=== PATIENT | male | born 1935 | race Caucasian/White ===

== ENCOUNTER 2018-09-27 09:39 | Inpatient (IN) | END 2018-09-30 17:11 | disposition home health service (06) | DRG 683 ==

== ENCOUNTER 2019-03-31 07:38 | Inpatient (IN) | payer MEDICARE, OTHER ==
[~2019-03-31] VITALS: Ht 172.7 cm; Wt 84.0 kg
[~2019-03-31 07:38] MED LIST: ATOR40TA21; BRIM10DR10 BOTH EYES; DORZ10DR5 BOTH EYES; GLIP5TAB3; KETO5DRO79 LEFT EYE; LOSA50TA2; METF-849; OMEG-135
[2019-03-31] MEDS ORDERED: LIDOCAINE 2%/EPI MPF (SDV) 20 ML VIAL INJ STA (07:41)
[2019-03-31] MEDS ORDERED: morphine 4 MG/ML VIAL IV STA (07:41)
[2019-03-31] MEDS ORDERED: ONDANSETRON 4 MG INJ IV STA (07:41)
[2019-03-31] MEDS ORDERED: DIPHTH/TET/ACEL PERTUSS (ADULT) 0.5 ML VIAL IM* ONE (08:00)
[2019-03-31] MEDS ORDERED: HYDROmorphONE 2 MG/ML SYG IV STA (09:15)
[2019-03-31] MEDS ORDERED: ONDANSETRON 4 MG INJ IV PRN ×2 (10:30→12:00)
[2019-03-31] MEDS ORDERED: ACETAMINOPHEN 325 MG TAB PO PRN ×2 (10:30→12:00)
[2019-03-31] MEDS ORDERED: ATOR40TA68 PO (10:37)
[2019-03-31] MEDS ORDERED: ATEN100T PO (11:00)
[2019-03-31] MEDS ORDERED: ICOS1CAP PO (11:01)
[2019-03-31] MEDS ORDERED: LOSA100T15 PO (11:01)
[2019-03-31] MEDS ORDERED: BRIM10DR10 BOTH EYES (11:02)
[2019-03-31] MEDS ORDERED: METF100010 PO (11:02)
[2019-03-31] MEDS ORDERED: EXEN2AUT SQ (11:03)
--- NOTE | 2019-03-31 11:15 | ERD ---
ER Documentation Chief Complaint Chief Complaint lac post head and R. ankle pain x 30 minutes post slip/fall HPI Patient is a 83-year-old male with diabetes and anemia who presents with a mechanical trip and fall. Please note that a [employer] registered nurse bone marrow transplant was used for the history and physical exam. The patient has a lack to the posterior scalp. He has right-sided leg pain and says "I think my leg is broken". This happened just prior to arrival. He has had no treatment as of yet. Upon review of old medical records this is the patient's eighth visit to the ER since 2007. His primary doctor is Dr. Alvarado. ROS All systems reviewed and are negative except as per history of present illness. Medications Home Meds Reported Medications Exenatide Microspheres (Bydureon Bcise) 2 Mg/0.85 Ml Auto.injct, 2 MG SQ Q7D 03/31/19 Brimonidine Tartrate* (Brimonidine Tartrate*) 0.15%-10ML Drop Opht, 1 DROP BOTH EYES BID, #1 EA 03/31/19 Metformin Hcl* (Metformin Hcl*) 1,000 Mg Tablet, 1000 MG PO WITH BREAKFAST DINNE, #60 TAB 03/31/19 Losartan Potassium* (Losartan Potassium*) 100 Mg Tablet, 100 MG PO DAILY, TAB 03/31/19 Icosapent Ethyl (VASCEPA) 1 Gm Capsule, 1 GM PO BID, CAP 03/31/19 Atenolol* (Atenolol*) 100 Mg Tablet, 100 MG PO DAILY, #30 TAB 03/31/19 Atorvastatin* (Atorvastatin*) 40 Mg Tablet, 40 MG PO QHS, #30 TAB 03/31/19 Discontinued Reported Medications Ketorolac Tromethamine Oph (Ketorolac Tromethamine Oph) 0.4%-5 Ml Opht Drops, 1 DROP LEFT EYE BID, EA 09/30/18 Brimonidine Tartrate* (Brimonidine Tartrate*) 0.15%-10ML Drop Opht, 1 DROP BOTH EYES BID, #1 EA 09/30/18 Dorzolamide Hcl* (Dorzolamide Hcl*) 10 Ml Drops, 1 DROP BOTH EYES BID, #1 EA 09/30/18 Fish Oil* (Fish Oil*) 1,000 Mg Cap 03/19/11 Losartan Potassium* (Cozaar*) 50 Mg Tablet 03/19/11 Glipizide* (Glucotrol*) 5 Mg Tablet 03/19/11 Metformin* (Glucophage*) 500 Mg Tab 03/19/11 Atorvastatin (Lipitor) 40 Mg Tablet 03/19/11 Allergies Allergies: Coded Allergies: No Known Allergy (Verified , 03/31/19) PMhx/Soc History of Surgery: No (LT knee joint 5 years ago; retina LT eye 2 years ago) Anesthesia Reaction: No Hx Neurological Disorder: No Hx Respiratory Disorders: No Hx Cardiac Disorders: Yes (HTN) Hx Psychiatric Problems: No Hx Miscellaneous Medical Probl: Yes (HTN , DM , CAD, CKD , MINERAL BONE D ISORDER , ) Hx Alcohol Use: No Hx Substance Use: No Hx Tobacco Use: No Smoking Status: Never smoker FmHx Family History: No diabetes Physical Exam Vitals Vital Signs Date Temp Pulse Resp B/P (MAP) Pulse Ox O2 O2 Flow FiO2 Time Delivery Rate 03/31/19 98.3 90 18 141/87 97 Nasal 2.0 10:18 (105) Cannula 03/31/19 Nasal 2 08:19 Cannula 03/31/19 98.0 82 18 163/95 97 07:46 (117) Physical Exam Const: Moderate distress Head: Lacerations to the posterior scalp approximately 3 cm each Eyes: Normal Conjunctiva ENT: Normal External Ears, Nose and Mouth. Neck: Full range of motion. No meningismus. Resp: Clear to auscultation bilaterally Cardio: Regular rate and rhythm, no murmurs Abd: Soft, non tender, non distended. Normal bowel sounds Skin: To 3 cm lacerations to the posterior scalp Back: No midline or flank tenderness Ext: Swelling and pain to the distal tibia and fibula deformity of the right lower extremity Neur: Awake and alert Psych: Normal Mood and Affect Result Diagram: 03/31/19 0803/31/19 08 Results 24 hrs Laboratory Tests Test 03/31/19 08:05 White Blood Count 5.9 10^3/ul Red Blood Count 3.98 10^6/ul Hemoglobin 11.9 g/dl Hematocrit 37.5 % Mean Corpuscular Volume 94.2 fl Mean Corpuscular Hemoglobin 29.9 pg Mean Corpuscular Hemoglobin Concent 31.7 g/dl Red Cell Distribution Width 12.5 % Platelet Count 205 10^3/UL Mean Platelet Volume 10.1 fl Immature Granulocytes % 0.500 % Neutrophils % 62.3 % Lymphocytes % 20.4 % Monocytes % 11.6 % Eosinophils % 4.4 % Basophils % 0.8 % Nucleated Red Blood Cells % 0.0 /100WBC Immature Granulocytes # 0.030 10^3/ul Neutrophils # 3.7 10^3/ul Lymphocytes # 1.2 10^3/ul Monocytes # 0.7 10^3/ul Eosinophils # 0.3 10^3/ul Basophils # 0.1 10^3/ul Nucleated Red Blood Cells # 0.0 10^3/ul Prothrombin Time 13.1 Sec Prothrombin Time Ratio 1.0 INR International Normalized Ratio 0.98 Activated Partial Thromboplast Time 28.1 Sec Sodium Level 143 mmol/L Potassium Level 4.9 mmol/L Chloride Level 106 mmol/L Carbon Dioxide Level 26 mmol/L Anion Gap 11 Blood Urea Nitrogen 21 mg/dl Creatinine 1.75 mg/dl Est Glomerular Filtrat Rate mL/min mL/min Glucose Level 154 mg/dl Calcium Level 9.2 mg/dl Troponin I < 0.012 ng/ml Current Medications Medications Dose Sig/Clifton Start Time Status Last (Trade) Ordered Route PRN Stop Time Admin Dose Reason Admin Morphine 4 mg ONCE STAT 03/31/19 DC 03/31/19 Sulfate IV 07:41 08:02 (morphine) 03/31/19 07:43 Ondansetron 4 mg ONCE STAT 03/31/19 DC 03/31/19 HCl (Zofran IV 07:41 08:02 Inj) 03/31/19 07:43 Diphtheria/ 0.5 ml ONCE ONCE 03/31/19 DC 03/31/19 Tetanus/Acell IM* 08:00 08:27 Pertussis 03/31/19 08:01 (Adacel) Lidocaine/ 20 ml ONCE STAT 03/31/19 DC 03/31/19 Epinephrine INJ 07:41 08:25 (Xylocaine 03/31/19 07:43 2%/ Epi Mpf(Sdv)) 1 mg ONCE STAT 03/31/19 DC 03/31/19 Hydromorphone IV 09:15 09:19 HCl 03/31/19 09:16 (Dilaudid) Ondansetron 4 mg BRIDGE ORDER 03/31/19 HCl (Zofran PRN IV 10:30 Inj) NAUSEA/VOMITI 04/01/19 10:29 NG 650 mg ER BRIDGE 03/31/19 Acetaminophen PRN PO 10:30 (Tylenol .MILD PAIN 04/01/19 10:29 Tab) 1-3 OR TEMP Procedures/MDM CT head shows no skull fracture or bleed per radiology. CT cervical spine shows no fracture per radiology. Tibia and fibula x-ray shows comminuted fracture of both bones per radiology. Chest x-ray negative per radiology. EKG read by me: Rate/Rhythm: Regular rate and rhythm at a normal rate Intervals: Normal Impression: No evidence of ischemia or arrhythmia Laceration Repair x2 by me: Anesthesia: 1% lidocaine [with] epinephrine locally Location: Posterior scalp Tendon/Joint/Nerves: No injury Foreign body: None detected after copious irrigation and exploration Technique: Ryan Complexity: No subcutaneous sutures/mucosal repair/edge excision Post Closure Length: 3 cm and 3 cm Patient's bleeding was easily controlled in the department and there is no indication of anemia. No evidence of compartment syndrome, neurologic injury, vascular injury, open joint, tendon laceration, or foreign body. Splint Note Type: Posterior leg Location: Right lower extremity Indication: Tibia and fibula fractures Splint Assessment: Neurovascularly intact post splint placement with good fit. Patient is an 83-year-old male who presents with a trip and fall. He has a scalp laceration which was closed with francisco. He has a tibia and fibula comminuted closed fracture of the right lower extremity. This was splinted. I spoke with Dr. Redding from orthopedic surgery who will see the patient for consultation and fixation. He will be admitted to the care of Dr. Joshua from the panel team to a medical surgical bed. Departure Diagnosis: Primary Impression: Fibula fracture Encounter type: initial encounter Fibula location: distal Fracture type: closed Fracture morphology: other fracture Laterality: right Qualified Codes: S82.831A - Other fracture of upper and lower end of right fibula, initial encounter for closed fracture Additional Impressions: Laceration Tibia fracture Encounter type: initial encounter Tibia location: distal Fracture type: closed Fracture morphology: other fracture Laterality: right Qualified Codes: S82.391A - Other fracture of lower end of right tibia, initial encounter for closed fracture Fall Encounter type: initial encounter Qualified Codes: W19.XXXA - Unspecified fall, initial encounter Condition: KAILEE Suárez MD Mar 31, 2019 11:15
[2019-03-31] MEDS: INSULIN ASPART [NOVOLOG] 3 ML PEN SC SCH ×3 (12:00→22:42)
[2019-03-31] MEDS ORDERED: NACL 0.9% 3 ML SYG IV SCH (12:00)
--- NOTE | 2019-03-31 12:29 | HP ---
Date/Time of Note Date/Time of Note DATE: 03/31/19 TIME: 12:29 Assessment/Plan VTE Prophylaxis SCD applied (from Nsg): Yes Pharmacological prophylaxis: NA/contraindicated Pharm contraindication: bleeding Lines/Catheters IV Catheter Type (from Nrsg): Saline Lock Assessment/Plan Hospital Course SUBJECTIVE: Lying in bed, no acute distress. OBJECTIVE: Vital signs-see below PHYSICAL EXAM: Constitutional: Adequately built,not in acute distress. HEENT:Scalp laceration-stapled. Eyes: Extraocular muscles intact. Anicteric sclerae. Pupils equal bilaterally, reactive to light. NECK: Supple without lymph node. CHEST: Clear and good breath sounds equally. No wheezing. No rhonchi. HEART: S1, S2. Regular rate and rhythm. ABDOMEN: Soft/non tender with no rebound tenderness. Bowel sounds were present. EXTREMITIES: RLE bandaged. No cyanosis, clubbing or edema. NEUROLOGIC: Alert and oriented x3. No focal deficit. No sensory deficit. PSYCHOSOCIAL: No signs of depression. INTEGUMENTARY: No open wounds. ASSESSMENT AND PLAN:83 yo M w/hearing loss,s/p cochlear implant, htn,cad,dm2 here s/p fall found to have scalp lacerations and Right tibial/fibular fracture... Right tibia/fibula fracture -Orthopedic on board and plan for surgical intervention tomorrow -Hold off to chemical anticoagulation secondary to scalp bleeding requiring staple -SCDs, pain control, nonweightbearing RLE -We will obtain a preoperative cardiac risk stratification. Acute kidney injury versus CKD -Acute kidney injury likely secondary to hemodynamics -We will give IV fluids. Hold losartan -Repeat renal function in a.m. Posterior scalp laceration -Status post washout/closure. Intact francisco. No further oozing noted. DM2 -Basal/Bolus insulin HTN -Resume home medications -Hold losartan secondary to acute kidney injury Coronary artery disease -Hold antiplatelet in anticipation for surgery. cont. beta-blockers and statin Dyslipidemia -Resume statin Anemia, likely chronic -H&H stable DVT prophylaxis: SCDs for now. Hold off to chemical anticoagulation secondary to scalp bleeding. Postoperative anticoagulation per surgery In anticipation for orthopedic surgery, will go ahead and obtain 2D echocardiogram and rule out ACS with serial troponin. Patient will have a formal cardiology evaluation for cardiac risk stratification. Once cardiac clearance is obtained, patient may proceed with surgical intervention. Rest of the management depend on clinical course Approximately 60 m spent on this history and physical. Patient was seen in collaboration with Dr. Joshua Result Diagram: 03/31/19 0805 03/31/19 0805 Results 24hrs Laboratory Tests Test 03/31/19 08:05 White Blood Count 5.9 Red Blood Count 3.98 L Hemoglobin 11.9 L Hematocrit 37.5 L Mean Corpuscular Volume 94.2 Mean Corpuscular Hemoglobin 29.9 Mean Corpuscular Hemoglobin Concent 31.7 L Red Cell Distribution Width 12.5 Platelet Count 205 Mean Platelet Volume 10.1 Immature Granulocytes % 0.500 H Neutrophils % 62.3 Lymphocytes % 20.4 Monocytes % 11.6 H Eosinophils % 4.4 Basophils % 0.8 Nucleated Red Blood Cells % 0.0 Immature Granulocytes # 0.030 Neutrophils # 3.7 Lymphocytes # 1.2 Monocytes # 0.7 Eosinophils # 0.3 Basophils # 0.1 Nucleated Red Blood Cells # 0.0 Prothrombin Time 13.1 Prothrombin Time Ratio 1.0 INR International Normalized Ratio 0.98 Activated Partial Thromboplast Time 28.1 Sodium Level 143 Potassium Level 4.9 Chloride Level 106 Carbon Dioxide Level 26 Anion Gap 11 Blood Urea Nitrogen 21 H Creatinine 1.75 H Est Glomerular Filtrat Rate mL/min Glucose Level 154 Calcium Level 9.2 Troponin I < 0.012 HPI/ROS Admit Date/Time Admit Date/Time Hx of Present Illness This is a 83-year-old male with a history of hypertension, hearing impairment, status post left cochlear implant, coronary artery disease, diabetes, gait imbalance/dizziness who also uses a walker at home, brought into the emergency room with scalp bleed, right lower extremity pain after fall. Patient was noted with a scalp laceration and right tibia/fibular fracture. At my encounter with the patient, he denied any chest pain, palpitation, shortness of breath, nausea, vomiting, abdominal pain, loss of consciousness, dizziness, headache, diarrhea, fever, chills, numbness, tingling or other constitutional symptoms. Labs showed hemoglobin 11.9, hematocrit 37.5, BUN [address] brain negative for acute bleed or infarct. Right ankle x-ray showed Comminuted angulated and displaced fracture of the distal tibial diaphysis and distal fibular shaft. Orthopedic consultation was called from the emergency room with plan for surgical intervention tomorrow. Patient's vital s igns able except for blood pressure 163/95. Scalp laceration was closed with francisco in the emergency room and a splint was applied to right lower extremity fracture. ROS A 12 point review of system was assessed and is negative other than what is mentioned in the HPI PMH/Family/Social Past Medical History See HPI Medications Current Medications Ondansetron HCl (Zofran Inj) 4 mg BRIDGE ORDER PRN IV NAUSEA/VOMITING; Start 03/31/19 at 10:30; Stop 04/01/19 at 10:29 Acetaminophen (Tylenol Tab) 650 mg ER BRIDGE PRN PO .MILD PAIN 1-3 OR TEMP; Start 03/31/19 at 10:30; Stop 04/01/19 at 10:29 IV Flush (NS 3 ml) 3 ml PER PROTOCOL IV ; Start 03/31/19 at 12:00 Ondansetron HCl (Zofran Inj) 4 mg Q6H PRN IV NAUSEA/VOMITING; Start 03/31/19 at 12:00 Acetaminophen (Tylenol Tab) 650 mg Q6H PRN PO .PAIN 1-3 OR TEMP; Start 03/31/19 at 12:00 Morphine Sulfate (morphine) 2 mg Q4H PRN IV .SEVERE PAIN 7-10; Start 03/31/19 at 12:00 Famotidine (Pepcid) 20 mg HS PO ; Start 03/31/19 at 21:00 Diagnostic Test (Pha) (Accu-Chek) 1 ea 02 XX ; Start 04/01/19 at 02:00 Insulin Glargine (Lantus) 12 units DAILY@2000 SC ; Start 03/31/19 at 20:00 Insulin Aspart (Novolog Insulin Pen) NOVOLOG *MILD* ALGORITHM WITH MEALS B EDTIME SC ; Start 03/31/19 at 12:00 Sodium Chloride 1,000 ml @ 80 mls/hr [id number] IV ; Start 03/31/19 at 12:00 Miscellaneous Information 1 ea NOTE XX ; Start 03/31/19 at 12:30 Glucose (Glutose) 15 gm Q15M PRN PO DECREASED GLUCOSE; Start 03/31/19 at 12:30 Glucose (Glutose) 22.5 gm Q15M PRN PO DECREASED GLUCOSE; Start 03/31/19 at 12:30 Dextrose (D50w Syringe) 25 ml Q15M PRN IV DECREASED GLUCOSE; Start 03/31/19 at 12:30 Dextrose (D50w Syringe) 50 ml Q15M PRN IV DECREASED GLUCOSE; Start 03/31/19 at 12:30 Glucagon (Glucagen) 1 mg Q15M PRN IM DECREASED GLUCOSE; Start 03/31/19 at 12:30 Glucose (Glutose) 15 gm Q15M PRN BUCCAL DECREASED GLUCOSE; Start 03/31/19 at 12:30 Coded Allergies: No Known Allergy (Verified , 03/31/19) Past Surgical History See HPI Social History Denied history of alcohol, smoking or illicit drug use Smoking Status: Never smoker Exam/Review of Systems Vital Signs Vitals Vital Signs Date Temp Pulse Resp B/P (MAP) Pulse Ox O2 O2 Flow FiO2 Time Delivery Rate 03/31/19 98.3 90 18 141/87 97 Nasal 2.0 10:18 (105) Cannula RUTH ANN HILARIO NP Mar 31, 2019 12:29
[2019-03-31] MEDS ORDERED: GLUCOSE GEL 15 GRAM TUBE BUCCAL PRN (12:30)
[2019-03-31] MEDS ORDERED: DEXTROSE 50% 50 ML SYRINGE IV PRN ×2 (12:30)
[2019-03-31] MEDS ORDERED: GLUCAGON 1 MG INJ IM PRN (12:30)
[2019-03-31] MEDS ORDERED: GLUCOSE GEL 15 GRAM TUBE PO PRN ×2 (12:30)
--- NOTE | 2019-03-31 13:13 | CONS ---
Assessment/Plan Assessment/Plan Hospital Course (Demo Recall) Pre-operative evaluation: The patient is to undergo intermediate risk surgery. He does not have any active decompensated cardiac conditions by history or exam. Echo shows normal EF and no severe valvular dysfunction. He is not very active at baseline but with daily activities he has no symptoms (except for dizziness/gait imbalance). 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 so Im sure bradyarrhythmias have been ruled out by now s/p cochlear implant CAD: unknown details DM HTN -ok to proceed with surgery as planned -restart home BP meds Consultation Date/Type/Reason Admit Date/Time Date of Consultation: Mar 31, 2019 Type of Consult Cardiology Reason for Consultation Pre-op evaluation Requesting Provider: RUTH ANN HILARIO NP Date/Time of Note DATE: 03/31/19 TIME: 13:11 Hx of Present Illness 83 yo M with a reported h/o CAD, HTN, hearing impairment/imbalance s/p left cochlear implant, who presented s/p fall and was found to have a scalp laceration and right tibia/fibular fracture with plans for surgical repair. He is Farsi speaking and a video monitor was initially used but due to hearing impairment and the lack of physical availability of the systems manager, he preferred to speak in Romanian with me instead. He notes that he has chronic imbalance/vertigo and has to use a walker. He recently had a cochlear implant and was to have a head CT to check on it in a few days but instead presented today post fall. He was using his walker when he felt very dizzy and lost his balance, causing the fall. No syncope. He walks with the walker in general and denies chest pain or SOB. No orthopnea, PND, edema. 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 Only complaint at this time is right leg pain. per HPI Past Medical History per HPI Home Meds Reported Medications Exenatide Microspheres (Bydureon Bcise) 2 Mg/0.85 Ml Auto.injct, 2 MG SQ Q7D 03/31/19 Brimonidine Tartrate* (Brimonidine Tartrate*) 0.15%-10ML Drop Opht, 1 DROP BOTH EYES BID, #1 EA 03/31/19 Metformin Hcl* (Metformin Hcl*) 1,000 Mg Tablet, 1000 MG PO WITH BREAKFAST DINNE, #60 TAB 03/31/19 Losartan Potassium* (Losartan Potassium*) 100 Mg Tablet, 100 MG PO DAILY, TAB 03/31/19 Icosapent Ethyl (VASCEPA) 1 Gm Capsule, 1 GM PO BID, CAP 03/31/19 Atenolol* (Atenolol*) 100 Mg Tablet, 100 MG PO DAILY, #30 TAB 03/31/19 Atorvastatin* (Atorvastatin*) 40 Mg Tablet, 40 MG PO QHS, #30 TAB 03/31/19 Discontinued Reported Medications Ketorolac Tromethamine Oph (Ketorolac Tromethamine Oph) 0.4%-5 Ml Opht Drops, 1 DROP LEFT EYE BID, EA 09/30/18 Brimonidine Tartrate* (Brimonidine Tartrate*) 0.15%-10ML Drop Opht, 1 DROP BOTH EYES BID, #1 EA 09/30/18 Dorzolamide Hcl* (Dorzolamide Hcl*) 10 Ml Drops, 1 DROP BOTH EYES BID, #1 EA 09/30/18 Fish Oil* (Fish Oil*) 1,000 Mg Cap 03/19/11 Losartan Potassium* (Cozaar*) 50 Mg Tablet 03/19/11 Glipizide* (Glucotrol*) 5 Mg Tablet 03/19/11 Metformin* (Glucophage*) 500 Mg Tab 03/19/11 Atorvastatin (Lipitor) 40 Mg Tablet 03/19/11 Medications Current Medications Ondansetron HCl (Zofran Inj) 4 mg BRIDGE ORDER PRN IV NAUSEA/VOMITING; Start 03/31/19 at 10:30; Stop 04/01/19 at 10:29 Acetaminophen (Tylenol Tab) 650 mg ER BRIDGE PRN PO .MILD PAIN 1-3 OR TEMP; Start 03/31/19 at 10:30; Stop 04/01/19 at 10:29 IV Flush (NS 3 ml) 3 ml PER PROTOCOL IV ; Start 03/31/19 at 12:00 Ondansetron HCl (Zofran Inj) 4 mg Q6H PRN IV NAUSEA/VOMITING; Start 03/31/19 at 12:00 Acetaminophen (Tylenol Tab) 650 mg Q6H PRN PO .PAIN 1-3 OR TEMP; Start 03/31/19 at 12:00 Morphine Sulfate (morphine) 2 mg Q4H PRN IV .SEVERE PAIN 7-10; Start 03/31/19 at 12:00 Famotidine (Pepcid) 20 mg HS PO ; Start 03/31/19 at 21:00 Diagnostic Test (Pha) (Accu-Chek) 1 ea 02 XX ; Start 04/01/19 at 02:00 Insulin Glargine (Lantus) 12 units DAILY@2000 SC ; Start 03/31/19 at 20:00 Insulin Aspart (Novolog Insulin Pen) NOVOLOG *MILD* ALGORITHM WITH MEALS BEDTIME SC ; Start 03/31/19 at 12:00 Sodium Chloride 1,000 ml @ 80 mls/hr [id number] IV ; Start 03/31/19 at 12:00 Miscellaneous Information 1 ea NOTE XX ; Start 03/31/19 at 12:30 Glucose (Glutose) 15 gm Q15M PRN PO DECREASED GLUCOSE; Start 03/31/19 at 12:30 Glucose (Glutose) 22.5 gm Q15M PRN PO DECREASED GLUCOSE; Start 03/31/19 at 12:30 Dextrose (D50w Syringe) 25 ml Q15M PRN IV DECREASED GLUCOSE; Start 03/31/19 at 12:30 Dextrose (D50w Syringe) 50 ml Q15M PRN IV DECREASED GLUCOSE; Start 03/31/19 at 12:30 Glucagon (Glucagen) 1 mg Q15M PRN IM DECREASED GLUCOSE; Start 03/31/19 at 12:30 Glucose (Glutose) 15 gm Q15M PRN BUCCAL DECREASED GLUCOSE; Start 03/31/19 at 12:30 Allergies: Coded Allergies: No Known Allergy (Verified , 03/31/19) Social History Smoking Status: Never smoker Exam/Review of Systems Vital Signs Vitals Vital Signs Date Temp Pulse Resp B/P (MAP) Pulse Ox O2 O2 Flow FiO2 Time Delivery Rate 03/31/19 98.3 90 18 141/87 97 Nasal 2.0 10:18 (105) Cannula Exam Constitutional: alert, oriented Psych: no complaints, nl mood/affect Head: normocephalic; No atraumatic (laceratiopn of scalp) Neck: supple; No jvd Respiratory: clear to auscultation; No crackles/rales Cardiovascular: regular rate and rhythm, systolic murmur (2/6 SUKHDEV); No edema Gastrointestinal: soft, non-tender; No distended Musculoskeletal: No nl extremities to inspection (right leg wrapped) Neurological: nl mental status, nl speech Additional Comments EKG: sinus with 1st degree AVB, no ST changes Labs Result Diagram: 03/31/19 0805 03/31/19 0805 Results 24hrs Laboratory Tests Test 03/31/19 08:05 White Blood Count 5.9 Red Blood Count 3.98 L Hemoglobin 11.9 L Hematocrit 37.5 L Mean Corpuscular Volume 94.2 Mean Corpuscular Hemoglobin 29.9 Mean Corpuscular Hemoglobin Concent 31.7 L Red Cell Distribution Width 12.5 Platelet Count 205 Mean Platelet Volume 10.1 Immature Granulocytes % 0.500 H Neutrophils % 62.3 Lymphocytes % 20.4 Monocytes % 11.6 H Eosinophils % 4.4 Basophils % 0.8 Nucleated Red Blood Cells % 0.0 Immature Granulocytes # 0.030 Neutrophils # 3.7 Lymphocytes # 1.2 Monocytes # 0.7 Eosinophils # 0.3 Basophils # 0.1 Nucleated Red Blood Cells # 0.0 Prothrombin Time 13.1 Prothrombin Time Ratio 1.0 INR International Normalized Ratio 0.98 Activated Partial Thromboplast Time 28.1 Sodium Level 143 Potassium Level 4.9 Chloride Level 106 Carbon Dioxide Level 26 Anion Gap 11 Blood Urea Nitrogen 21 H Creatinine 1.75 H Est Glomerular Filtrat Rate mL/min Glucose Level 154 Calcium Level 9.2 Troponin I < 0.012 Medications Medications Current Medications Ondansetron HCl (Zofran Inj) 4 mg BRIDGE ORDER PRN IV NAUSEA/VOMITING; Start 03/31/19 at 10:30; Stop 04/01/19 at 10:29 Acetaminophen (Tylenol Tab) 650 mg ER BRIDGE PRN PO .MILD PAIN 1-3 OR TEMP; Start 03/31/19 at 10:30; Stop 04/01/19 at 10:29 IV Flush (NS 3 ml) 3 ml PER PROTOCOL IV ; Start 03/31/19 at 12:00 Ondansetron HCl (Zofran Inj) 4 mg Q6H PRN IV NAUSEA/VOMITING; Start 03/31/19 at 12:00 Acetaminophen (Tylenol Tab) 650 mg Q6H PRN PO .PAIN 1-3 OR TEMP; Start 03/31/19 at 12:00 Morphine Sulfate (morphine) 2 mg Q4H PRN IV .SEVERE PAIN 7-10; Start 03/31/19 at 12:00 Famotidine (Pepcid) 20 mg HS PO ; Start 03/31/19 at 21:00 Diagnostic Test (Pha) (Accu-Chek) 1 ea 02 XX ; Start 04/01/19 at 02:00 Insulin Glargine (Lantus) 12 units DAILY@2000 SC ; Start 03/31/19 at 20:00 Insulin Aspart (Novolog Insulin Pen) NOVOLOG *MILD* ALGORITHM WITH MEALS BEDTIME SC ; Start 03/31/19 at 12:00 Sodium Chloride 1,000 ml @ 80 mls/hr [id number] IV ; Start 03/31/19 at 12:00 Miscellaneous Information 1 ea NOTE XX ; Start 03/31/19 at 12:30 Glucose (Glutose) 15 gm Q15M PRN PO DECREASED GLUCOSE; Start 03/31/19 at 12:30 Glucose (Glutose) 22.5 gm Q15M PRN PO DECREASED GLUCOSE; Start 03/31/19 at 12:30 Dextrose (D50w Syringe) 25 ml Q15M PRN IV DECREASED GLUCOSE; Start 03/31/19 at 12:30 Dextrose (D50w Syringe) 50 ml Q15M PRN IV DECREASED GLUCOSE; Start 03/31/19 at 12:30 Glucagon (Glucagen) 1 mg Q15M PRN IM DECREASED GLUCOSE; Start 03/31/19 at 12:30 Glucose (Glutose) 15 gm Q15M PRN BUCCAL DECREASED GLUCOSE; Start 03/31/19 at 12:30 SYED MENEZES Mar 31, 2019 13:13
--- NOTE | 2019-03-31 13:22 | RADRPT ---
Echocardiogram Report Patient Name: MATIAS OVIEDOatient ID: [id number] : 1935 (83y 8m)Study Date: 03/31/2019 12:03:29 PM Gender: MAccession #: [id number] Tech: Sj Putnam [facility] Location: -5 Ref.Physician: RUTH ANN HILARIO Height(Cm): BSA: Weight(Kg): Quality: Technically Difficult StudyOrder Physician: RUTH ANN HILARIO Account #: Procedures: Echocardiographic Report: Transthoracic echocardiogram with complete 2D, M-Mode, and doppler examination. Indications: Pre-op. Measurements: 2D/M Mode Doppler Measurement Value Normal Range Measurement Value Normal Range LVIDd 2D 3.4 [ 4.2 - 5.8 ] cm AV Peak Erick 1.4 [ 100.0 - 170.0 ] cm/sec LVIDs 2D 2.4 [ 2.5 - 4.0 ] cm AV Peak PG 8.0 [ 2.0 - 9.0 ] mmHg LVPWd 2D 0.9 [ 0.6 - 1.0 ] cm LVOT Peak Erick 1.5 [ 70.0 - 110.0 ] cm/sec IVSd 2D 1.6 [ 0.6 - 1.0 ] cm LVOT Peak PG 9.0 [ 2.0 - 6.0 ] mmHg AoR Diam 2D 2.5 [ 2.6 - 3.4 ] cm MV E Peak Erick 1.4 [ 60.0 - 130.0 ] cm/sec EDV 2D 47.4 [ 62.0 - 150.0 ] ml MV A Peak Erick 0.5 [ 100.0 - 120.0 ] cm/sec ESV 2D 20.4 [ 21.0 - 61.0 ] ml MV E/A 2.9 [ 0.8 - 1.5 ] ratio EF 2D 57.0 [ 52.0 - 72.0 ] percent MV Decel Time 141 [ 104 - 258 ] msec LA Dimen 2D 2.9 [ 3.0 - 4.0 ] cm Lat E` Erick 0.1 [ 10.0 - 15.0 ] cm/sec Lateral E/E` 10.3 [ 1.0 - 2.0 ] ratio Med E` Erick 0.1 cm/sec MV E/A 2.9 [ 0.8 - 1.5 ] ratio TR Peak Erick 2.1 [ 100.0 - 280.0 ] cm/sec TR Peak PG 17.0 mmHg RVSP 20.0 [ 10.0 - 36.0 ] mmHg RA Pressure 3.0 mmHg Findings: Left Ventricle: Normal left ventricular systolic function. Normal left ventricular cavity size. Moderate hypertrophy of the basal septum. No obstruction with and without valsalva. Ejection fraction is visually estimated at 65 %. Tissue Doppler/Mitral Doppler indices are within normal limits. Right Ventricle: Normal right ventricular size. Normal right ventricular systolic function. Left Atrium: There is moderate enlargement of left atrium. Right Atrium: The right atrium is normal in size. Mitral Valve: Mild mitral annular calcification. Trace mitral regurgitation. Aortic Valve: Aortic sclerosis without significant stenosis. Mild aortic valve regurgitation. Tricuspid Valve: Normal appearance of the tricuspid valve. The estimated Peak RVSP is 20 mmHg. There is trace tricuspid regurgitation. Pericardium: Normal pericardium with no significant pericardial effusion. Aorta: Normal aortic root. IVC: Normal size and normal respiratory collapse consistent with normal right atrial pressure. Conclusions: Normal left ventricular systolic function. Normal left ventricular cavity size. Moderate hypertrophy of the basal septum. No obstruction with and without valsalva. Ejection fraction is visually estimated at 65 %. Tissue Doppler/Mitral Doppler indices are within normal limits. Aortic sclerosis without significant stenosis. Mild aortic valve regurgitation. The estimated Peak RVSP is 20 mmHg. Normal size and normal respiratory collapse consistent with normal right atrial pressure. Electronically Signed By: Bolivar Case 2019-03-31 13:20:55 PDT
[2019-03-31] MEDS ORDERED: hydrALAzine 20 MG INJ IV PRN (15:00)
[2019-03-31] MEDS: SOD CHLORIDE 0.9% 1,000 ML IV SCH ×2 (15:05→16:11)
[2019-03-31] MEDS: morphine 2 MG INJ IV PRN ×2 (15:06→18:35)
[2019-03-31 15:48] VITALS: BP 145/82; RESP 14
[2019-03-31 16:02] VITALS: Ht 172.7 cm; Wt 84.0 kg
--- NOTE | 2019-03-31 16:42 | CONS ---
Assessment/Plan Assessment/Plan Hospital Course (Demo Recall) 83-year-old male with acute right distal third closed tibia and fibula shaft fracture. At this time I am recommending surgical fixation for the patient. I did discuss nonoperative treatment with the patient however I felt that it would be quite difficult to maintain reduction in the cast and here to have a lot more difficulty mobilizing. I recommended intramedullary nail of the right tibia. I reviewed the benefits and risks with the patient. The risks include but not limited to medical complications, anesthetic complications, cardiopulmonary complications, bleeding, infection, malunion, nonunion, hardware failure, neurovascular injury, need for further surgery. He understood these benefits and risks and wished to proceed with surgery. The patient is currently being seen by medicine cardiology who is currently working on optimizing the patient for surgery. Fortunately there is no operating time until tomorrow evening. Plan: Medical optimization Intramedullary nail right tibia with possible open reduction internal fixation of right fibula fracture 04/01/2019 Pain control Strict elevation and icing Nonweightbearing right lower extremity N.p.o. at midnight SCDs on left lower extremity for DVT prophylaxis. Consultation Date/Type/Reason Admit Date/Time Date of Consultation: Mar 31, 2019 Reason for Consultation right distal 1/3 tibia and fibula fracture Date/Time of Note DATE: 03/31/19 TIME: 16:40 Hx of Present Illness 83-year-old male presented to the emergency department after ground-level fall after losing his balance. He was found to have a closed distal third right tibia and fibula fracture. Orthopedics was consulted. 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 He has been using a walker since that cochlear implant for his disequilibrium. He had no previous known injury to the right lower leg. Denies any numbness and tingling. Complains of pain only on his right lower leg. He did have a scalp laceration which was treated by the emergency department. Head CT was negative for any intracranial injury or skull fracture. Patient denies fever, chills, shortness of breath, chest pain, nausea/vomiting, constipation, diarrhea, numbness, and tingling. Past Medical History DM2 HTN Coronary artery disease Dyslipidemia Anemia, likely chronic Home Meds Reported Medications Exenatide Microspheres (Bydureon Bcise) 2 Mg/0.85 Ml Auto.injct, 2 MG SQ Q7D 03/31/19 Brimonidine Tartrate* (Brimonidine Tartrate*) 0.15%-10ML Drop Opht, 1 DROP BOTH EYES BID, #1 EA 03/31/19 Metformin Hcl* (Metformin Hcl*) 1,000 Mg Tablet, 1000 MG PO WITH BREAKFAST DINNE, #60 TAB 03/31/19 Losartan Potassium* (Losartan Potassium*) 100 Mg Tablet, 100 MG PO DAILY, TAB 03/31/19 Icosapent Ethyl (VASCEPA) 1 Gm Capsule, 1 GM PO BID, CAP 03/31/19 Atenolol* (Atenolol*) 100 Mg Tablet, 100 MG PO DAILY, #30 TAB 03/31/19 Atorvastatin* (Atorvastatin*) 40 Mg Tablet, 40 MG PO QHS, #30 TAB 03/31/19 Discontinued Reported Medications Ketorolac Tromethamine Oph (Ketorolac Tromethamine Oph) 0.4%-5 Ml Opht Drops, 1 DROP LEFT EYE BID, EA 09/30/18 Brimonidine Tartrate* (Brimonidine Tartrate*) 0.15%-10ML Drop Opht, 1 DROP BOTH EYES BID, #1 EA 09/30/18 Dorzolamide Hcl* (Dorzolamide Hcl*) 10 Ml Drops, 1 DROP BOTH EYES BID, #1 EA 09/30/18 Fish Oil* (Fish Oil*) 1,000 Mg Cap 03/19/11 Losartan Potassium* (Cozaar*) 50 Mg Tablet 03/19/11 Glipizide* (Glucotrol*) 5 Mg Tablet 03/19/11 Metformin* (Glucophage*) 500 Mg Tab 03/19/11 Atorvastatin (Lipitor) 40 Mg Tablet 03/19/11 Medications Current Medications IV Flush (NS 3 ml) 3 ml PER PROTOCOL IV ; Start 03/31/19 at 12:00 Ondansetron HCl (Zofran Inj) 4 mg Q6H PRN IV NAUSEA/VOMITING; Start 03/31/19 at 12:00 Acetaminophen (Tylenol Tab) 650 mg Q6H PRN PO .PAIN 1-3 OR TEMP; Start 03/31/19 at 12:00 Morphine Sulfate (morphine) 2 mg Q4H PRN IV .SEVERE PAIN 7-10 Last administered on 03/31/19at 15:06; Admin Dose 2 MG; Start 03/31/19 at 12:00 Famotidine (Pepcid) 20 mg HS PO ; Start 03/31/19 at 21:00 Diagnostic Test (Pha) (Accu-Chek) 1 ea 02 XX ; Start 04/01/19 at 02:00 Insulin Glargine (Lantus) 12 units DAILY@2000 SC ; Start 03/31/19 at 20:00 Insulin Aspart (Novolog Insulin Pen) NOVOLOG *MILD* ALGORITHM WITH MEALS BEDTIME SC ; Start 03/31/19 at 12:00 Sodium Chloride 1,000 ml @ 80 mls/hr [id number] IV Last administered on 03/31/19at 16:11; Admin Dose 80 MLS/HR; Start 03/31/19 at 12:00 Miscellaneous Information 1 ea NOTE XX ; Start 03/31/19 at 12:30 Glucose (Glutose) 15 gm Q15M PRN PO DECREASED GLUCOSE; Start 03/31/19 at 12:30 Glucose (Glutose) 22.5 gm Q15M PRN PO DECREASED GLUCOSE; Start 03/31/19 at 12:30 Dextrose (D50w Syringe) 25 ml Q15M PRN IV DECREASED GLUCOSE; Start 03/31/19 at 12:30 Dextrose (D50w Syringe) 50 ml Q15M PRN IV DECREASED GLUCOSE; Start 03/31/19 at 12:30 Glucagon (Glucagen) 1 mg Q15M PRN IM DECREASED GLUCOSE; Start 03/31/19 at 12:30 Glucose (Glutose) 15 gm Q15M PRN BUCCAL DECREASED GLUCOSE; Start 03/31/19 at 12:30 Atenolol (Tenormin) 100 mg DAILY PO ; Start 03/31/19 at 15:00 Atorvastatin Calcium (Lipitor) 40 mg QHS PO ; Start 03/31/19 at 21:00 Brimonidine Tartrate (Alphagan P 0.15%) 1 drop BID BOTH EYES ; Start 03/31/19 at 21:00 Hydralazine HCl (Apresoline) 10 mg Q6H PRN IV sbp>160; Start 03/31/19 at 15:00 Allergies: Coded Allergies: No Known Allergy (Verified , 03/31/19) Past Surgical History Past Surgical Hx: noncontributory Family History Significant Family History: no pertinent family hx Social History Alcohol Use: rarely Smoking Status: Never smoker Drug Use: none Exam/Review of Systems Exam Vitals Vital Signs Date Temp Pulse Resp B/P (MAP) Pulse Ox O2 O2 Flow FiO2 Time Delivery Rate 03/31/19 98.7 14 145/82 98 Room Air 15:48 (103) 03/31/19 102 2.0 14:48 Exam General: Awake, alert, in no acute distress, pleasant and cooperative Heart: regular rhythm Lungs: breathing comfortably, no tachypnea or dyspnea MUSCULOSKELETAL: Right lower extremity: There is gross deformity of the distal tibia. The skin is intact. There is ecchymosis over the anterior distal tibia. There is tenderness palpation over the distal tibia and fibula. Sensation intact to light touch in a sural, saphenous, deep peroneal, superficial peroneal, medial and lateral plantar nerve distribution. Motor is intact, patient able to dorsiflex and plantarflex ankle and extend and flex great toe. Dorsalis Pedis pulse +2, Brisk capillary refill. Compartments are soft. Calves non-tender to palpation bilaterally. Results Result Diagram: 03/31/19 0803/31/19 08 Results 24hrs Laboratory Tests Test 03/31/19 08:05 03/31/19 12:43 03/31/19 16:17 White Blood Count 5.9 Red Blood Count 3.98 L Hemoglobin 11.9 L Hematocrit 37.5 L Mean Corpuscular Volume 94.2 Mean Corpuscular Hemoglobin 29.9 Mean Corpuscular Hemoglobin Concent 31.7 L Red Cell Distribution Width 12.5 Platelet Count 205 Mean Platelet Volume 10.1 Immature Granulocytes % 0.500 H Neutrophils % 62.3 Lymphocytes % 20.4 Monocytes % 11.6 H Eosinophils % 4.4 Basophils % 0.8 Nucleated Red Blood Cells % 0.0 Immature Granulocytes # 0.030 Neutrophils # 3.7 Lymphocytes # 1.2 Monocytes # 0.7 Eosinophils # 0.3 Basophils # 0.1 Nucleated Red Blood Cells # 0.0 Prothrombin Time 13.1 Prothrombin Time Ratio 1.0 INR International Normalized Ratio 0.98 Activated Partial Thromboplast Time 28.1 Sodium Level 143 Potassium Level 4.9 Chloride Level 106 Carbon Dioxide Level 26 Anion Gap 11 Blood Urea Nitrogen 21 H Creatinine 1.75 H Est Glomerular Filtrat Rate mL/min Glucose Level 154 Calcium Level 9.2 Troponin I < 0.012 < 0.012 Creatine Kinase 187 Creatine Kinase Index 0.9 Creatinine Kinase MB (Mass) 1.71 Bedside Glucose 103 Imaging Imaging 2 views of the right tib-fib, 3 views of the right ankle, 2 views of the right knee were personally reviewed. Demonstrate a distal one third oblique tibia fracture. There is a comminuted distal third fibula shaft fracture. The ankle joint is reduced. The syndesmosis is not not disrupted. Medications Medication Current Medications IV Flush (NS 3 ml) 3 ml PER PROTOCOL IV ; Start 03/31/19 at 12:00 Ondansetron HCl (Zofran Inj) 4 mg Q6H PRN IV NAUSEA/VOMITING; Start 03/31/19 at 12:00 Acetaminophen (Tylenol Tab) 650 mg Q6H PRN PO .PAIN 1-3 OR TEMP; Start 03/31/19 at 12:00 Morphine Sulfate (morphine) 2 mg Q4H PRN IV .SEVERE PAIN 7-10 Last administered on 03/31/19at 15:06; Admin Dose 2 MG; Start 03/31/19 at 12:00 Famotidine (Pepcid) 20 mg HS PO ; Start 03/31/19 at 21:00 Diagnostic Test (Pha) (Accu-Chek) 1 ea 02 XX ; Start 04/01/19 at 02:00 Insulin Glargine (Lantus) 12 units DAILY@2000 SC ; Start 03/31/19 at 20:00 Insulin Aspart (Novolog Insulin Pen) NOVOLOG *MILD* ALGORITHM WITH MEALS BEDTIME SC ; Start 03/31/19 at 12:00 Sodium Chloride 1,000 ml @ 80 mls/hr [id number] IV Last administered on 03/31/19at 16:11; Admin Dose 80 MLS/HR; Start 03/31/19 at 12:00 Miscellaneous Information 1 ea NOTE XX ; Start 03/31/19 at 12:30 Glucose (Glutose) 15 gm Q15M PRN PO DECREASED GLUCOSE; Start 03/31/19 at 12:30 Glucose (Glutose) 22.5 gm Q15M PRN PO DECREASED GLUCOSE; Start 03/31/19 at 12:30 Dextrose (D50w Syringe) 25 ml Q15M PRN IV DECREASED GLUCOSE; Start 6/26/19 at 12:30 Dextrose (D50w Syringe) 50 ml Q15M PRN IV DECREASED GLUCOSE; Start 03/31/19 at 12:30 Glucagon (Glucagen) 1 mg Q15M PRN IM DECREASED GLUCOSE; Start 03/31/19 at 12:30 Glucose (Glutose) 15 gm Q15M PRN BUCCAL DECREASED GLUCOSE; Start 03/31/19 at 12:30 Atenolol (Tenormin) 100 mg DAILY PO ; Start 03/31/19 at 15:00 Atorvastatin Calcium (Lipitor) 40 mg QHS PO ; Start 03/31/19 at 21:00 Brimonidine Tartrate (Alphagan P 0.15%) 1 drop BID BOTH EYES ; Start 03/31/19 at 21:00 Hydralazine HCl (Apresoline) 10 mg Q6H PRN IV sbp>160; Start 03/31/19 at 15:00 JANIE KENNEDY MD Mar 31, 2019 16:42
[2019-03-31 17:25] VITALS: BP 111/72; PULSE 110
[2019-03-31] MEDS: ATENOLOL 100 MG TAB PO SCH (17:28)
[2019-03-31 19:15] VITALS: BP 134/74; PULSE 108; RESP 16
[2019-03-31] MEDS: FAMOTIDINE 20 MG TAB PO SCH (21:43)
[2019-03-31] MEDS: ATORVASTATIN 40 MG TAB PO SCH (21:44)
[2019-03-31] MEDS: BRIMONIDINE 0.15% 5 ML OPH BOTH EYES SCH (21:46)
[2019-03-31] MEDS: INSULIN GLARGINE [LANTus] (100 UNITS/ML) SYG SC SCH (22:41)
[2019-04-01] VITALS (31 sets, daily range): BP systolic 111–152; BP diastolic 61–85; PULSE 69–112; RESP 12–28
[2019-04-01] MEDS: ACCU-CHEK XX SCH (02:00)
[2019-04-01] MEDS: SOD CHLORIDE 0.9% 1,000 ML IV SCH ×2 (02:46→15:02)
[2019-04-01] MEDS: INSULIN ASPART [NOVOLOG] 3 ML PEN SC SCH ×4 (07:50→21:00)
[2019-04-01] MEDS: BRIMONIDINE 0.15% 5 ML OPH BOTH EYES SCH ×2 (08:39→21:00)
[2019-04-01] MEDS: morphine 2 MG INJ IV PRN (08:44)
[2019-04-01] MEDS: ATENOLOL 100 MG TAB PO SCH (09:00)
--- NOTE | 2019-04-01 10:56 | CONS ---
Consult Date/Type/Reason Admit Date/Time Mar 31, 2019 at 10:05 Initial Consult Date 03/31/19 Type of Consultation: cv Requesting Provider: RUTH ANN HILARIO NP Date/Time of Note DATE: 04/01/19 TIME: 10:51 Subjective Cardiology follow-up progress note Subjective: Case discussed Patient with no chest pain or pressure. He still complains of foot pain. Awaiting surgery Patient reports to me that he has had a recent stress test done at office about 2 months ago. Per patient report the stress test was normal. Objective: General: no acute distress HEENT: NC/AT. pupils are equal. round. NECK: NO JVD. no stridor. CV: RRR. systolic murmur; no gallop or rubs. PULM: no wheezing or rhonchi. GI: SOFT, NT, ND, no rebound or guarding Extremity: trace LE edema. Right leg is in a boot neuro: awake and alert, OX3. Psych: calm and pleasant rectal: deferred Objective Vitals Vital Signs Date Temp Pulse Resp B/P (MAP) Pulse Ox O2 O2 Flow FiO2 Time Delivery Rate 04/01/19 98.4 70 18 115/64 92 Room Air 07:17 (81) 03/31/19 2.0 14:48 Intake and Output 03/31/19 03/31/19 04/01/19 1515:00 23:00 07:00 IntakeIntake Total 600 ml 1000 ml OutputOutput Total 900 ml 300 ml BalanceBalance -300 ml 700 ml Results/Medications Result Diagram: 04/01/19 0454 04/01/19 0454 Results 24 hrs Laboratory Tests Test 03/31/19 12:43 03/31/19 16:17 03/31/19 18:16 03/31/19 22:39 Creatine Kinase 187 244 H Creatine Kinase 0.9 0.9 Index Creatinine Kinase MB 1.71 2.09 (Mass) Troponin I < 0.012 < 0.012 Bedside Glucose 103 186 Test 03/31/19 23:55 04/01/19 02:40 04/01/19 04:54 04/01/19 08:38 Creatine Kinase 221 H Creatine Kinase 0.7 Index Creatinine Kinase MB 1.62 (Mass) Troponin I 0.013 Bedside Glucose 155 120 White Blood Count 7.6 # Red Blood Count 3.44 L Hemoglobin 10.3 L Hematocrit 31.9 L Mean Corpuscular 92.7 Volume Mean Corpuscular 29.9 Hemoglobin Mean Corpuscular 32.3 Hemoglobin Concent Red Cell 12.8 Distribution Width Platelet Count 173 Mean Platelet Volume 10.2 Immature 0.300 Granulocytes % Neutrophils % 62.5 Lymphocytes % 16.6 Monocytes % 18.5 H Eosinophils % 1.6 Basophils % 0.5 Nucleated Red Blood 0.0 Cells % Immature 0.020 Granulocytes # Neutrophils # 4.7 Lymphocytes # 1.3 Monocytes # 1.4 H Eosinophils # 0.1 Basophils # 0.0 Nucleated Red Blood 0.0 Cells # Sodium Level 142 Potassium Level 5.0 Chloride Level 106 Carbon Dioxide Level 27 Anion Gap 9 Blood Urea Nitrogen 23 H Creatinine 1.74 H Est Glomerular Filtrat Rate mL/min Glucose Level 143 Hemoglobin A1c 5.8 Calcium Level 8.6 Magnesium Level 1.8 Total Bilirubin 0.6 Direct Bilirubin 0.00 Indirect Bilirubin 0.6 Aspartate Amino 22 Transf (AST/SGOT) Alanine 29 Aminotransferase (AL T/SGPT) Alkaline Phosphatase 75 Total Protein 5.9 L Albumin 3.4 Globulin 2.50 Albumin/Globulin 1.36 Ratio Triglycerides Level 101 Cholesterol Level 103 LDL Cholesterol, 58 Calculated HDL Cholesterol 25 L Cholesterol/HDL 4.1 Ratio Home Meds Reported Medications Exenatide Microspheres (Bydureon Bcise) 2 Mg/0.85 Ml Auto.injct, 2 MG SQ Q7D 03/31/19 Brimonidine Tartrate* (Brimonidine Tartrate*) 0.15%-10ML Drop Opht, 1 DROP BOTH EYES BID, #1 EA 03/31/19 Metformin Hcl* (Metformin Hcl*) 1,000 Mg Tablet, 1000 MG PO WITH BREAKFAST DINNE, #60 TAB 03/31/19 Losartan Potassium* (Losartan Potassium*) 100 Mg Tablet, 100 MG PO DAILY, TAB 03/31/19 Icosapent Ethyl (VASCEPA) 1 Gm Capsule, 1 GM PO BID, CAP 03/31/19 Atenolol* (Atenolol*) 100 Mg Tablet, 100 MG PO DAILY, #30 TAB 03/31/19 Atorvastatin* (Atorvastatin*) 40 Mg Tablet, 40 MG PO QHS, #30 TAB 03/31/19 Discontinued Reported Medications Ketorolac Tromethamine Oph (Ketorolac Tromethamine Oph) 0.4%-5 Ml Opht Drops, 1 DROP LEFT EYE BID, EA 09/30/18 Brimonidine Tartrate* (Brimonidine Tartrate*) 0.15%-10ML Drop Opht, 1 DROP BOTH EYES BID, #1 EA 09/30/18 Dorzolamide Hcl* (Dorzolamide Hcl*) 10 Ml Drops, 1 DROP BOTH EYES BID, #1 EA 09/30/18 Fish Oil* (Fish Oil*) 1,000 Mg Cap 03/19/11 Losartan Potassium* (Cozaar*) 50 Mg Tablet 03/19/11 Glipizide* (Glucotrol*) 5 Mg Tablet 03/19/11 Metformin* (Glucophage*) 500 Mg Tab 03/19/11 Atorvastatin (Lipitor) 40 Mg Tablet 03/19/11 Medications Current Medications IV Flush (NS 3 ml) 3 ml PER PROTOCOL IV ; Start 03/31/19 at 12:00 Ondansetron HCl (Zofran Inj) 4 mg Q6H PRN IV NAUSEA/VOMITING; Start 03/31/19 at 12:00 Acetaminophen (Tylenol Tab) 650 mg Q6H PRN PO .PAIN 1-3 OR TEMP; Start 03/31/19 at 12:00 Morphine Sulfate (morphine) 2 mg Q4H PRN IV .SEVERE PAIN 7-10 Last administered on 04/01/19at 08:44; Admin Dose 2 MG; Start 03/31/19 at 12:00 Famotidine (Pepcid) 20 mg HS PO Last administered on 03/31/19at 21:43; Admin Dose 20 MG; Start 03/31/19 at 21:00 Diagnostic Test (Pha) (Accu-Chek) 1 ea 02 XX ; Start 04/01/19 at 02:00 Insulin Glargine (Lantus) 12 units DAILY@2000 SC Last administered on 03/31/19at 22:41; Admin Dose 12 UNITS; Start 03/31/19 at 20:00 Insulin Aspart (Novolog Insulin Pen) NOVOLOG *MILD* ALGORITHM WITH MEALS BEDTIME SC Last administered on 03/31/19at 22:42; Admin Dose 1 UNIT; Start 03/31/19 at 12:00 Sodium Chloride 1,000 ml @ 80 mls/hr [id number] IV Last administered on 04/01/19at 02:46; Admin Dose 80 MLS/HR; Start 03/31/19 at 12:00 Miscellaneous Information 1 ea NOTE XX ; Start 03/31/19 at 12:30 Glucose (Glutose) 15 gm Q15M PRN PO DECREASED GLUCOSE; Start 03/31/19 at 12:30 Glucose (Glutose) 22.5 gm Q15M PRN PO DECREASED GLUCOSE; Start 03/31/19 at 12:30 Dextrose (D50w Syringe) 25 ml Q15M PRN IV DECREASED GLUCOSE; Start 03/31/19 at 12:30 Dextrose (D50w Syringe) 50 ml Q15M PRN IV DECREASED GLUCOSE; Start 03/31/19 at 12:30 Glucagon (Glucagen) 1 mg Q15M PRN IM DECREASED GLUCOSE; Start 03/31/19 at 12:30 Glucose (Glutose) 15 gm Q15M PRN BUCCAL DECREASED GLUCOSE; Start 03/31/19 at 12:30 Atenolol (Tenormin) 100 mg DAILY PO Last administered on 03/31/19at 17:28; Admin Dose 100 MG; Start 03/31/19 at 15:00 Atorvastatin Calcium (Lipitor) 40 mg QHS PO Last administered on 03/31/19at 21:44; Admin Dose 40 MG; Start 03/31/19 at 21:00 Brimonidine Tartrate (Alphagan P 0.15%) 1 drop BID BOTH EYES Last administered on 04/01/19at 08:39; Admin Dose 1 DROP; Start 03/31/19 at 21:00 Hydralazine HCl (Apresoline) 10 mg Q6H PRN IV sbp>160; Start 03/31/19 at 15:00 Assessment/Plan Hospital Course (Demo Recall) Cardiovascular preop evaluation Coronary artery disease with history of PCI Renal insufficiency Hypertension: Under good control Anemia Diabetes Recommendations: I will resume patient home statins Diabetic management as per internal medicine Continue with the beta-lourdes We will asked Dr. Briggs to evaluate the patient from renal standpoint. He has seen the patient previously Patient reports having a full cardiac work-up including a stress test on as an outpatient in the past 2 to 3 months Thank you for his referral. We will continue to follow along with you GRAY BARLOW MD [facility] GRAY BARLOW MD Apr 01, 2019 10:55
--- NOTE | 2019-04-01 12:31 | PN ---
Date/Time of Note Date/Time of Note DATE: 04/01/19 TIME: 12:27 Assessment/Plan VTE Prophylaxis Risk score (from Ns)>0 risk: 13 SCD applied (from Ns): Yes Pharmacological prophylaxis: NA/contraindicated Pharm contraindication: bleeding Lines/Catheters IV Catheter Type (from [facility]): Peripheral IV Assessment/Plan Hospital Course SUBJECTIVE: Lying in bed, no acute distress. OBJECTIVE: Vital signs-see below PHYSICAL EXAM: Constitutional: Adequately built,not in acute distress. HEENT:Scalp laceration-stapled. Eyes: Extraocular muscles intact. Anicteric sclerae. Pupils equal bilaterally, reactive to light. NECK: Supple without lymph node. CHEST: Clear and good breath sounds equally. No wheezing. No rhonchi. HEART: S1, S2. Regular rate and rhythm. ABDOMEN: Soft/non tender with no rebound tenderness. Bowel sounds were present. EXTREMITIES: RLE bandaged. No cyanosis, clubbing or edema. NEUROLOGIC: Alert and oriented x3. No focal deficit. No sensory deficit. PSYCHOSOCIAL: No signs of depression. INTEGUMENTARY: No open wounds. ASSESSMENT AND PLAN:83 yo M w/hearing loss,s/p cochlear implant, htn,cad,dm2,ckd here s/p fall found to have scalp lacerations and Right tibial/fibular fracture... Right tibia/fibula fracture -For ORIF today -dvt ppx (per ortho),pain control Acute kidney on CKD -appreciates renal involvement -cont.gentle hydration -renal us Posterior scalp laceration -Status post washout/closure. -francisco intact/c/d/i DM2 -stable -Basal/Bolus insulin HTN -cont.home meds except ARB Coronary artery disease -Hold antiplatelet in anticipation for surgery. cont. beta-blockers and statin Dyslipidemia -on statin Anemia, likely chronic -H&H stable DVT prophylaxis: SCDs (chemical atc per ortho choice). Given patient's medical condition, patient is at a low to intermediate risk for any untoward medical events for surgery. However, benefit likely outweigh risks and recommended to have surgical intervention. Patient was seen in collaboration with Dr. Joshua Result Diagram: 04/01/19 0454 04/01/19 0454 Results 24hrs Laboratory Tests Test 03/31/19 12:43 03/31/19 16:17 6/26/19 18:16 03/31/19 22:39 Creatine Kinase 187 244 H Creatine Kinase 0.9 0.9 Index Creatinine Kinase MB 1.71 2.09 (Mass) Troponin I < 0.012 < 0.012 Bedside Glucose 103 186 Test 03/31/19 23:55 04/01/19 02:40 04/01/19 04:54 04/01/19 08:38 Creatine Kinase 221 H Creatine Kinase 0.7 Index Creatinine Kinase MB 1.62 (Mass) Troponin I 0.013 Bedside Glucose 155 120 White Blood Count 7.6 # Red Blood Count 3.44 L Hemoglobin 10.3 L Hematocrit 31.9 L Mean Corpuscular 92.7 Volume Mean Corpuscular 29.9 Hemoglobin Mean Corpuscular 32.3 Hemoglobin Concent Red Cell 12.8 Distribution Width Platelet Count 173 Mean Platelet Volume 10.2 Immature 0.300 Granulocytes % Neutrophils % 62.5 Lymphocytes % 16.6 Monocytes % 18.5 H Eosinophils % 1.6 Basophils % 0.5 Nucleated Red Blood 0.0 Cells % Immature 0.020 Granulocytes # Neutrophils # 4.7 Lymphocytes # 1.3 Monocytes # 1.4 H Eosinophils # 0.1 Basophils # 0.0 Nucleated Red Blood 0.0 Cells # Sodium Level 142 Potassium Level 5.0 Chloride Level 106 Carbon Dioxide Level 27 Anion Gap 9 Blood Urea Nitrogen 23 H Creatinine 1.74 H Est Glomerular Filtrat Rate mL/min Glucose Level 143 Hemoglobin A1c 5.8 Calcium Level 8.6 Magnesium Level 1.8 Total Bilirubin 0.6 Direct Bilirubin 0.00 Indirect Bilirubin 0.6 Aspartate Amino 22 Transf (AST/SGOT) Alanine 29 Aminotransferase (AL T/SGPT) Alkaline Phosphatase 75 Total Protein 5.9 L Albumin 3.4 Globulin 2.50 Albumin/Globulin 1.36 Ratio Triglycerides Level 101 Cholesterol Level 103 LDL Cholesterol, 58 Calculated HDL Cholesterol 25 L Cholesterol/HDL 4.1 Ratio Exam/Review of Systems Exam Vitals Vital Signs Date Temp Pulse Resp B/P (MAP) Pulse Ox O2 O2 Flow FiO2 Time Delivery Rate 04/01/19 98.4 70 18 115/64 92 Room Air 07:17 (81) 03/31/19 2.0 14:48 Intake and Output 03/31/19 03/31/19 04/01/19 1515:00 23:00 07:00 IntakeIntake Total 600 ml 1000 ml OutputOutput Total 900 ml 300 ml BalanceBalance -300 ml 700 ml Results Results 24hrs Laboratory Tests Test 03/31/19 12:43 03/31/19 16:17 03/31/19 18:16 03/31/19 22:39 Creatine Kinase 187 244 H Creatine Kinase 0.9 0.9 Index Creatinine Kinase MB 1.71 2.09 (Mass) Troponin I < 0.012 < 0.012 Bedside Glucose 103 186 Test 03/31/19 23:55 04/01/19 02:40 04/01/19 04:54 04/01/19 08:38 Creatine Kinase 221 H Creatine Kinase 0.7 Index Creatinine Kinase MB 1.62 (Mass) Troponin I 0.013 Bedside Glucose 155 120 White Blood Count 7.6 # Red Blood Count 3.44 L Hemoglobin 10.3 L Hematocrit 31.9 L Mean Corpuscular 92.7 Volume Mean Corpuscular 29.9 Hemoglobin Mean Corpuscular 32.3 Hemoglobin Concent Red Cell 12.8 Distribution Width Platelet Count 173 Mean Platelet Volume 10.2 Immature 0.300 Granulocytes % Neutrophils % 62.5 Lymphocytes % 16.6 Monocytes % 18.5 H Eosinophils % 1.6 Basophils % 0.5 Nucleated Red Blood 0.0 Cells % Immature 0.020 Granulocytes # Neutrophils # 4.7 Lymphocytes # 1.3 Monocytes # 1.4 H Eosinophils # 0.1 Basophils # 0.0 Nucleated Red Blood 0.0 Cells # Sodium Level 142 Potassium Level 5.0 Chloride Level 106 Carbon Dioxide Level 27 Anion Gap 9 Blood Urea Nitrogen 23 H Creatinine 1.74 H Est Glomerular Filtrat Rate mL/min Glucose Level 143 Hemoglobin A1c 5.8 Calcium Level 8.6 Magnesium Level 1.8 Total Bilirubin 0.6 Direct Bilirubin 0.00 Indirect Bilirubin 0.6 Aspartate Amino 22 Transf (AST/SGOT) Alanine 29 Aminotransferase (AL T/SGPT) Alkaline Phosphatase 75 Total Protein 5.9 L Albumin 3.4 Globulin 2.50 Albumin/Globulin 1.36 Ratio Triglycerides Level 101 Cholesterol Level 103 LDL Cholesterol, 58 Calculated HDL Cholesterol 25 L Cholesterol/HDL 4.1 Ratio Medications Medication Current Medications IV Flush (NS 3 ml) 3 ml PER PROTOCOL IV ; Start 03/31/19 at 12:00 Ondansetron HCl (Zofran Inj) 4 mg Q6H PRN IV NAUSEA/VOMITING; Start 03/31/19 at 12:00 Acetaminophen (Tylenol Tab) 650 mg Q6H PRN PO .PAIN 1-3 OR TEMP; Start 03/31/19 at 12:00 Morphine Sulfate (morphine) 2 mg Q4H PRN IV .SEVERE PAIN 7-10 Last administered on 04/01/19at 08:44; Admin Dose 2 MG; Start 03/31/19 at 12:00 Famotidine (Pepcid) 20 mg HS PO Last administered on 03/31/19at 21:43; Admin Dose 20 MG; Start 03/31/19 at 21:00 Diagnostic Test (Pha) (Accu-Chek) 1 ea 02 XX ; Start 04/01/19 at 02:00 Insulin Glargine (Lantus) 12 units DAILY@2000 SC Last administered on 03/31/19at 22:41; Admin Dose 12 UNITS; Start 03/31/19 at 20:00 Insulin Aspart (Novolog Insulin Pen) NOVOLOG *MILD* ALGORITHM WITH MEALS BEDTIME SC Last administered on 03/31/19at 22:42; Admin Dose 1 UNIT; Start 03/31/19 at 12:00 Sodium Chloride 1,000 ml @ 80 mls/hr [id number] IV Last administered on 04/01/19at 02:46; Admin Dose 80 MLS/HR; Start 03/31/19 at 12:00 Miscellaneous Information 1 ea NOTE XX ; Start 03/31/19 at 12:30 Glucose (Glutose) 15 gm Q15M PRN PO DECREASED GLUCOSE; Start 03/31/19 at 12:30 Glucose (Glutose) 22.5 gm Q15M PRN PO DECREASED GLUCOSE; Start 03/31/19 at 12:30 Dextrose (D50w Syringe) 25 ml Q15M PRN IV DECREASED GLUCOSE; Start 03/31/19 at 12:30 Dextrose (D50w Syringe) 50 ml Q15M PRN IV DECREASED GLUCOSE; Start 03/31/19 at 12:30 Glucagon (Glucagen) 1 mg Q15M PRN IM DECREASED GLUCOSE; Start 03/31/19 at 12:30 Glucose (Glutose) 15 gm Q15M PRN BUCCAL DECREASED GLUCOSE; Start 03/31/19 at 12:30 Atenolol (Tenormin) 100 mg DAILY PO Last administered on 03/31/19at 17:28; Admin Dose 100 MG; Start 03/31/19 at 15:00 Atorvastatin Calcium (Lipitor) 40 mg QHS PO Last administered on 03/31/19at 21:44; Admin Dose 40 MG; Start 03/31/19 at 21:00 Brimonidine Tartrate (Alphagan P 0.15%) 1 drop BID BOTH EYES Last administered on 04/01/19at 08:39; Admin Dose 1 DROP; Start 03/31/19 at 21:00 Hydralazine HCl (Apresoline) 10 mg Q6H PRN IV sbp>160; Start 03/31/19 at 15:00 RUTH ANN HILARIO V. CLINICAL RESEARCH ANALYST Apr 01, 2019 12:31
[2019-04-01] MEDS ORDERED: morphine 2 MG INJ IV PRN (14:30)
--- NOTE | 2019-04-01 15:42 | PREAC ---
Date/Time of Note Date/Time of Note DATE: 04/01/19 TIME: 15:40 Anesthesia Eval and Record Evaluation Time Pre-Procedure Interview DATE: 04/01/19 TIME: 15:40 Age 83 Sex male NPO: 8 hrs Preoperative diagnosis Rt femur fracture Planned procedure Rt IM Nailing Past Medical History Past Medical History: Includes Cardio: HTN, Dyslipidemia Endo: Diabetes Pulm: COPD Surgery & Anesthesia Issues No known issue Meds Anticoagulation: No Beta Markus within 24 hr: Yes Reported Medications Exenatide Microspheres (Bydureon Bcise) 2 Mg/0.85 Ml Auto.injct, 2 MG SQ Q7D 03/31/19 Brimonidine Tartrate* (Brimonidine Tartrate*) 0.15%-10ML Drop Opht, 1 DROP BOTH EYES BID, #1 EA 03/31/19 Metformin Hcl* (Metformin Hcl*) 1,000 Mg Tablet, 1000 MG PO WITH BREAKFAST DINNE, #60 TAB 03/31/19 Losartan Potassium* (Losartan Potassium*) 100 Mg Tablet, 100 MG PO DAILY, TAB 03/31/19 Icosapent Ethyl (VASCEPA) 1 Gm Capsule, 1 GM PO BID, CAP 03/31/19 Atenolol* (Atenolol*) 100 Mg Tablet, 100 MG PO DAILY, #30 TAB 03/31/19 Atorvastatin* (Atorvastatin*) 40 Mg Tablet, 40 MG PO QHS, #30 TAB 03/31/19 Discontinued Reported Medications Ketorolac Tromethamine Oph (Ketorolac Tromethamine Oph) 0.4%-5 Ml Opht Drops, 1 DROP LEFT EYE BID, EA 09/30/18 Brimonidine Tartrate* (Brimonidine Tartrate*) 0.15%-10ML Drop Opht, 1 DROP BOTH EYES BID, #1 EA 09/30/18 Dorzolamide Hcl* (Dorzolamide Hcl*) 10 Ml Drops, 1 DROP BOTH EYES BID, #1 EA 09/30/18 Fish Oil* (Fish Oil*) 1,000 Mg Cap 03/19/11 Losartan Potassium* (Cozaar*) 50 Mg Tablet 03/19/11 Glipizide* (Glucotrol*) 5 Mg Tablet 03/19/11 Metformin* (Glucophage*) 500 Mg Tab 03/19/11 Atorvastatin (Lipitor) 40 Mg Tablet 03/19/11 Current Medications IV Flush (NS 3 ml) 3 ml PER PROTOCOL IV ; Start 03/31/19 at 12:00 Ondansetron HCl (Zofran Inj) 4 mg Q6H PRN IV NAUSEA/VOMITING; Start 03/31/19 at 12:00 Acetaminophen (Tylenol Tab) 650 mg Q6H PRN PO .PAIN 1-3 OR TEMP; Start 03/31/19 at 12:00 Famotidine (Pepcid) 20 mg HS PO Last administered on 03/31/19at 21:43; Admin Dose 20 MG; Start 03/31/19 at 21:00 Diagnostic Test (Pha) (Accu-Chek) 1 ea 02 XX ; Start 04/01/19 at 02:00 Insulin Glargine (Lantus) 12 units DAILY@2000 SC Last administered on 03/31/19at 22:41; Admin Dose 12 UNITS; Start 03/31/19 at 20:00 Insulin Aspart (Novolog Insulin Pen) NOVOLOG *MILD* ALGORITHM WITH MEALS BED TIME SC Last administered on 03/31/19at 22:42; Admin Dose 1 UNIT; Start 03/31/19 at 12:00 Sodium Chloride 1,000 ml @ 80 mls/hr [id number] IV Last administered on 04/01/19at 15:02; Admin Dose 80 MLS/HR; Start 03/31/19 at 12:00 Miscellaneous Information 1 ea NOTE XX ; Start 03/31/19 at 12:30 Glucose (Glutose) 15 gm Q15M PRN PO DECREASED GLUCOSE; Start 03/31/19 at 12:30 Glucose (Glutose) 22.5 gm Q15M PRN PO DECREASED GLUCOSE; Start 03/31/19 at 12:30 Dextrose (D50w Syringe) 25 ml Q15M PRN IV DECREASED GLUCOSE; Start 03/31/19 at 12:30 Dextrose (D50w Syringe) 50 ml Q15M PRN IV DECREASED GLUCOSE; Start 03/31/19 at 12:30 Glucagon (Glucagen) 1 mg Q15M PRN IM DECREASED GLUCOSE; Start 03/31/19 at 12:30 Glucose (Glutose) 15 gm Q15M PRN BUCCAL DECREASED GLUCOSE; Start 03/31/19 at 12:30 Atenolol (Tenormin) 100 mg DAILY PO Last administered on 03/31/19at 17:28; Admin Dose 100 MG; Start 03/31/19 at 15:00 Atorvastatin Calcium (Lipitor) 40 mg QHS PO Last administered on 03/31/19at 21:44; Admin Dose 40 MG; Start 03/31/19 at 21:00 Brimonidine Tartrate (Alphagan P 0.15%) 1 drop BID BOTH EYES Last administered on 04/01/19at 08:39; Admin Dose 1 DROP; Start 03/31/19 at 21:00 Hydralazine HCl (Apresoline) 10 mg Q6H PRN IV sbp>160; Start 03/31/19 at 15:00 Morphine Sulfate (morphine) 2 mg Q3H PRN IV .SEVERE PAIN 7-10; Start 04/01/19 at 14:30 Meds reviewed: Yes Allergies Coded Allergies: No Known Allergy (Verified , 03/31/19) Allergies Reviewed: Yes Labs/Studies Labs Reviewed: Reviewed by anesthesiologist Result Diagram: 04/01/19 0454 04/01/19 0454 Laboratory Tests 04/01/19 04:54 test: N/A Studies: ECG Pre-procedure Exam Last vitals Vital Signs Date Temp Pulse Resp B/P (MAP) Pulse Ox O2 O2 Flow FiO2 Time Delivery Rate 04/01/19 98.2 88 18 124/70 94 Room Air 14:14 (88) 03/31/19 2.0 14:48 Airway: Adequate mouth opening, Adequate thyromental dist Mallampati: Mallampati II Teeth: Normal Lung: Normal Heart: Normal ASA Physical Status ASA physical status: 4 Emergency: None Planned Anesthetic General/MAC: ETT Planned Pain Management Sub-arachniod narcotics, Parenteral pain med Pre-operative Attestations Prior to commencing anesthesia and surgery, the patient was re-evaluated, there was verification of: *The patient's identity *The results of appropriate recent lab work and preoperative vital signs *The above evaluation not changing prior to induction *Anesthetic plan, risk benefits, alternative and complications discussed with patient/family; questions answered; patient/family understands, accepts and wishes to proceed. JENIFER HANSON MD Apr 01, 2019 15:42
--- NOTE | 2019-04-01 15:54 | HPN ---
Date/Time of Note Date/Time of Note DATE: 04/01/19 TIME: 15:54 Interval H&P Admission Note Pt. seen H&P reviewed: No system changes Patient denies fever, chills, shortness of breath, chest pain, nausea/vomiting, constipation, diarrhea, numbness, and tingling. MUSCULOSKELETAL: Right extremity Skin intact. Moderate swelling. Sensation intact to light touch in a sural, saphenous, deep peroneal, superficial peroneal, medial and lateral plantar nerve distribution. Motor is intact, patient able to dorsiflex and plantarflex ankle and extend and flex great toe. Dorsalis Pedis pulse +2, Brisk capillary refill. Compartments are soft. Calves non-tender to palpation bilaterally. JANIE KENNEDY MD Apr 01, 2019 15:54
[2019-04-01] MEDS ORDERED: MIDAZOLAM 1 MG/ML 2 ML INJ ONE (16:01)
[2019-04-01] MEDS ORDERED: FENTAnyl 50 MCG/ML VIAL ONE (16:01)
[2019-04-01] MEDS ORDERED: morphine SULFATE/PF (10 MG/10 ML) INJ ONE (16:01)
[2019-04-01] MEDS ORDERED: PHENYLephrine 10 MG INJ ONE (16:12)
[2019-04-01] MEDS ORDERED: POLYMYXIN/BACITRACIN 1L IRRIG ONE (17:05)
--- NOTE | 2019-04-01 17:23 | CONS ---
DATE OF ADMISSION: 03/31/2019 DATE OF CONSULTATION: TYPE OF CONSULTATION: Nephrology. REASON FOR CONSULTATION: Chronic kidney disease. PHYSICIAN REQUESTING CONSULT: Dr. Sherman. HISTORY OF PRESENT ILLNESS: This is an 83-year-old male with a past medical history of chronic kidne y disease with previous baseline creatinine 1.3 to 1.5 mg/dL, history of diabetes, history of hyperte nsion, history of coronary artery disease who presents to [facility] after a mechan ical fall. The patient fell down and had pain in his right ankle. As a result, he came to the emerg ency room. Upon arrival, the patient had imaging studies including CT scan which showed no acute fin dings. CT scan of cervical spine also showed no fracture. The patient had x-rays of his leg that sh owed a comminuted fracture of both bones of the tibia and fibula. The patient was admitted to [facility] and was evaluated by cardiology and orthopedic surgeon is pending possible surgical correction. In terms of patient's renal history, the patient has underlying CKD with baseline creatinine between 1.3 and 1.5 mg/dL. On admission, the patient's creatinine 1.7 mg/dL. The patient denies any hemopty sis, hematemesis, or hematochezia. PAST MEDICAL HISTORY: As stated above, history of chronic kidney disease stage III, history of diabe fatimah, history of hypertension, history of cochlear implant. FAMILY HISTORY: No family history of kidney disease. SOCIAL HISTORY: Does not drink, smoke, or do drugs. MEDICATIONS: The patient's medications have been reviewed. PAST SURGICAL HISTORY: Has been reviewed with history of retinal surgery, history of left knee joint surgery. REVIEW OF SYSTEMS: A 14-point review of systems conducted. Pertinent positives stated in HPI, other rivera, negative. PHYSICAL EXAMINATION: VITAL SIGNS: Blood pressure is 124/70, respirations 18, pulse 88, temperature 98.2. HEENT: Head is normocephalic. NECK: Supple. HEART: Regular rate. LUNGS: Show diminished breath sounds at the base. ABDOMEN: Soft, nontender to palpation without rebound or guarding. EXTREMITIES: The patient has no clubbing, cyanosis, or edema in right leg. Left leg has noted soft cast. NEUROLOGIC: No focal deficits. LABORATORY DATA: Has been reviewed. IMAGING STUDIES: Have been reviewed. ASSESSMENT AND PLAN: This is an 83-year-old male who presents with: 1. Nonoliguric acute kidney injury on top of chronic kidney disease stage III with a previous baseli ne creatinine around 1.3 to 1.5 mg/dL. Etiology of acute kidney injury is likely secondary to hemody namics. Possible progression of chronic kidney disease. Plan at this point is to do a full evaluati on. We will check UA with microanalysis, check urine electrolytes. Previous renal ultrasound was ob tained in September of 2018 that showed evidence consistent with chronic kidney disease. Would otherw ise continue current treatment plan, supportive care, renally dose all meds. 2. Anemia. Monitor hemoglobin and hematocrit levels. 3. Mineral bone disorder, monitor calcium and phosphorus levels. We will place the patient on phosp hate binders as necessary. 4. Right tibial fibula fracture. The patient is pending open reduction internal fixation. Continue to monitor. Follow up with Ortho. 5. Posterior scalp laceration. The patient is status post washout and closure. Continue to monitor . 6. Diabetes. Continue current insulin regimen. 7. Hypertension. Continue current blood pressure regimen. Holding ARB at this time. 8. Coronary artery disease. Continue medical management. Follow up with Cardiology. Thank you, Dr. Sherman, for this interesting consult. It will be a pleasure to follow patient with yo u throughout the hospital course. Dictated By: KARINA WOLFF DO NR/NTS Conf#: [id number] DID#: [id number] CC: CINDY TAYLOR MD; GRAY SHERMAN MD;*[facility]*
[2019-04-01] MEDS ORDERED: ONDANSETRON 4 MG INJ ONE (19:49)
[2019-04-01] MEDS ORDERED: LIDOCAINE 2% (SDV) 5 ML INJ ONE (19:49)
[2019-04-01] MEDS ORDERED: ROCURONIUM 50 MG INJ ONE (19:49)
[2019-04-01] MEDS ORDERED: ETOMIDATE 20 MG INJ ONE (19:49)
[2019-04-01] MEDS ORDERED: CEFAZOLIN 1 GM INJ ONE (19:49)
--- NOTE | 2019-04-01 20:36 | PAC ---
Date/Time of Note Date/Time of Note DATE: 04/01/19 TIME: 20:36 Post-Anesthesia Notes Post-Anesthesia Note Last documented vital signs Vital Signs Date Temp Pulse Resp B/P (MAP) Pulse Ox O2 O2 Flow FiO2 Time Delivery Rate 04/01/19 98.2 88 18 124/70 94 Room Air 14:14 (88) 03/31/19 2.0 14:48 Activity: WNL Respiratory function: WNL Cardiovascular function: WNL Mental status: Baseline Pain reasonably controlled: Yes Hydration appropriate: Yes Nausea/Vomiting absent: Yes Comments , P:67, Spo2:99%, T:97,9 JENIFER HANSON MD Apr 01, 2019 20:36
[2019-04-01] MEDS ORDERED: LACTATED RINGER'S 1,000 ML IV SCH (20:38)
[2019-04-01] MEDS ORDERED: oxyCODONE 15 MG TAB PO PRN (21:00)
[2019-04-01] MEDS ORDERED: MEPERIDINE 25 MG INJ IV PRN (21:00)
[2019-04-01] MEDS ORDERED: BETHANECHOL 25 MG TAB PO PRN (21:00)
[2019-04-01] MEDS ORDERED: DOCUSATE SODIUM 100 MG CAP PO ONE (21:00)
[2019-04-01] MEDS ORDERED: ALBUTEROL 0.083% (NEB) 2.5 MG/3 ML AMP HHN PRN (21:00)
[2019-04-01] MEDS ORDERED: SENNA/DOCUSATE NA (8.6MG/50MG) TAB PO PRN (21:00)
[2019-04-01] MEDS ORDERED: MAGNESIUM HYDROXIDE 30ML CUP PO PRN (21:00)
[2019-04-01] MEDS ORDERED: HYDROmorphONE 1 MG/5 ML IV SYRINGE IV PRN ×2 (21:00)
[2019-04-01] MEDS ORDERED: DIPHENHYDRAMINE 50 MG INJ IV PRN ×2 (21:00)
[2019-04-01] MEDS ORDERED: ALBUMIN HUMAN 5% 250 ML IV PRN (21:00)
[2019-04-01] MEDS ORDERED: NACL 0.9% 3 ML SYG IV SCH (21:00)
[2019-04-01] MEDS ORDERED: FENTAnyl 50 MCG/ML VIAL IV PRN (21:00)
[2019-04-01] MEDS ORDERED: ONDANSETRON 4 MG INJ IV PRN (21:00)
[2019-04-01] MEDS ORDERED: NA PHOSPHATE/BIPHOS 133 ML ENEMA PR PRN (21:00)
[2019-04-01] MEDS ORDERED: EPHEDrine 25 MG/5 ML SYG IV PRN (21:00)
[2019-04-01] MEDS ORDERED: METOCLOPRAMIDE 10 MG INJ IV PRN (21:00)
[2019-04-01] MEDS ORDERED: BISACODYL 10 MG SUPP PR PRN (21:00)
--- NOTE | 2019-04-01 22:11 | OPR ---
Date/Time of Note Date/Time of Note DATE: 04/01/19 TIME: 21:58 Operative Report Procedure Date: Apr 01, 2019 Preoperative Diagnosis Right distal tibia fracture and fibula fracture Postoperative Diagnosis Right distal tibia fracture and fibula fracture Operation/Procedure Performed Intramedullary nail right distal tibia fracture Surgeon see signature line Block Feeder None Anesthesia Type: general, spinal Estimated Blood Loss: 150 - 200 ml's Transfusion none Specimen none Grafts/Implants Aurora T2 tibial nail 360 x 9.0 mm 2 proximal and 2 distal interlocking screws Complications none Pt Condition Post Procedure: stable Disposition: PACU Procedure Description Indications and consent: This 83-year-old male who fell and sustained a closed right distal third tibia and fibular fracture. He was neurovascular intact on presentation. He presented emergency department. At that time who was examined and placed in the splint. Orthopedics was consulted. Recommended the patient intramedullary fixation. Reviewed the benefits and risks with the patient. Risks include but not limited to completion anesthesia, cardiopulmonary complications, malunion, nonunion, hardware failure, neurovascular injury, need for further surgery, irritation from hardware, infection, and bleeding. He understood these benefits and risks and wished to proceed with surgery. Procedure detail: The patient was brought to the operating room. His transfer the hospital bed to the operating table in supine position. This time is given general anesthetic as well as spinal for pain control. All bony problems well- padded. At this time the right lower extremity splint was removed and it was prepped and draped in normal sterile fashion. A timeout was performed confirming patient's name, medical record number, diagnosis, procedure performed, and laterality procedure. 2 g of Ancef was dosed. This time lower C-arm was used to localize the extent of the fracture. This was marked with a marking pen along the tibia. At this time the knee was flexed and placed over a radiolucent triangle. A 6 cm incision was made just medial to the patella tendon starting at the distal pole of the patella down to the tibial tubercle. Subcutaneous tissue was dissected with Bovie. The joint was encountered. The guidepin was placed in the appropriate starting point on the medial aspect of the lateral tibial spine and at the articular bone junction on the lateral. This is confirmed on fluoroscopy. At this time the pin was driven down at the appropriate angle and depth. This is followed by soft tissue guide and opening reamer. At this time the ball-tipped guidewire with a band was placed down the canal. We will confirmed on both AP and lateral that was inside the canal. The guide wire was placed just proximal to the fracture site. At this time the fracture was reduced on both AP and lateral. It was reduced near anatomically. A ball-tipped guidewire was then guided down to be in the central portion of the plafond. Once this is done the guide wire was measured at about 370. Therefore 360 mm nail was chosen. Began to carefully ream starting with a 9.0 mm reamer. Sequentially reamed to 10.5 mm at this time significant chatter was encountered. Therefore a 9.0 x 360 mm tibial nail was chosen. This was placed over the guidewire and impacted down just proximal to the fracture site. Again the fracture was held in reduction of both AP and lateral planes. The tibial nail was then further introduced using a mallet. Although the fracture remained reduced during reaming. The nail did displaced the fracture as it distracted the fracture site. The reduction was partially regained. It was in slight recurvatum and slight valgus but was within appropriate degrees. The use of blocking screws was not pursued as there is very little room in the tibial canal as the nail filled the canal completely. At this time the distal interlocking screws were placed under perfect circles. 2 distal interlocking screws were placed medial to lateral. This is followed by 2 proximal locking screws one placed lateral medial and one placed in the oblique static hole going from medial to lateral. Of note the bone was extremely soft in the proximal tibia. This time final fluoroscopy was used to evaluate the fracture reduction. The tibia was out to length. The rotation was correct. However there was slight valgus alignment and recurvatum. This was felt to be acceptable as it would not affect the patient's ultimate outcome after the fracture healed. The wounds were closely irrigated. The arthrotomy was closed with interrupted [id number] 0 Vicryl. Subcutaneous tissues were closed with 2-0 Vicryl simple interrupted sutures. Skin was closed with francisco. Wounds were covered with Mepilex dressing. Patient was placed in a short leg sugar tong splint. All counts were correct x2. Disposition: Patient was awoken from anesthesia and transferred to PACU in stable condition. Is neurovascular intact. He will be partial weightbearing on the right lower extremity. He will be on DVT prophylaxis will be SCDs while admitted to the hospital in addition to Lovenox 40 mg daily for 6 weeks. He will be taken out of the splint soon as a fracture boot arrives. He will have antibiotics 24 hours after surgery. JANIE KENNEDY MD Apr 01, 2019 22:11
[2019-04-01] MEDS: CEFAZOLIN 2 GM/50 ML (PMX) 50 ML IVPB SCH (22:44)
[2019-04-01] MEDS: ACETAMINOPHEN 500 MG TAB PO SCH (22:54)
[2019-04-01] MEDS: GABAPENTIN 300 MG CAP PO SCH (22:55)
[2019-04-01] MEDS: FAMOTIDINE 20 MG TAB PO SCH (22:55)
[2019-04-01] MEDS: ATORVASTATIN 40 MG TAB PO SCH (22:55)
[2019-04-01] MEDS: INSULIN GLARGINE [LANTus] (100 UNITS/ML) SYG SC SCH (22:57)
[2019-04-02] MEDS ORDERED: oxyCODONE 15 MG TAB PO PRN
[2019-04-02] MEDS ORDERED: NALOXONE (0.4 MG/ML) INJ IV PRN
[2019-04-02] MEDS ORDERED: HYDROmorphONE 1 MG/ML SYG IV PRN
[2019-04-02] MEDS ORDERED: oxyCODONE 5 MG TAB PO PRN
[2019-04-02] MEDS: oxyCODONE 5 MG TAB PO PRN ×3 (00:10→17:18)
[2019-04-02 00:20] VITALS: BP 115/62; PULSE 112; RESP 18
[2019-04-02 01:20] VITALS: BP 118/69; PULSE 115; RESP 18
[2019-04-02] MEDS: ACCU-CHEK XX SCH (02:00)
[2019-04-02] MEDS: ACETAMINOPHEN 500 MG TAB PO SCH ×3 (06:27→21:35)
[2019-04-02] MEDS: CEFAZOLIN 2 GM/50 ML (PMX) 50 ML IVPB SCH ×2 (06:28→14:25)
[2019-04-02] MEDS: INSULIN ASPART [NOVOLOG] 3 ML PEN SC SCH ×4 (07:50→21:00)
[2019-04-02 08:26] VITALS: BP 120/62; PULSE 105; RESP 18
[2019-04-02] MEDS: DOCUSATE SODIUM 100 MG CAP PO SCH ×2 (08:28→21:36)
[2019-04-02] MEDS: ATENOLOL 100 MG TAB PO SCH (08:28)
[2019-04-02] MEDS: BRIMONIDINE 0.15% 5 ML OPH BOTH EYES SCH ×2 (08:28→21:36)
[2019-04-02] MEDS: ENOXAPARIN 40 MG/0.4 ML SYG SC SCH (08:29)
--- NOTE | 2019-04-02 09:03 | PN ---
DATE: 04/02/2019 SUBJECTIVE: The patient is stable. The patient had surgery yesterday, tolerated well. OBJECTIVE: VITAL SIGNS: Blood pressure is 120/62, respirations 18, pulse 105, temperature 98.2. HEENT: Head is normocephalic. NECK: Supple. HEART: Regular rate. LUNGS: Show diminished breath sounds at the base. ABDOMEN: Soft, nontender to palpation without rebound or guarding. EXTREMITIES: Negative for clubbing, cyanosis, no edema. DERMATOLOGIC: No rashes. MUSCULOSKELETAL: No joint effusion. NEUROLOGIC: No change in exam. MEDICATIONS: Reviewed. LABORATORY DATA: Reviewed. IMAGING STUDIES: Reviewed. ASSESSMENT AND PLAN: 1. Nonoliguric acute kidney injury on top of chronic kidney disease stage III with previous baseline creatinine of 1.3 to 1.5 mg/dL. Etiology of acute kidney injury is secondary to hemodynamics. Noa l function has overall been stable. Continue current treatment plans, supportive care, renally dose all medications. Monitor closely on IV fluids. 2. Anemia. Monitor hemoglobin and hematocrit levels. 3. Mineral bone disorder. Monitor calcium and phosphorus levels. 4. Right tib-fib fracture, status post open reduction internal fixation. Continue to monitor. Foll ow up with orthopedist. Continue pain control and physical therapy. 5. Posterior scalp laceration. Continue to monitor. 6. Diabetes. Continue current insulin regimen. 7. Hypertension. Continue current blood pressure regimen. 8. Coronary artery disease. Continue medical management. Follow up with Cardiology. Dictated By: KARINA WOLFF DO NR/NTS Conf#: [id number] DID#: [id number] CC: CINDY TAYLOR MD; SYED MENEZES MD;*EndCC*
--- NOTE | 2019-04-02 09:27 | PN ---
Date/Time of Note Date/Time of Note DATE: 04/02/19 TIME: 09:20 Assessment/Plan VTE Prophylaxis Risk score (from Nsg)>0 risk: 11 SCD applied (from Nsg): Yes Pharmacological prophylaxis: LMWH Lines/Catheters IV Catheter Type (from Nrsg): Saline Lock Urinary Cath still in place: Yes Reason Cath still needed: other (indicate) Assessment/Plan Hospital Course SUBJECTIVE: POD#1.Having drainage OBJECTIVE: Vital signs-see below PHYSICAL EXAM: Constitutional: Adequately built,not in acute distress. HEENT:Scalp laceration-stapled. Eyes: Extraocular muscles intact. Anicteric sclerae. Pupils equal bilaterally, reactive to light. NECK: Supple without lymph node. CHEST: Clear and good breath sounds equally. No wheezing. No rhonchi. HEART: S1, S2. Regular rate and rhythm. ABDOMEN: Soft/non tender with no rebound tenderness. Bowel sounds were present. EXTREMITIES: RLE bandaged.Drainage circled. No cyanosis, clubbing or edema. NEUROLOGIC: Alert and oriented x3. No focal deficit. No sensory deficit. PSYCHOSOCIAL: No signs of depression. INTEGUMENTARY: No open wounds. ASSESSMENT AND PLAN:83 yo M w/hearing loss,s/p cochlear implant, htn,cad,dm2,ckd here s/p fall found to have scalp lacerations and Right tibial/fibular fracture... Right tibia/fibula fracture -For ORIF today -dvt ppx (per ortho),pain control -site w/oozing blood w/ drainage circled Acute on chronic Anemia -likely post op blood loss/surgical site bleeding -no blood tx needed at present -consider holding prophylactic atc until bleeding stops-per ortho discretion. ANDREAS on CKD stage III Renal fxn Ronn stable -mgmt per nephro -cont.gentle hydration Posterior scalp laceration -Status post washout/closure. -francisco intact/c/d/i DM2 -stable -Basal/Bolus insulin HTN -cont.home meds except ARB Coronary artery disease -Resume asa once cleared from ortho (oozing noted at surgical site). -cont. beta-blockers and statin Dyslipidemia -on statin DVT prophylaxis: Lovenox per ortho Dispo:f/u ortho recs.PT tx Patient was seen in collaboration with Dr. Joshua Result Diagram: 04/02/195 04/02/19 0435 Results 24hrs Laboratory Tests Test 04/01/19 12:41 04/01/19 14:00 04/01/19 22:49 04/02/19 04:35 Bedside Glucose 99 105 Urine Color YELLOW Urine Clarity CLEAR Urine pH 5.0 Urine Specific 1.014 Schaller Urine Ketones NEGATIVE Urine Nitrite NEGATIVE Urine Bilirubin NEGATIVE Urine Urobilinogen NEGATIVE Urine Leukocyte NEGATIVE Esterase Urine Hemoglobin NEGATIVE Urine Random 89.18 Creatinine Urine Random Sodium 142 H Urine Glucose NEGATIVE Urine Total Protein 11.0 White Blood Count 8.9 Red Blood Count 3.13 L Hemoglobin 9.4 L Hematocrit 28.8 L Mean Corpuscular 92.0 Volume Mean Corpuscular 30.0 Hemoglobin Mean Corpuscular 32.6 Hemoglobin Concent Red Cell 12.9 Distribution Width Platelet Count 163 Mean Platelet Volume 10.7 H Immature 0.500 H Granulocytes % Neutrophils % 75.0 Lymphocytes % 8.2 L Monocytes % 15.5 H Eosinophils % 0.5 Basophils % 0.3 Nucleated Red Blood 0.0 Cells % Immature 0.040 H Granulocytes # Neutrophils # 6.7 Lymphocytes # 0.7 L Monocytes # 1.4 H Eosinophils # 0.0 Basophils # 0.0 Nucleated Red Blood 0.0 Cells # Sodium Level 140 Potassium Level 4.7 Chloride Level 107 Carbon Dioxide Level 24 Anion Gap 9 Blood Urea Nitrogen 21 H Creatinine 1.73 H Est Glomerular Filtrat Rate mL/min Glucose Level 118 Calcium Level 8.0 L Phosphorus Level 3.4 Magnesium Level 1.7 Test 04/02/19 08:15 Bedside Glucose 132 Exam/Review of Systems Exam Vitals Vital Signs Date Temp Pulse Resp B/P (MAP) Pulse Ox O2 O2 Flow FiO2 Time Delivery Rate 04/02/19 98.2 105 18 120/62 94 Room Air 08:26 (81) 04/01/19 8.0 22:13 Intake and Output 04/01/19 04/01/19 04/02/19 1515:00 23:00 07:00 IntakeIntake Total 1300 ml 260 ml OutputOutput Total 900 ml 400 ml BalanceBalance -900 ml 900 ml 260 ml Results Results 24hrs Laboratory Tests Test 04/01/19 12:41 04/01/19 14:00 04/01/19 22:49 04/02/19 04:35 Bedside Glucose 99 105 Urine Color YELLOW Urine Clarity CLEAR Urine pH 5.0 Urine Specific 1.014 Schaller Urine Ketones NEGATIVE Urine Nitrite NEGATIVE Urine Bilirubin NEGATIVE Urine Urobilinogen NEGATIVE Urine Leukocyte NEGATIVE Esterase Urine Hemoglobin NEGATIVE Urine Random 89.18 Creatinine Urine Random Sodium 142 H Urine Glucose NEGATIVE Urine Total Protein 11.0 White Blood Count 8.9 Red Blood Count 3.13 L Hemoglobin 9.4 L Hematocrit 28.8 L Mean Corpuscular 92.0 Volume Mean Corpuscular 30.0 Hemoglobin Mean Corpuscular 32.6 Hemoglobin Concent Red Cell 12.9 Distribution Width Platelet Count 163 Mean Platelet Volume 10.7 H Immature 0.500 H Granulocytes % Neutrophils % 75.0 Lymphocytes % 8.2 L Monocytes % 15.5 H Eosinophils % 0.5 Basophils % 0.3 Nucleated Red Blood 0.0 Cells % Immature 0.040 H Granulocytes # Neutrophils # 6.7 Lymphocytes # 0.7 L Monocytes # 1.4 H Eosinophils # 0.0 Basophils # 0.0 Nucleated Red Blood 0.0 Cells # Sodium Level 140 Potassium Level 4.7 Chloride Level 107 Carbon Dioxide Level 24 Anion Gap 9 Blood Urea Nitrogen 21 H Creatinine 1.73 H Est Glomerular Filtrat Rate mL/min Glucose Level 118 Calcium Level 8.0 L Phosphorus Level 3.4 Magnesium Level 1.7 Test 04/02/19 08:15 Bedside Glucose 132 Medications Medication Current Medications IV Flush (NS 3 ml) 3 ml PER PROTOCOL IV ; Start 03/31/19 at 12:00 Ondansetron HCl (Zofran Inj) 4 mg Q6H PRN IV NAUSEA/VOMITING; Start 03/31/19 at 12:00 Acetaminophen (Tylenol Tab) 650 mg Q6H PRN PO .PAIN 1-3 OR TEMP; Start 03/31/19 at 12:00 Famotidine (Pepcid) 20 mg HS PO Last administered on 04/01/19at 22:55; Admin Dose 20 MG; Start 03/31/19 at 21:00 Diagnostic Test (Pha) (Accu-Chek) 1 ea 02 XX ; Start 04/01/19 at 02:00 Insulin Glargine (Lantus) 12 units DAILY@2000 SC Last administered on 04/01/19at 22:57; Admin Dose 12 UNITS; Start 03/31/19 at 20:00 Insulin Aspart (Novolog Insulin Pen) NOVOLOG *MILD* ALGORITHM WITH MEALS BEDTIME SC Last administered on 03/31/19at 22:42; Admin Dose 1 UNIT; Start 03/31/19 at 12:00 Sodium Chloride 1,000 ml @ 80 mls/hr [id number] IV Last administered on 04/01/19at 15:02; Admin Dose 80 MLS/HR; Start 03/31/19 at 12:00 Miscellaneous Information 1 ea NOTE XX ; Start 03/31/19 at 12:30 Glucose (Glutose) 15 gm Q15M PRN PO DECREASED GLUCOSE; Start 03/31/19 at 12:30 Glucose (Glutose) 22.5 gm Q15M PRN PO DECREASED GLUCOSE; Start 03/31/19 at 12:30 Dextrose (D50w Syringe) 25 ml Q15M PRN IV DECREASED GLUCOSE; Start 03/31/19 at 12:30 Dextrose (D50w Syringe) 50 ml Q15M PRN IV DECREASED GLUCOSE; Start 03/31/19 at 12:30 Glucagon (Glucagen) 1 mg Q15M PRN IM DECREASED GLUCOSE; Start 03/31/19 at 12:30 Glucose (Glutose) 15 gm Q15M PRN BUCCAL DECREASED GLUCOSE; Start 03/31/19 at 12:30 Atenolol (Tenormin) 100 mg DAILY PO Last administered on 04/02/19at 08:28; Admin Dose 100 MG; Start 03/31/19 at 15:00 Atorvastatin Calcium (Lipitor) 40 mg QHS PO Last administered on 04/01/19at 22:55; Admin Dose 40 MG; Start 03/31/19 at 21:00 Brimonidine Tartrate (Alphagan P 0.15%) 1 drop BID BOTH EYES Last administered on 04/02/19at 08:28; Admin Dose 1 DROP; Start 03/31/19 at 21:00 Hydralazine HCl (Apresoline) 10 mg Q6H PRN IV sbp>160; Start 03/31/19 at 15:00 Lactated Ringer's 1,000 ml @ 80 mls/hr [id number] IV Last administered on 04/01/19at 22:40; Admin Dose 80 MLS/HR; Start 04/01/19 at 20:38 IV Flush (NS 3 ml) 3 ml PER PROTOCOL IV ; Start 04/01/19 at 21:00 Oxycodone HCl (Roxicodone) 10 mg Q4H PRN PO MORDERATE PAIN 4-6 Last administered on 04/02/19at 06:13; Admin Dose 10 MG; Start 04/02/19 at 00:00 Oxycodone HCl (Roxicodone) 5 mg Q4H PRN PO MILD PAIN 1-3; Start 04/02/19 at 00: 00 Hydromorphone HCl (Dilaudid) 1 mg Q3H PRN IV .BREAKTHROUGH PAIN; Start 04/02/19 at 00:00 Acetaminophen (Tylenol Tab) 1,000 mg Q8 PO Last administered on 04/02/19at 06:27; Admin Dose 1,000 MG; Start 04/01/19 at 22:00 Ondansetron HCl (Zofran Inj) 4 mg Q4H PRN IV NAUSEA/VOMITING; Start 04/02/19 at 21:00 Cefazolin Sodium/ Dextrose 50 ml @ 100 mls/hr Q8H IVPB Last administered on 04/02/19at 06:28; Admin Dose 100 MLS/HR; Start 04/01/19 at 22:00; Stop 04/02/19 at 14:29 Gabapentin (Neurontin) 300 mg QHS PO Last administered on 04/01/19at 22:55; Admin Dose 300 MG; Start 04/01/19 at 21:00 Pantoprazole (Protonix Tab) 40 mg DAILY@06 PO ; Start 04/03/19 at 06:00 Docusate Sodium (Colace) 200 mg BID PO Last administered on 04/02/19at 08:28; Admin Dose 200 MG; Start 04/02/19 at 09:00; Stop 04/05/19 at 08:59 Simethicone (Mylicon) 80 mg TID PRN PO .GAS; Start 04/01/19 at 21:00 Senna/Docusate Sodium (Senokot-S) 2 tab BID PRN PO .CONSTIPATION; Start 04/01/19 at 21:00 Magnesium Hydroxide (Milk Of Mag) 30 ml HS PRN PO .CONSTIPATION; Start 04/01/19 at 21:00 Bisacodyl (Dulcolax Supp) 10 mg DAILY PRN [place] .CONSTIPATION; Start 04/01/19 at 21:00 Sodium Biphosphate/ Sodium Phosphate (Fleet Enema) 133 ml DAILY PRN [place] .CONSTIPATION; Start 04/01/19 at 21:00 Diphenhydramine HCl (Benadryl) 25 mg Q4H PRN IV .ITCHING; Start 04/01/19 at 21:00 Naloxone HCl (Narcan) 0.2 mg Q2M PRN IV .RESP RATE; Start 04/02/19 at 00:00 Bethanechol Chloride (Urecholine) 25 mg URINARY CATH D/C PRN PO UNABLE TO VOID; Start 04/01/19 at 21:00 Enoxaparin Sodium (Lovenox) 40 mg DAILY SC Last administered on 04/02/19at 08:29; Admin Dose 40 MG; Start 04/02/19 at 09:00 Oxycodone HCl (Roxicodone) 15 mg Q4H PRN PO SEVERE PAIN 7-10; Start 04/02/19 at 00:00 RUTH ANN HILARIO NP Apr 02, 2019 09:27
--- NOTE | 2019-04-02 09:47 | CONS ---
Consult Date/Type/Reason Admit Date/Time Mar 31, 2019 at 10:05 Initial Consult Date 03/31/19 Type of Consultation: cv Requesting Provider: RUTH ANN HILARIO NP Date/Time of Note DATE: 04/02/19 TIME: 09:46 Subjective Cardiology follow-up progress note Subjective: Case discussed Patient with no chest pain or pressure. s/p R leg surgery 04/01. With no cardiac or anesthesia complication. Patient leg pain is better now Objective: General: no acute distress HEENT: NC/AT. pupils are equal. round. NECK: NO JVD. no stridor. CV: RRR. systolic murmur; no gallop or rubs. PULM: no wheezing or rhonchi. GI: SOFT, NT, ND, no rebound or guarding Extremity: trace LE edema. Right leg is in a boot. Status post surgery neuro: awake and alert, OX3. Psych: calm and pleasant rectal: deferred Objective Vitals Vital Signs Date Temp Pulse Resp B/P (MAP) Pulse Ox O2 O2 Flow FiO2 Time Delivery Rate 04/02/19 98.2 105 18 120/62 94 Room Air 08:26 (81) 04/01/19 8.0 22:13 Intake and Output 04/01/19 04/01/19 04/02/19 1515:00 23:00 07:00 IntakeIntake Total 1300 ml 260 ml OutputOutput Total 900 ml 400 ml BalanceBalance -900 ml 900 ml 260 ml Results/Medications Result Diagram: 04/02/19 0435 04/02/19 0435 Results 24 hrs Laboratory Tests Test 04/01/19 12:41 04/01/19 14:00 04/01/19 22:49 04/02/19 04:33 Bedside Glucose 99 105 Urine Color YELLOW Urine Clarity CLEAR Urine pH 5.0 Urine Specific 1.014 Velma Urine Ketones NEGATIVE Urine Nitrite NEGATIVE Urine Bilirubin NEGATIVE Urine Urobilinogen NEGATIVE Urine Leukocyte NEGATIVE Esterase Urine Hemoglobin NEGATIVE Urine Random 89.18 Creatinine Urine Random Sodium 142 H Urine Glucose NEGATIVE Urine Total Protein 11.0 Iron Level < 10 L Total Iron Binding Pending Capacity Percent Iron Pending Saturation Test 04/02/19 04:35 04/02/19 06:00 04/02/19 08:15 White Blood Count 8.9 Red Blood Count 3.13 L Hemoglobin 9.4 L Hematocrit 28.8 L Mean Corpuscular 92.0 Volume Mean Corpuscular 30.0 Hemoglobin Mean Corpuscular 32.6 Hemoglobin Concent Red Cell 12.9 Distribution Width Platelet Count 163 Mean Platelet Volume 10.7 H Immature 0.500 H Granulocytes % Neutrophils % 75.0 Lymphocytes % 8.2 L Monocytes % 15.5 H Eosinophils % 0.5 Basophils % 0.3 Nucleated Red Blood 0.0 Cells % Immature 0.040 H Granulocytes # Neutrophils # 6.7 Lymphocytes # 0.7 L Monocytes # 1.4 H Eosinophils # 0.0 Basophils # 0.0 Nucleated Red Blood 0.0 Cells # Sodium Level 140 Potassium Level 4.7 Chloride Level 107 Carbon Dioxide Level 24 Anion Gap 9 Blood Urea Nitrogen 21 H Creatinine 1.73 H Est Glomerular Filtrat Rate mL/min Glucose Level 118 Calcium Level 8.0 L Phosphorus Level 3.4 Magnesium Level 1.7 Urine Color YELLOW Urine Clarity CLEAR Urine pH 5.0 Urine Specific 1.018 Velma Urine Ketones NEGATIVE Urine Nitrite NEGATIVE Urine Bilirubin NEGATIVE Urine Urobilinogen NEGATIVE Urine Leukocyte NEGATIVE Esterase Urine Microscopic 5 RBC Urine Microscopic 3 WBC Urine Hemoglobin 1+ H Urine Glucose NEGATIVE Urine Total Protein NEGATIVE Bedside Glucose 132 Home Meds Reported Medications Exenatide Microspheres (Bydureon Bcise) 2 Mg/0.85 Ml Auto.injct, 2 MG SQ Q7D 03/31/19 Brimonidine Tartrate* (Brimonidine Tartrate*) 0.15%-10ML Drop Opht, 1 DROP BOTH EYES BID, #1 EA 03/31/19 Metformin Hcl* (Metformin Hcl*) 1,000 Mg Tablet, 1000 MG PO WITH BREAKFAST DINNE, #60 TAB 03/31/19 Losartan Potassium* (Losartan Potassium*) 100 Mg Tablet, 100 MG PO DAILY, TAB 03/31/19 Icosapent Ethyl (VASCEPA) 1 Gm Capsule, 1 GM PO BID, CAP 03/31/19 Atenolol* (Atenolol*) 100 Mg Tablet, 100 MG PO DAILY, #30 TAB 03/31/19 Atorvastatin* (Atorvastatin*) 40 Mg Tablet, 40 MG PO QHS, #30 TAB 03/31/19 Discontinued Reported Medications Ketorolac Tromethamine Oph (Ketorolac Tromethamine Oph) 0.4%-5 Ml Opht Drops, 1 DROP LEFT EYE BID, EA 09/30/18 Brimonidine Tartrate* (Brimonidine Tartrate*) 0.15%-10ML Drop Opht, 1 DROP BOTH EYES BID, #1 EA 09/30/18 Dorzolamide Hcl* (Dorzolamide Hcl*) 10 Ml Drops, 1 DROP BOTH EYES BID, #1 EA 09/30/18 Fish Oil* (Fish Oil*) 1,000 Mg Cap 03/19/11 Losartan Potassium* (Cozaar*) 50 Mg Tablet 03/19/11 Glipizide* (Glucotrol*) 5 Mg Tablet 03/19/11 Metformin* (Glucophage*) 500 Mg Tab 03/19/11 Atorvastatin (Lipitor) 40 Mg Tablet 03/19/11 Medications Current Medications IV Flush (NS 3 ml) 3 ml PER PROTOCOL IV ; Start 03/31/19 at 12:00 Ondansetron HCl (Zofran Inj) 4 mg Q6H PRN IV NAUSEA/VOMITING; Start 03/31/19 at 12:00 Acetaminophen (Tylenol Tab) 650 mg Q6H PRN PO .PAIN 1-3 OR TEMP; Start 03/31/19 at 12:00 Famotidine (Pepcid) 20 mg HS PO Last administered on 04/01/19at 22:55; Admin Dose 20 MG; Start 03/31/19 at 21:00 Diagnostic Test (Pha) (Accu-Chek) 1 ea 02 XX ; Start 04/01/19 at 02:00 Insulin Glargine (Lantus) 12 units DAILY@2000 SC Last administered on 04/01/19at 22:57; Admin Dose 12 UNITS; Start 03/31/19 at 20:00 Insulin Aspart (Novolog Insulin Pen) NOVOLOG *MILD* ALGORITHM WITH MEALS BEDTIME SC Last administered on 03/31/19at 22:42; Admin Dose 1 UNIT; Start 03/31/19 at 12:00 Sodium Chloride 1,000 ml @ 80 mls/hr [id number] IV Last administered on 04/01/19at 15:02; Admin Dose 80 MLS/HR; Start 03/31/19 at 12:00 Miscellaneous Information 1 ea NOTE XX ; Start 03/31/19 at 12:30 Glucose (Glutose) 15 gm Q15M PRN PO DECREASED GLUCOSE; Start 03/31/19 at 12:30 Glucose (Glutose) 22.5 gm Q15M PRN PO DECREASED GLUCOSE; Start 03/31/19 at 12:30 Dextrose (D50w Syringe) 25 ml Q15M PRN IV DECREASED GLUCOSE; Start 03/31/19 at 12:30 Dextrose (D50w Syringe) 50 ml Q15M PRN IV DECREASED GLUCOSE; Start 03/31/19 at 12:30 Glucagon (Glucagen) 1 mg Q15M PRN IM DECREASED GLUCOSE; Start 03/31/19 at 12:30 Glucose (Glutose) 15 gm Q15M PRN BUCCAL DECREASED GLUCOSE; Start 03/31/19 at 12:30 Atenolol (Tenormin) 100 mg DAILY PO Last administered on 04/02/19at 08:28; Admin Dose 100 MG; Start 03/31/19 at 15:00 Atorvastatin Calcium (Lipitor) 40 mg QHS PO Last administered on 04/01/19at 22:55; Admin Dose 40 MG; Start 03/31/19 at 21:00 Brimonidine Tartrate (Alphagan P 0.15%) 1 drop BID BOTH EYES Last administered on 04/02/19at 08:28; Admin Dose 1 DROP; Start 03/31/19 at 21:00 Hydralazine HCl (Apresoline) 10 mg Q6H PRN IV sbp>160; Start 03/31/19 at 15:00 IV Flush (NS 3 ml) 3 ml PER PROTOCOL IV ; Start 04/01/19 at 21:00 Oxycodone HCl (Roxicodone) 10 mg Q4H PRN PO MORDERATE PAIN 4-6 Last administered on 04/02/19at 06:13; Admin Dose 10 MG; Start 04/02/19 at 00:00 Oxycodone HCl (Roxicodone) 5 mg Q4H PRN PO MILD PAIN 1-3; Start 04/02/19 at 00:00 Hydromorphone HCl (Dilaudid) 1 mg Q3H PRN IV .BREAKTHROUGH PAIN; Start 04/02/19 at 00:00 Acetaminophen (Tylenol Tab) 1,000 mg Q8 PO Last administered on 04/02/19at 06:27; Admin Dose 1,000 MG; Start 04/01/19 at 22:00 Ondansetron HCl (Zofran Inj) 4 mg Q4H PRN IV NAUSEA/VOMITING; Start 04/02/19 at 21:00 Cefazolin Sodium/ Dextrose 50 ml @ 100 mls/hr Q8H IVPB Last administered on at 06:28; Admin Dose 100 MLS/HR; Start 04/01/19 at 22:00; Stop 04/02/19 at 14:29 Gabapentin (Neurontin) 300 mg QHS PO Last administered on 04/01/19at 22:55; Admin Dose 300 MG; Start 04/01/19 at 21:00 Pantoprazole (Protonix Tab) 40 mg DAILY@06 PO ; Start 04/03/19 at 06:00 Docusate Sodium (Colace) 200 mg BID PO Last administered on 04/02/19at 08:28; Admin Dose 200 MG; Start 04/02/19 at 09:00; Stop 04/05/19 at 08:59 Simethicone (Mylicon) 80 mg TID PRN PO .GAS; Start 04/01/19 at 21:00 Senna/Docusate Sodium (Senokot-S) 2 tab BID PRN PO .CONSTIPATION; Start 04/01/19 at 21:00 Magnesium Hydroxide (Milk Of Mag) 30 ml HS PRN PO .CONSTIPATION; Start 04/01/19 at 21:00 Bisacodyl (Dulcolax Supp) 10 mg DAILY PRN [place] .CONSTIPATION; Start 04/01/19 at 21:00 Sodium Biphosphate/ Sodium Phosphate (Fleet Enema) 133 ml DAILY PRN ID .CONSTIPATION; Start 04/01/19 at 21:00 Diphenhydramine HCl (Benadryl) 25 mg Q4H PRN IV .ITCHING; Start 04/01/19 at 21:00 Naloxone HCl (Narcan) 0.2 mg Q2M PRN IV .RESP RATE; Start 04/02/19 at 00:00 Bethanechol Chloride (Urecholine) 25 mg URINARY CATH D/C PRN PO UNABLE TO VOID; Start 04/01/19 at 21:00 Enoxaparin Sodium (Lovenox) 40 mg DAILY SC Last administered on 04/02/19at 08:29; Admin Dose 40 MG; Start 04/02/19 at 09:00 Oxycodone HCl (Roxicodone) 15 mg Q4H PRN PO SEVERE PAIN 7-10; Start 04/02/19 at 00:00 Assessment/Plan Hospital Course (Demo Recall) Cardiovascular preop evaluation Coronary artery disease with history of PCI Renal insufficiency Hypertension: Under good control Anemia Diabetes Right leg fracture post surgery now Recommendations: I will resume patient home statins Diabetic management as per internal medicine Continue with the beta-lourdes Resume aspirin once okay with Ortho Thank you for his referral. We will continue to follow along with you GRAY BARLOW MD [facility] GRAY BARLOW MD Apr 02, 2019 09:47
[2019-04-02 14:20] VITALS: BP 124/64; PULSE 100; RESP 18
--- NOTE | 2019-04-02 17:30 | PN ---
Date/Time of Note Date/Time of Note DATE: 04/02/19 TIME: 17:24 Assessment/Plan Lines/Catheters IV Catheter Type (from Nrsg): Saline Lock Hasnen in Place (from Nrsg): Yes Assessment/Plan Chief Complaint/Hosp Course POD#1 s/p IMN right tibia fracture -Strict elevation and icing -Change dressing over knee postop day 2 -Post op H&H stable -PT/OT -Joints pain control protocol -DVT prophylaxis: SCD's, Lovenox 40 mg daily x6 weeks -Weight bearing status: Touchdown weight-bear -Hansen DC'd -Discharge planning consult Planned Discharge Date: 2-3 days Discharge to SNF Subjective 24 Hr Interval Summary Patient doing well No acute events overnight Pain is well controlled Exam/Review of Systems Vital Signs Vitals Vital Signs Date Temp Pulse Resp B/P (MAP) Pulse Ox O2 O2 Flow FiO2 Time Delivery Rate 04/02/19 98.0 100 18 124/64 92 Room Air 14:20 (84) 04/01/19 8.0 22:13 Intake and Output 04/01/19 04/01/19 04/02/19 1515:00 23:00 07:00 IntakeIntake Total 1300 ml 260 ml OutputOutput Total 900 ml 400 ml BalanceBalance -900 ml 900 ml 260 ml Exam Free Text/Dictation Right third lower extremity: Dressing: There is drainage under the dressing however the dressing remains dry and intact, no erythema Splint is clean dry and intact Sensation intact to light touch in a sural, saphenous, deep peroneal, superficial peroneal, medial and lateral plantar nerve distribution. Motor is intact, patient able to dorsiflex and plantarflex ankle and extend and flex great toe. Dorsalis Pedis pulse +2, Brisk capillary refill. Compartments are soft. Calves non-tender to palpation bilaterally. Results Result Diagram: 04/02/19 0435 04/02/19 0435 JANIE KENNEDY MD Apr 02, 2019 17:30
[2019-04-02 19:15] VITALS: BP 103/59; PULSE 97; RESP 20
[2019-04-02] MEDS ORDERED: ONDANSETRON 4 MG INJ IV PRN (21:00)
[2019-04-02] MEDS: ATORVASTATIN 40 MG TAB PO SCH (21:35)
[2019-04-02] MEDS: FAMOTIDINE 20 MG TAB PO SCH (21:36)
[2019-04-02] MEDS: GABAPENTIN 300 MG CAP PO SCH (21:36)
[2019-04-02] MEDS: INSULIN GLARGINE [LANTus] (100 UNITS/ML) SYG SC SCH (21:43)
[2019-04-03 01:05] VITALS: BP 104/56; PULSE 90; RESP 18
[2019-04-03] MEDS: ACCU-CHEK XX SCH (02:00)
[2019-04-03] MEDS: PANTOPRAZOLE (EC) 40 MG TAB PO SCH (06:37)
[2019-04-03] MEDS: ACETAMINOPHEN 500 MG TAB PO SCH ×3 (06:37→22:13)
[2019-04-03 07:27] VITALS: BP 118/64; PULSE 97; RESP 19
[2019-04-03] MEDS: INSULIN ASPART [NOVOLOG] 3 ML PEN SC SCH ×4 (07:50→21:00)
--- NOTE | 2019-04-03 08:50 | PN ---
DATE: 04/03/2019 SUBJECTIVE: The patient is stable, no events overnight. OBJECTIVE: VITAL SIGNS: Blood pressure is 118/64, pulse 97, respirations 19, temperature 98.2. HEENT: Head is normocephalic. NECK: Supple. HEART: Regular rate. LUNGS: Show diminished breath sounds at the base. ABDOMEN: Soft, nontender to palpation. No rebound or guarding. EXTREMITIES: Negative for clubbing, cyanosis, no edema in the patient's left leg. Right foot is in dressing, clean, dry, and intact. DERMATOLOGIC: No rashes. MUSCULOSKELETAL: No joint effusion. NEUROLOGIC: No change in exam. MEDICATIONS: Reviewed. LABORATORY DATA: Reviewed. IMAGING STUDIES: Reviewed. ASSESSMENT AND PLAN: 1. Nonoliguric acute kidney injury on top of chronic kidney disease stage III with previous baseline creatinine of 1.3 to 1.5 mg/dL. Etiology of acute kidney injury is secondary to hemodynamics. Felix l function is fluctuating. We will continue to monitor at this time. Continue supportive care, felix lly dose all medications. 2. Anemia. Monitor hemoglobin and hematocrit levels. 3. Mineral bone disorder, monitor calcium and phosphorus levels. 4. Right tib-fib fracture status post open reduction internal fixation. Continue to monitor. Follo w up with orthopedist. 5. Posterior scalp laceration. Continue to monitor. 6. Diabetes. Continue current insulin regimen. 7. Hypertension. Continue current blood pressure regimen. 8. Coronary artery disease. Continue medical management. Follow up with Cardiology. Dictated By: KARINA WOLFF DO NR/NTS Conf#: [id number] DID#: [id number] CC: CINDY TAYLOR MD; SYED MENEZES MD;*EndCC*
[2019-04-03] MEDS: ATENOLOL 100 MG TAB PO SCH (09:00)
--- NOTE | 2019-04-03 09:39 | PN ---
Date/Time of Note Date/Time of Note DATE: 04/03/19 TIME: 09:34 Assessment/Plan VTE Prophylaxis Risk score (from Nsg)>0 risk: 13 SCD applied (from Nsg): Yes Pharmacological prophylaxis: LMWH Lines/Catheters IV Catheter Type (from Nrsg): Saline Lock Urinary Cath still in place: Yes Reason Cath still needed: other (indicate) Assessment/Plan Hospital Course SUBJECTIVE: POD#2. no further oozing from ss. OBJECTIVE: Vital signs-see below PHYSICAL EXAM: Constitutional: Adequately built,not in acute distress. HEENT:Scalp laceration-stapled. Eyes: Extraocular muscles intact. Anicteric sclerae. Pupils equal bilaterally, reactive to light. NECK: Supple without lymph node. CHEST: Clear and good breath sounds equally. No wheezing. No rhonchi. HEART: S1, S2. Regular rate and rhythm. ABDOMEN: Soft/non tender with no rebound tenderness. Bowel sounds were present. EXTREMITIES: RLE bandaged.Drainage circled. No cyanosis, clubbing or edema. NEUROLOGIC: Alert and oriented x3. No focal deficit. No sensory deficit. PSYCHOSOCIAL: No signs of depression. INTEGUMENTARY: No open wounds. ASSESSMENT AND PLAN:83 yo M w/hearing loss,s/p cochlear implant, htn,cad,dm2,ckd here s/p fall found to have scalp lacerations and Right tibial/fibular fracture... Right tibia/fibula fracture -s/p ORIF -dvt ppx,pain control//rehab(note weight bearing status per ortho) Acute on chronic Anemia -likely post op blood loss/surgical site bleeding -stable hh -no blood tx needed at present ANDREAS on CKD stage III -mgmt per nephro -cont.gentle hydration -cont.holding ARB Posterior scalp laceration -Status post washout/closure. -francisco intact/c/d/i DM2 -stable -Basal/Bolus insulin HTN -stable -cont.home meds Coronary artery disease -cont.beta-blockers and statin -Resume aspirin once okay with Ortho Dyslipidemia -on statin DVT prophylaxis: Lovenox per ortho Dispo: DC planning SNF Vs ARU (2-3 days per ortho) Patient was seen in collaboration with Dr. Joshua Result Diagram: 04/03/19 0438 04/03/19 0438 Results 24hrs Laboratory Tests Test 04/02/19 12:43 04/02/19 17:53 04/02/19 21:38 04/03/19 04:38 Bedside Glucose 146 137 129 White Blood Count 5.7 # Red Blood Count 2.87 L Hemoglobin 8.7 L Hematocrit 26.7 L Mean Corpuscular 93.0 Volume Mean Corpuscular 30.3 Hemoglobin Mean Corpuscular 32.6 Hemoglobin Concent Red Cell 12.8 Distribution Width Platelet Count 148 Mean Platelet Volume 10.4 Immature 0.300 Granulocytes % Neutrophils % 68.6 Lymphocytes % 11.1 L Monocytes % 17.1 H Eosinophils % 2.4 Basophils % 0.5 Nucleated Red Blood 0.0 Cells % Immature 0.020 Granulocytes # Neutrophils # 3.9 Lymphocytes # 0.6 L Monocytes # 1.0 H Eosinophils # 0.1 Basophils # 0.0 Nucleated Red Blood 0.0 Cells # Sodium Level 137 Potassium Level 4.6 Chloride Level 104 Carbon Dioxide Level 26 Anion Gap 7 Blood Urea Nitrogen 24 H Creatinine 1.87 H Est Glomerular Filtrat Rate mL/min Glucose Level 111 Calcium Level 7.9 L Test 04/03/19 08:47 Bedside Glucose 109 Exam/Review of Systems Exam Vitals Vital Signs Date Temp Pulse Resp B/P (MAP) Pulse Ox O2 O2 Flow FiO2 Time Delivery Rate 04/03/19 98.2 97 19 118/64 94 07:27 (82) 04/02/19 Room Air 14:20 04/01/19 8.0 22:13 Intake and Output 04/02/19 04/02/19 04/03/19 1515:00 23:00 07:00 IntakeIntake Total 490 ml 120 ml OutputOutput Total 550 ml 400 ml BalanceBalance 490 ml -430 ml -400 ml Results Results 24hrs Laboratory Tests Test 04/02/19 12:43 04/02/19 17:53 04/02/19 21:38 04/03/19 04:38 Bedside Glucose 146 137 129 White Blood Count 5.7 # Red Blood Count 2.87 L Hemoglobin 8.7 L Hematocrit 26.7 L Mean Corpuscular 93.0 Volume Mean Corpuscular 30.3 Hemoglobin Mean Corpuscular 32.6 Hemoglobin Concent Red Cell 12.8 Distribution Width Platelet Count 148 Mean Platelet Volume 10.4 Immature 0.300 Granulocytes % Neutrophils % 68.6 Lymphocytes % 11.1 L Monocytes % 17.1 H Eosinophils % 2.4 Basophils % 0.5 Nucleated Red Blood 0.0 Cells % Immature 0.020 Granulocytes # Neutrophils # 3.9 Lymphocytes # 0.6 L Monocytes # 1.0 H Eosinophils # 0.1 Basophils # 0.0 Nucleated Red Blood 0.0 Cells # Sodium Level 137 Potassium Level 4.6 Chloride Level 104 Carbon Dioxide Level 26 Anion Gap 7 Blood Urea Nitrogen 24 H Creatinine 1.87 H Est Glomerular Filtrat Rate mL/min Glucose Level 111 Calcium Level 7.9 L Test 04/03/19 08:47 Bedside Glucose 109 Medications Medication Current Medications IV Flush (NS 3 ml) 3 ml PER PROTOCOL IV ; Start 03/31/19 at 12:00 Ondansetron HCl (Zofran Inj) 4 mg Q6H PRN IV NAUSEA/VOMITING; Start 03/31/19 at 12:00 Acetaminophen (Tylenol Tab) 650 mg Q6H PRN PO .PAIN 1-3 OR TEMP; Start 03/31/19 at 12:00 Famotidine (Pepcid) 20 mg HS PO Last administered on 04/02/19at 21:36; Admin Dose 20 MG; Start 03/31/19 at 21:00 Diagnostic Test (Pha) (Accu-Chek) 1 ea 02 XX ; Start 04/01/19 at 02:00 Insulin Glargine (Lantus) 12 units DAILY@2000 SC Last administered on 04/02/19at 21:43; Admin Dose 12 UNITS; Start 03/31/19 at 20:00 Insulin Aspart (Novolog Insulin Pen) NOVOLOG *MILD* ALGORITHM WITH MEALS BEDTIME SC Last administered on 04/02/19at 12:47; Admin Dose 1 UNIT; Start 03/31/19 at 12:00 Miscellaneous Information 1 ea NOTE XX ; Start 03/31/19 at 12:30 Glucose (Glutose) 15 gm Q15M PRN PO DECREASED GLUCOSE; Start 03/31/19 at 12:30 Glucose (Glutose) 22.5 gm Q15M PRN PO DECREASED GLUCOSE; Start 03/31/19 at 12:30 Dextrose (D50w Syringe) 25 ml Q15M PRN IV DECREASED GLUCOSE; Start 03/31/19 at 12:30 Dextrose (D50w Syringe) 50 ml Q15M PRN IV DECREASED GLUCOSE; Start 03/31/19 at 12:30 Glucagon (Glucagen) 1 mg Q15M PRN IM DECREASED GLUCOSE; Start 03/31/19 at 12:30 Glucose (Glutose) 15 gm Q15M PRN BUCCAL DECREASED GLUCOSE; Start 03/31/19 at 12:30 Atenolol (Tenormin) 100 mg DAILY PO Last administered on 04/02/19 08:28; Admin Dose 100 MG; Start 03/31/19 at 15:00 Atorvastatin Calcium (Lipitor) 40 mg QHS PO Last administered on 04/02/19 21:35; Admin Dose 40 MG; Start 03/31/19 at 21:00 Brimonidine Tartrate (Alphagan P 0.15%) 1 drop BID BOTH EYES Last administered on 04/02/19 21:36; Admin Dose 1 DROP; Start 03/31/19 at 21:00 Hydralazine HCl (Apresoline) 10 mg Q6H PRN IV sbp>160; Start 03/31/19 at 15:00 IV Flush (NS 3 ml) 3 ml PER PROTOCOL IV ; Start 04/01/19 at 21:00 Oxycodone HCl (Roxicodone) 10 mg Q4H PRN PO MORDERATE PAIN 4-6 Last administered on 04/02/19 17:18; Admin Dose 10 MG; Start 04/02/19 at 00:00 Oxycodone HCl (Roxicodone) 5 mg Q4H PRN PO MILD PAIN 1-3; Start 04/02/19 at 00:00 Hydromorphone HCl (Dilaudid) 1 mg Q3H PRN IV .BREAKTHROUGH PAIN; Start 04/02/19 at 00:00 Acetaminophen (Tylenol Tab) 1,000 mg Q8 PO Last administered on 04/03/19 06:37; Admin Dose 1,000 MG; Start 04/01/19 at 22:00 Ondansetron HCl (Zofran Inj) 4 mg Q4H PRN IV NAUSEA/VOMITING; Start 04/02/19 at 21:00 Gabapentin (Neurontin) 300 mg QHS PO Last administered on 04/02/19 21:36; Admin Dose 300 MG; Start 04/01/19 at 21:00 Pantoprazole (Protonix Tab) 40 mg DAILY@06 PO Last administered on 04/03/19 06:37; Admin Dose 40 MG; Start 04/03/19 at 06:00 Docusate Sodium (Colace) 200 mg BID PO Last administered on 04/02/19at 21:36; Admin Dose 200 MG; Start 04/02/19 at 09:00; Stop 04/05/19 at 08:59 Simethicone (Mylicon) 80 mg TID PRN PO .GAS; Start 04/01/19 at 21:00 Senna/Docusate Sodium (Senokot-S) 2 tab BID PRN PO .CONSTIPATION; Start 04/01/19 at 21:00 Magnesium Hydroxide (Milk Of Mag) 30 ml HS PRN PO .CONSTIPATION; Start 04/01/19 at 21:00 Bisacodyl (Dulcolax Supp) 10 mg DAILY PRN [place] .CONSTIPATION; Start 04/01/19 at 21:00 Sodium Biphosphate/ Sodium Phosphate (Fleet Enema) 133 ml DAILY PRN [place] .CONSTIPATION; Start 04/01/19 at 21:00 Diphenhydramine HCl (Benadryl) 25 mg Q4H PRN IV .ITCHING; Start 04/01/19 at 21:00 Naloxone HCl (Narcan) 0.2 mg Q2M PRN IV .RESP RATE; Start 04/02/19 at 00:00 Bethanechol Chloride (Urecholine) 25 mg URINARY CATH D/C PRN PO UNABLE TO VOID; Start 04/01/19 at 21:00 Enoxaparin Sodium (Lovenox) 40 mg DAILY SC Last administered on 04/02/19at 08:29; Admin Dose 40 MG; Start 04/02/19 at 09:00 Oxycodone HCl (Roxicodone) 15 mg Q4H PRN PO SEVERE PAIN 7-10; Start 04/02/19 at 00:00 RUTH ANN HILARIO NP Apr 03, 2019 09:38
[2019-04-03] MEDS: DOCUSATE SODIUM 100 MG CAP PO SCH ×2 (09:56→20:25)
[2019-04-03] MEDS: BRIMONIDINE 0.15% 5 ML OPH BOTH EYES SCH ×2 (09:58→20:25)
[2019-04-03] MEDS: ENOXAPARIN 40 MG/0.4 ML SYG SC SCH (10:00)
--- NOTE | 2019-04-03 15:46 | CONS ---
Consult Date/Type/Reason Admit Date/Time Mar 31, 2019 at 10:05 Initial Consult Date 03/31/19 Type of Consultation: cv Requesting Provider: RUTH ANN HILARIO NP Date/Time of Note DATE: 04/03/19 TIME: 15:44 Subjective Cardiology follow-up progress note Subjective: Case discussed and family Patient with no chest pain or pressure. s/p R leg surgery 04/01. With no cardiac or anesthesia complication. Patient leg pain is better now Objective: General: no acute distress HEENT: NC/AT. pupils are equal. round. NECK: NO JVD. no stridor. CV: RRR. systolic murmur; no gallop or rubs. PULM: no wheezing or rhonchi. GI: SOFT, NT, ND, no rebound or guarding Extremity: trace LE edema. Right leg is in a boot. Status post surgery neuro: awake and alert, OX3. Psych: calm and pleasant rectal: deferred echo Normal left ventricular systolic function. Normal left ventricular cavity size. Moderate hypertrophy of the basal septum. No obstruction with and without valsalva. Ejection fraction is visually estimated at 65 %. Tissue Doppler/Mitral Doppler indices are within normal limits. Aortic sclerosis without significant stenosis. Mild aortic valve regurgitation. The estimated Peak RVSP is 20 mmHg. Normal size and normal respiratory collapse consistent with normal right atrial pressure. Objective Vitals Vital Signs Date Temp Pulse Resp B/P (MAP) Pulse Ox O2 O2 Flow FiO2 Time Delivery Rate 04/03/19 98.2 97 19 118/64 94 07:27 (82) 04/02/19 Room Air 14:20 04/01/19 8.0 22:13 Intake and Output 04/02/19 04/02/19 04/03/19 1515:00 23:00 07:00 IntakeIntake Total 490 ml 120 ml OutputOutput Total 550 ml 400 ml BalanceBalance 490 ml -430 ml -400 ml Results/Medications Result Diagram: 04/03/19 0438 04/03/19 0438 Results 24 hrs Laboratory Tests Test 04/02/19 17:53 04/02/19 21:38 04/03/19 04:38 04/03/19 08:47 Bedside Glucose 137 129 109 White Blood Count 5.7 # Red Blood Count 2.87 L Hemoglobin 8.7 L Hematocrit 26.7 L Mean Corpuscular 93.0 Volume Mean Corpuscular 30.3 Hemoglobin Mean Corpuscular 32.6 Hemoglobin Concent Red Cell 12.8 Distribution Width Platelet Count 148 Mean Platelet Volume 10.4 Immature 0.300 Granulocytes % Neutrophils % 68.6 Lymphocytes % 11.1 L Monocytes % 17.1 H Eosinophils % 2.4 Basophils % 0.5 Nucleated Red Blood 0.0 Cells % Immature 0.020 Granulocytes # Neutrophils # 3.9 Lymphocytes # 0.6 L Monocytes # 1.0 H Eosinophils # 0.1 Basophils # 0.0 Nucleated Red Blood 0.0 Cells # Sodium Level 137 Potassium Level 4.6 Chloride Level 104 Carbon Dioxide Level 26 Anion Gap 7 Blood Urea Nitrogen 24 H Creatinine 1.87 H Est Glomerular Filtrat Rate mL/min Glucose Level 111 Calcium Level 7.9 L Test 04/03/19 12:47 Bedside Glucose 140 Home Meds Reported Medications Exenatide Microspheres (Bydureon Bcise) 2 Mg/0.85 Ml Auto.injct, 2 MG SQ Q7D 03/31/19 Brimonidine Tartrate* (Brimonidine Tartrate*) 0.15%-10ML Drop Opht, 1 DROP BOTH EYES BID, #1 EA 03/31/19 Metformin Hcl* (Metformin Hcl*) 1,000 Mg Tablet, 1000 MG PO WITH BREAKFAST DINNE, #60 TAB 03/31/19 Losartan Potassium* (Losartan Potassium*) 100 Mg Tablet, 100 MG PO DAILY, TAB 03/31/19 Icosapent Ethyl (VASCEPA) 1 Gm Capsule, 1 GM PO BID, CAP 03/31/19 Atenolol* (Atenolol*) 100 Mg Tablet, 100 MG PO DAILY, #30 TAB 03/31/19 Atorvastatin* (Atorvastatin*) 40 Mg Tablet, 40 MG PO QHS, #30 TAB 03/31/19 Discontinued Reported Medications Ketorolac Tromethamine Oph (Ketorolac Tromethamine Oph) 0.4%-5 Ml Opht Drops, 1 DROP LEFT EYE BID, EA 09/30/18 Brimonidine Tartrate* (Brimonidine Tartrate*) 0.15%-10ML Drop Opht, 1 DROP BOTH EYES BID, #1 EA 09/30/18 Dorzolamide Hcl* (Dorzolamide Hcl*) 10 Ml Drops, 1 DROP BOTH EYES BID, #1 EA 09/30/18 Fish Oil* (Fish Oil*) 1,000 Mg Cap 03/19/11 Losartan Potassium* (Cozaar*) 50 Mg Tablet 03/19/11 Glipizide* (Glucotrol*) 5 Mg Tablet 03/19/11 Metformin* (Glucophage*) 500 Mg Tab 03/19/11 Atorvastatin (Lipitor) 40 Mg Tablet 03/19/11 Medications Current Medications IV Flush (NS 3 ml) 3 ml PER PROTOCOL IV ; Start 03/31/19 at 12:00 Ondansetron HCl (Zofran Inj) 4 mg Q6H PRN IV NAUSEA/VOMITING; Start 03/31/19 at 12:00 Acetaminophen (Tylenol Tab) 650 mg Q6H PRN PO .PAIN 1-3 OR TEMP; Start 03/31/19 at 12:00 Famotidine (Pepcid) 20 mg HS PO Last administered on 04/02/19at 21:36; Admin Dose 20 MG; Start 03/31/19 at 21:00 Diagnostic Test (Pha) (Accu-Chek) 1 ea 02 XX ; Start 04/01/19 at 02:00 Insulin Glargine (Lantus) 12 units DAILY@2000 SC Last administered on 04/02/19at 21:43; Admin Dose 12 UNITS; Start 03/31/19 at 20:00 Insulin Aspart (Novolog Insulin Pen) NOVOLOG *MILD* ALGORITHM WITH MEALS BEDTIME SC Last administered on 04/02/19at 12:47; Admin Dose 1 UNIT; Start 03/31/19 at 12:00 Miscellaneous Information 1 ea NOTE XX ; Start 03/31/19 at 12:30 Glucose (Glutose) 15 gm Q15M PRN PO DECREASED GLUCOSE; Start 03/31/19 at 12:30 Glucose (Glutose) 22.5 gm Q15M PRN PO DECREASED GLUCOSE; Start 03/31/19 at 12:30 Dextrose (D50w Syringe) 25 ml Q15M PRN IV DECREASED GLUCOSE; Start 03/31/19 at 12:30 Dextrose (D50w Syringe) 50 ml Q15M PRN IV DECREASED GLUCOSE; Start 03/31/19 at 12:30 Glucagon (Glucagen) 1 mg Q15M PRN IM DECREASED GLUCOSE; Start 03/31/19 at 12:30 Glucose (Glutose) 15 gm Q15M PRN BUCCAL DECREASED GLUCOSE; Start 03/31/19 at 12:30 Atenolol (Tenormin) 100 mg DAILY PO Last administered on 04/02/19 08:28; Admin Dose 100 MG; Start 03/31/19 at 15:00 Atorvastatin Calcium (Lipitor) 40 mg QHS PO Last administered on 04/02/19 21:35; Admin Dose 40 MG; Start 03/31/19 at 21:00 Brimonidine Tartrate (Alphagan P 0.15%) 1 drop BID BOTH EYES Last administered on 04/03/19 09:58; Admin Dose 1 DROP; Start 03/31/19 at 21:00 Hydralazine HCl (Apresoline) 10 mg Q6H PRN IV sbp>160; Start 03/31/19 at 15:00 IV Flush (NS 3 ml) 3 ml PER PROTOCOL IV ; Start 04/01/19 at 21:00 Oxycodone HCl (Roxicodone) 10 mg Q4H PRN PO MORDERATE PAIN 4-6 Last administered on 04/02/19 17:18; Admin Dose 10 MG; Start 04/02/19 at 00:00 Oxycodone HCl (Roxicodone) 5 mg Q4H PRN PO MILD PAIN 1-3; Start 04/02/19 at 00:00 Hydromorphone HCl (Dilaudid) 1 mg Q3H PRN IV .BREAKTHROUGH PAIN; Start 04/02/19 at 00:00 Acetaminophen (Tylenol Tab) 1,000 mg Q8 PO Last administered on 04/03/19at 14:55; Admin Dose 1,000 MG; Start 04/01/19 at 22:00 Ondansetron HCl (Zofran Inj) 4 mg Q4H PRN IV NAUSEA/VOMITING; Start 04/02/19 at 21:00 Gabapentin (Neurontin) 300 mg QHS PO Last administered on 04/02/19 21:36; Admin Dose 300 MG; Start 04/01/19 at 21:00 Pantoprazole (Protonix Tab) 40 mg DAILY@06 PO Last administered on 04/03/19 06:37; Admin Dose 40 MG; Start 04/03/19 at 06:00 Docusate Sodium (Colace) 200 mg BID PO Last administered on 6/29/19at 09:56; Admin Dose 200 MG; Start 04/02/19 at 09:00; Stop 04/05/19 at 08:59 Simethicone (Mylicon) 80 mg TID PRN PO .GAS; Start 04/01/19 at 21:00 Senna/Docusate Sodium (Senokot-S) 2 tab BID PRN PO .CONSTIPATION Last administered on 04/03/19at 11:15; Admin Dose 2 TAB; Start 04/01/19 at 21:00 Magnesium Hydroxide (Milk Of Mag) 30 ml HS PRN PO .CONSTIPATION; Start 04/01/19 at 21:00 Bisacodyl (Dulcolax Supp) 10 mg DAILY PRN [place] .CONSTIPATION; Start 04/01/19 at 21:00 Sodium Biphosphate/ Sodium Phosphate (Fleet Enema) 133 ml DAILY PRN [place] .CONSTIPATION; Start 04/01/19 at 21:00 Diphenhydramine HCl (Benadryl) 25 mg Q4H PRN IV .ITCHING; Start 04/01/19 at 21:00 Naloxone HCl (Narcan) 0.2 mg Q2M PRN IV .RESP RATE; Start 04/02/19 at 00:00 Bethanechol Chloride (Urecholine) 25 mg URINARY CATH D/C PRN PO UNABLE TO VOID; Start 04/01/19 at 21:00 Enoxaparin Sodium (Lovenox) 40 mg DAILY SC Last administered on 04/03/19at 10:00; Admin Dose 40 MG; Start 04/02/19 at 09:00 Oxycodone HCl (Roxicodone) 15 mg Q4H PRN PO SEVERE PAIN 7-10; Start 04/02/19 at 00:00 Assessment/Plan Hospital Course (Demo Recall) Cardiovascular preop evaluation Coronary artery disease with history of PCI Renal insufficiency Hypertension: Under good control Anemia Diabetes Right leg fracture post surgery now Recommendations: I will resume patient home statins Diabetic management as per internal medicine Continue with the beta-lourdes Resume aspirin once okay with Ortho Thank you for his referral. We will continue to follow along with you GRAY BARLOW MD [facility] GRAY BARLOW MD Apr 03, 2019 15:46
[2019-04-03 17:28] VITALS: BP 120/64; PULSE 90; RESP 19
[2019-04-03 20:21] VITALS: BP 100/60; PULSE 102; RESP 17
[2019-04-03] MEDS: FAMOTIDINE 20 MG TAB PO SCH (20:25)
[2019-04-03] MEDS: ATORVASTATIN 40 MG TAB PO SCH (20:25)
[2019-04-03] MEDS: GABAPENTIN 300 MG CAP PO SCH (20:25)
[2019-04-03] MEDS: INSULIN GLARGINE [LANTus] (100 UNITS/ML) SYG SC SCH (20:41)
[2019-04-04 02:00] VITALS: BP 111/60; PULSE 90; RESP 18
[2019-04-04] MEDS: ACCU-CHEK XX SCH (02:00)
[2019-04-04] MEDS: ACETAMINOPHEN 500 MG TAB PO SCH ×2 (06:39→13:34)
[2019-04-04] MEDS: PANTOPRAZOLE (EC) 40 MG TAB PO SCH (06:39)
[2019-04-04 07:16] VITALS: BP 134/75; PULSE 91; RESP 18
[2019-04-04] MEDS: INSULIN ASPART [NOVOLOG] 3 ML PEN SC SCH ×2 (08:58→12:59)
[2019-04-04] MEDS ORDERED: ASPIRIN (EC) 81 MG TAB PO SCH (09:00)
[2019-04-04] MEDS ORDERED: ENOXAPARIN 30 MG/0.3 ML SYG SC SCH (09:00)
[2019-04-04] MEDS: DOCUSATE SODIUM 100 MG CAP PO SCH (09:00)
[2019-04-04] MEDS: ATENOLOL 100 MG TAB PO SCH (09:02)
[2019-04-04] MEDS: BRIMONIDINE 0.15% 5 ML OPH BOTH EYES SCH (09:04)
--- NOTE | 2019-04-04 09:45 | PN ---
Date/Time of Note Date/Time of Note DATE: 04/04/19 TIME: 09:41 Assessment/Plan Lines/Catheters IV Catheter Type (from Nrsg): Saline Lock Hansen in Place (from Nrsg): No Assessment/Plan Chief Complaint/Hosp Course POD#3 s/p IMN right tibia fracture. Patient will need a tall fracture boot. This was ordered. -Strict elevation and icing -Post op H&H stable -PT/OT -Joints pain control protocol -DVT prophylaxis: SCD's, Lovenox 40 mg daily x6 weeks -Weight bearing status: Touchdown weight-bear -Hansen DC'd -Discharge planning consult Planned Discharge Date: 2-3 days Discharge to ARU Subjective 24 Hr Interval Summary Patient doing well No acute events overnight Pain is well controlled Exam/Review of Systems Vital Signs Vitals Vital Signs Date Temp Pulse Resp B/P (MAP) Pulse Ox O2 O2 Flow FiO2 Time Delivery Rate 04/04/19 98.3 91 18 134/75 98 Room Air 07:16 (94) 04/01/19 8.0 22:13 Intake and Output 04/03/19 04/03/19 04/04/19 1515:00 23:00 07:00 IntakeIntake Total 600 ml 440 ml 240 ml OutputOutput Total 475 ml 640 ml 800 ml BalanceBalance 125 ml -200 ml -560 ml Exam Free Text/Dictation Right lower extremity: Dressing: Anterior knee dressing is saturated. There is no active drainage. Incision is intact and clean. Remainder dressings are clean, dry, and intact, no erythema. Splint is clean dry and intact Sensation intact to light touch in a sural, saphenous, deep peroneal, superficial peroneal, medial and lateral plantar nerve distribution. Motor is intact, patient able extend and flex great toe. Dorsalis Pedis pulse +2, Brisk capillary refill. Compartments are soft. Calves non-tender to palpation bilaterally. Results Result Diagram: 04/04/19 0430 04/04/19 043 JANIE KENNEDY MD Apr 04, 2019 09:45
--- NOTE | 2019-04-04 10:34 | PDOCDIS ---
Discharge Instructions CONDITION [id number] Patient Condition: [id number] Stable HOME CARE INSTRUCTIONS: [id number] Your diet recommendation is: [id number] carb controlled/low chol diet ACTIVITY: [id number] Activity Restrictions: [id number] Slowly Increase Activity Rest between Activity Avoid heavy lifting Avoid Heavy Housework [id number] Bathing Restrictions: [id number] Shower FOLLOW UP/APPOINTMENTS Follow-up Plan follow up in 1 week dc to RUTH ANN REYNOSO NP Apr 04, 2019 10:34
--- NOTE | 2019-04-04 10:35 | PN ---
DATE: 04/04/2019 SUBJECTIVE: The patient is stable, no events overnight. OBJECTIVE: VITAL SIGNS: Blood pressure is 134/75, pulse 91, respiration 18, temperature 98.3. HEENT: Head is normocephalic. NECK: Supple. HEART: Regular rate. LUNGS: Show diminished breath sounds at the base. ABDOMEN: Soft, nontender to palpation without rebound or guarding. EXTREMITIES: Negative for clubbing, cyanosis, no edema. DERMATOLOGIC: No rashes. MUSCULOSKELETAL: No joint effusions. NEUROLOGIC: No change in exam. MEDICATIONS: The patient's medications have been reviewed. LABORATORY DATA: Has been reviewed. IMAGING STUDIES: Have been reviewed. ASSESSMENT AND PLAN: 1. Nonoliguric acute kidney injury on top of chronic kidney disease stage III with a previous baseli ne creatinine 1.3 to 1.5 mg/dL. Etiology of ANDREAS is secondary to hemodynamics. Renal function slowly improving. Continue current treatment plans, supportive care, renally dose all medication. 2. Anemia. Monitor hemoglobin and hematocrit levels. 3. Mineral bone disorder. Monitor calcium and phosphorus levels. 4. Right tib-fib fracture status post open reduction internal fixation. Continue physical therapy. Continue pain control. 5. Diabetes. Continue current insulin regimen. 6. Hypertension. Continue current blood pressure regimen. 7. Coronary artery disease. Continue medical management. Follow up with cardiology. Dictated By: KARINA WOLFF DO NR/NTS Conf#: [id number] DID#: [id number] CC: CINDY TAYLOR MD; SYED MENEZES MD;*EndCC*
--- NOTE | 2019-04-04 10:42 | DS ---
Date/Time of Note Date/Time of Note DATE: 04/04/19 TIME: 10:41 Discharge Summary Admission/Discharge Info Admit Date/Time Mar 31, 2019 at 10:05 Discharge Date/Time Discharge Diagnosis Right tibia/fibula fracture. s/p Intramedullary nail right distal tibia fracture on 04/01/2019 Acute on chronic Anemialood tx needed at presen ANDREAS on CKD stage III Posterior scalp laceration DM2 HTN Coronary artery disease Dyslipidemia Patient Condition: Stable Consults Procedures Intramedullary nail right distal tibia fracture on 04/01/2019 Hx of Present Illness This is a 83-year-old male with a history of hypertension, hearing impairment, status post left cochlear implant, coronary artery disease, diabetes, gait imbalance/dizziness who also uses a walker at home, brought into the emergency room with scalp bleed, right lower extremity pain after fall. Patient was noted with a scalp laceration and right tibia/fibular fracture. At my encounter with the patient, he denied any chest pain, palpitation, shortness of breath, nausea, vomiting, abdominal pain, loss of consciousness, dizziness, headache, diarrhea, fever, chills, numbness, tingling or other constitutional symptoms. Labs showed hemoglobin 11.9, hematocrit 37.5, BUN [address] brain negative for acute bleed or infarct. Right ankle x-ray showed Comminuted angulated and displaced fracture of the distal tibial diaphysis and distal fibular shaft. Orthopedic consultation was called from the emergency room with plan for surgical intervention tomorrow. Patient's vital signs able except for blood pressure 163/95. Scalp laceration was closed with francisco in the emergency room and a splint was applied to right lower extremity fracture. Hospital Course :83 yo M w/hearing loss,s/p cochlear implant, htn,cad,dm2,ckd here s/p fall foun d to have scalp lacerations and Right tibial/fibular fracture... Scalp laceration was stapled in the emergency room after washout. Patient underwent Intramedullary nail right distal tibia fracture on 04/01/2019 with . Postoperative course was uneventful. Patient had mild oozing from surgical site which was controlled. Hemoglobin remained stable without need for blood transfusion. He was also noted with acute kidney injury on CKD stage III for which he was being followed by behavioral analyst. Losartan was put on hold. He was given gentle hydration with kidney function stabilized at baseline. Patient was continued on anticoagulation with Lovenox which was recommended for up to 6 weeks per orthopedics. Patient was continued on home medication for underlying comorbidities. He was cleared from orthopedic standpoint to resume back on aspirin for underlying coronary artery disease with PCI. Patient was given insulin for underlying diabetes. He was seen by PT/OT who recommended further rehabilitation at acute rehabilitation unit and patient was accepted on 04/04/2019. Approximately 60 m spent on coordinating the discharge on this patient. Patient was seen in collaboration with [facility] Reported Medications Exenatide Microspheres (Bydureon Bcise) 2 Mg/0.85 Ml Auto.injct, 2 MG SQ Q7D 03/31/19 Brimonidine Tartrate* (Brimonidine Tartrate*) 0.15%-10ML Drop Opht, 1 DROP BOTH EYES BID, #1 EA 03/31/19 Metformin Hcl* (Metformin Hcl*) 1,000 Mg Tablet, 1000 MG PO WITH BREAKFAST DINNE, #60 TAB 03/31/19 Losartan Potassium* (Losartan Potassium*) 100 Mg Tablet, 100 MG PO DAILY, TAB 03/31/19 Icosapent Ethyl (VASCEPA) 1 Gm Capsule, 1 GM PO BID, CAP 03/31/19 Atenolol* (Atenolol*) 100 Mg Tablet, 100 MG PO DAILY, #30 TAB 03/31/19 Atorvastatin* (Atorvastatin*) 40 Mg Tablet, 40 MG PO QHS, #30 TAB 03/31/19 Discontinued Reported Medications Ketorolac Tromethamine Oph (Ketorolac Tromethamine Oph) 0.4%-5 Ml Opht Drops, 1 DROP LEFT EYE BID, EA 09/30/18 Brimonidine Tartrate* (Brimonidine Tartrate*) 0.15%-10ML Drop Opht, 1 DROP BOTH EYES BID, #1 EA 09/30/18 Dorzolamide Hcl* (Dorzolamide Hcl*) 10 Ml Drops, 1 DROP BOTH EYES BID, #1 EA 09/30/18 Fish Oil* (Fish Oil*) 1,000 Mg Cap 03/19/11 Losartan Potassium* (Cozaar*) 50 Mg Tablet 03/19/11 Glipizide* (Glucotrol*) 5 Mg Tablet 03/19/11 Metformin* (Glucophage*) 500 Mg Tab 03/19/11 Atorvastatin (Lipitor) 40 Mg Tablet 03/19/11 Follow-up Plan follow up in 1 week dc to [facility] Primary Care Provider Vinicio Alvarado MD Pending Labs Laboratory Tests Test 04/03/19 12:47 04/03/19 17:57 04/03/19 20:30 04/04/19 02:11 Bedside 140 122 143 113 Glucose mg/dL (70-220) mg/dL (70-220) mg/dL (70-220) mg/dL (70-220) Test 04/04/19 04:30 04/04/19 08:57 White Blood 6.1 Count 10^3/ul (4.8-10 .8) Red Blood 2.82 Count 10^6/ul (4.70-6 .10) Hemoglobin 8.5 g/dl (14.0-18.0 ) Hematocrit 25.9 % (42.0-52.0) Mean 91.8 Corpuscular fl (82.0-101.0) Volume Mean 30.1 Corpuscular pg (29.0-33.0) Hemoglobin Mean 32.8 Corpuscular g/dl (32.0-37.0 Hemoglobin Conc ) ent Red Cell 12.6 Distribution % (11.5-14.5) Width Platelet Count 172 10^3/UL (140-41 5) Mean Platelet 10.4 Volume fl (7.4-10.4) Immature 0.300 Granulocytes % % (0.001-0.429) Neutrophils % 64.1 % (39.0-77.0) Lymphocytes % 15.2 % (15.0-51.0) Monocytes % 16.0 % (0.0-11.0) Eosinophils % 4.1 % (0.0-7.0) Basophils % 0.3 % (0.0-2.0) Nucleated Red 0.0 Blood Cells % /100WBC (0.0-0. 0) Immature 0.020 Granulocytes # 10^3/ul (0.0-0. 031) Neutrophils # 3.9 10^3/ul (1.6-7. 5) Lymphocytes # 0.9 10^3/ul (0.8-2. 9) Monocytes # 1.0 10^3/ul (0.3-0. 9) Eosinophils # 0.3 10^3/ul (0.0-0. 5) Basophils # 0.0 10^3/ul (0.0-0. 1) Nucleated Red 0.0 Blood Cells # 10^3/ul (0.0-0. 0) Sodium Level 138 mmol/L (135-144 ) Potassium 4.1 Level mmol/L (3.5-5.1 ) Chloride Level 106 mmol/L (97-110) Carbon Dioxide 26 Level mmol/L (21-31) Anion Gap 6 (5-13) Blood Urea 23 mg/dl (7-20) Nitrogen Creatinine 1.64 mg/dl (0.61-1.2 4) Est Glomerular mL/min (>60) Filtrat Rate mL/min Glucose Level 93 mg/dl (70-220) Calcium Level 8.0 mg/dl (8.4-10.2 ) Phosphorus 3.2 Level mg/dl (2.5-4.9) Magnesium 2.4 Level mg/dl (1.7-2.5) Bedside 92 Glucose mg/dL (70-220) RUTH ANN HILARIO NP Apr 04, 2019 10:42
--- NOTE | 2019-04-04 12:33 | CONS ---
Consult Date/Type/Reason Admit Date/Time Mar 31, 2019 at 10:05 Initial Consult Date 03/31/19 Type of Consultation: cv Requesting Provider: RUTH ANN HILARIO NP Date/Time of Note DATE: 04/04/19 TIME: 12:33 Subjective Cardiology follow-up progress note Subjective: Case discussed and family Patient with no chest pain or pressure. s/p R leg surgery 04/01. With no cardiac or anesthesia complication. Patient leg pain is better now C/P Sorethroat Objective: General: no acute distress HEENT: NC/AT. pupils are equal. round. NECK: NO JVD. no stridor. CV: RRR. systolic murmur; no gallop or rubs. PULM: no wheezing or rhonchi. GI: SOFT, NT, ND, no rebound or guarding Extremity: trace LE edema. Right leg is in a boot. Status post surgery neuro: awake and alert, OX3. Psych: calm and pleasant rectal: deferred echo Normal left ventricular systolic function. Normal left ventricular cavity size. Moderate hypertrophy of the basal septum. No obstruction with and without valsalva. Ejection fraction is visually estimated at 65 %. Tissue Doppler/Mitral Doppler indices are within normal limits. Aortic sclerosis without significant stenosis. Mild aortic valve regurgitation. The estimated Peak RVSP is 20 mmHg. Normal size and normal respiratory collapse consistent with normal right atrial pressure. Objective Vitals Vital Signs Date Temp Pulse Resp B/P (MAP) Pulse Ox O2 O2 Flow FiO2 Time Delivery Rate 04/04/19 98.3 91 18 134/75 98 Room Air 07:16 (94) 04/01/19 8.0 22:13 Intake and Output 04/03/19 04/03/19 04/04/19 1515:00 23:00 07:00 IntakeIntake Total 600 ml 440 ml 240 ml OutputOutput Total 475 ml 640 ml 800 ml BalanceBalance 125 ml -200 ml -560 ml Results/Medications Result Diagram: 04/04/19 04304/04/19 043 Results 24 hrs Laboratory Tests Test 04/03/19 12:47 04/03/19 17:57 04/03/19 20:30 04/04/19 02:11 Bedside Glucose 140 122 143 113 Test 04/04/19 04:30 04/04/19 08:57 White Blood Count 6.1 Red Blood Count 2.82 L Hemoglobin 8.5 L Hematocrit 25.9 L Mean Corpuscular 91.8 Volume Mean Corpuscular 30.1 Hemoglobin Mean Corpuscular 32.8 Hemoglobin Concent Red Cell 12.6 Distribution Width Platelet Count 172 Mean Platelet Volume 10.4 Immature 0.300 Granulocytes % Neutrophils % 64.1 Lymphocytes % 15.2 Monocytes % 16.0 H Eosinophils % 4.1 Basophils % 0.3 Nucleated Red Blood 0.0 Cells % Immature 0.020 Granulocytes # Neutrophils # 3.9 Lymphocytes # 0.9 Monocytes # 1.0 H Eosinophils # 0.3 Basophils # 0.0 Nucleated Red Blood 0.0 Cells # Sodium Level 138 Potassium Level 4.1 Chloride Level 106 Carbon Dioxide Level 26 Anion Gap 6 Blood Urea Nitrogen 23 H Creatinine 1.64 H Est Glomerular Filtrat Rate mL/min Glucose Level 93 Calcium Level 8.0 L Phosphorus Level 3.2 Magnesium Level 2.4 Bedside Glucose 92 Home Meds Reported Medications Exenatide Microspheres (Bydureon Bcise) 2 Mg/0.85 Ml Auto.injct, 2 MG SQ Q7D 03/31/19 Brimonidine Tartrate* (Brimonidine Tartrate*) 0.15%-10ML Drop Opht, 1 DROP BOTH EYES BID, #1 EA 03/31/19 Metformin Hcl* (Metformin Hcl*) 1,000 Mg Tablet, 1000 MG PO WITH BREAKFAST DINNE, #60 TAB 03/31/19 Losartan Potassium* (Losartan Potassium*) 100 Mg Tablet, 100 MG PO DAILY, TAB 03/31/19 Icosapent Ethyl (VASCEPA) 1 Gm Capsule, 1 GM PO BID, CAP 03/31/19 Atenolol* (Atenolol*) 100 Mg Tablet, 100 MG PO DAILY, #30 TAB 03/31/19 Atorvastatin* (Atorvastatin*) 40 Mg Tablet, 40 MG PO QHS, #30 TAB 03/31/19 Discontinued Reported Medications Ketorolac Tromethamine Oph (Ketorolac Tromethamine Oph) 0.4%-5 Ml Opht Drops, 1 DROP LEFT EYE BID, EA 09/30/18 Brimonidine Tartrate* (Brimonidine Tartrate*) 0.15%-10ML Drop Opht, 1 DROP BOTH EYES BID, #1 EA 09/30/18 Dorzolamide Hcl* (Dorzolamide Hcl*) 10 Ml Drops, 1 DROP BOTH EYES BID, #1 EA 09/30/18 Fish Oil* (Fish Oil*) 1,000 Mg Cap 03/19/11 Losartan Potassium* (Cozaar*) 50 Mg Tablet 03/19/11 Glipizide* (Glucotrol*) 5 Mg Tablet 03/19/11 Metformin* (Glucophage*) 500 Mg Tab 03/19/11 Atorvastatin (Lipitor) 40 Mg Tablet 03/19/11 Medications Current Medications IV Flush (NS 3 ml) 3 ml PER PROTOCOL IV ; Start 03/31/19 at 12:00 Ondansetron HCl (Zofran Inj) 4 mg Q6H PRN IV NAUSEA/VOMITING; Start 03/31/19 at 12:00 Acetaminophen (Tylenol Tab) 650 mg Q6H PRN PO .PAIN 1-3 OR TEMP; Start 03/31/19 at 12:00 Famotidine (Pepcid) 20 mg HS PO Last administered on 04/03/19at 20:25; Admin Dose 20 MG; Start 03/31/19 at 21:00 Diagnostic Test (Pha) (Accu-Chek) 1 ea 02 XX ; Start 04/01/19 at 02:00 Insulin Glargine (Lantus) 12 units DAILY@2000 SC Last administered on 04/03/19at 20:41; Admin Dose 12 UNITS; Start 03/31/19 at 20:00 Insulin Aspart (Novolog Insulin Pen) NOVOLOG *MILD* ALGORITHM WITH MEALS BEDTIME SC Last administered on 04/02/19at 12:47; Admin Dose 1 UNIT; Start 03/31/19 at 12:00 Miscellaneous Information 1 ea NOTE XX ; Start 03/31/19 at 12:30 Glucose (Glutose) 15 gm Q15M PRN PO DECREASED GLUCOSE; Start 03/31/19 at 12:30 Glucose (Glutose) 22.5 gm Q15M PRN PO DECREASED GLUCOSE; Start 03/31/19 at 12:30 Dextrose (D50w Syringe) 25 ml Q15M PRN IV DECREASED GLUCOSE; Start 03/31/19 at 12:30 Dextrose (D50w Syringe) 50 ml Q15M PRN IV DECREASED GLUCOSE; Start 03/31/19 at 12:30 Glucagon (Glucagen) 1 mg Q15M PRN IM DECREASED GLUCOSE; Start 03/31/19 at 12:30 Glucose (Glutose) 15 gm Q15M PRN BUCCAL DECREASED GLUCOSE; Start 03/31/19 at 12:30 Atenolol (Tenormin) 100 mg DAILY PO Last administered on 04/04/19at 09:02; Admin Dose 100 MG; Start 03/31/19 at 15:00 Atorvastatin Calcium (Lipitor) 40 mg QHS PO Last administered on 04/03/19 20:25; Admin Dose 40 MG; Start 03/31/19 at 21:00 Brimonidine Tartrate (Alphagan P 0.15%) 1 drop BID BOTH EYES Last administered on 04/04/19 09:04; Admin Dose 1 DROP; Start 03/31/19 at 21:00 Hydralazine HCl (Apresoline) 10 mg Q6H PRN IV sbp>160; Start 03/31/19 at 15:00 IV Flush (NS 3 ml) 3 ml PER PROTOCOL IV ; Start 04/01/19 at 21:00 Oxycodone HCl (Roxicodone) 10 mg Q4H PRN PO MORDERATE PAIN 4-6 Last administered on 04/02/19at 17:18; Admin Dose 10 MG; Start 04/02/19 at 00:00 Oxycodone HCl (Roxicodone) 5 mg Q4H PRN PO MILD PAIN 1-3; Start 04/02/19 at 00:00 Hydromorphone HCl (Dilaudid) 1 mg Q3H PRN IV .BREAKTHROUGH PAIN; Start 04/02/19 at 00:00 Acetaminophen (Tylenol Tab) 1,000 mg Q8 PO Last administered on 04/04/19at 06:39; Admin Dose 1,000 MG; Start 04/01/19 at 22:00 Ondansetron HCl (Zofran Inj) 4 mg Q4H PRN IV NAUSEA/VOMITING; Start 04/02/19 at 21:00 Gabapentin (Neurontin) 300 mg QHS PO Last administered on 04/03/19 20:25; Admin Dose 300 MG; Start 04/01/19 at 21:00 Pantoprazole (Protonix Tab) 40 mg DAILY@06 PO Last administered on 04/04/19at 06:39; Admin Dose 40 MG; Start 04/03/19 at 06:00 Docusate Sodium (Colace) 200 mg BID PO Last administered on 04/04/19at 09:00; Admin Dose 200 MG; Start 04/02/19 at 09:00; Stop 04/05/19 at 08:59 Simethicone (Mylicon) 80 mg TID PRN PO .GAS; Start 04/01/19 at 21:00 Senna/Docusate Sodium (Senokot-S) 2 tab BID PRN PO .CONSTIPATION Last administered on 04/03/19at 11:15; Admin Dose 2 TAB; Start 04/01/19 at 21:00 Magnesium Hydroxide (Milk Of Mag) 30 ml HS PRN PO .CONSTIPATION Last administered on 04/03/19at 20:25; Admin Dose 30 ML; Start 04/01/19 at 21:00 Bisacodyl (Dulcolax Supp) 10 mg DAILY PRN GA .CONSTIPATION; Start 04/01/19 at 21:00 Sodium Biphosphate/ Sodium Phosphate (Fleet Enema) 133 ml DAILY PRN GA .CONSTIPATION; Start 04/01/19 at 21:00 Diphenhydramine HCl (Benadryl) 25 mg Q4H PRN IV .ITCHING; Start 04/01/19 at 21:00 Naloxone HCl (Narcan) 0.2 mg Q2M PRN IV .RESP RATE; Start 04/02/19 at 00:00 Bethanechol Chloride (Urecholine) 25 mg URINARY CATH D/C PRN PO UNABLE TO VOID; Start 04/01/19 at 21:00 Oxycodone HCl (Roxicodone) 15 mg Q4H PRN PO SEVERE PAIN 7-10; Start 04/02/19 at 00:00 Aspirin (Halfprin) 81 mg DAILY PO Last administered on 04/04/19at 09:00; Admin Dose 81 MG; Start 04/04/19 at 09:00 Enoxaparin Sodium (Lovenox) 30 mg DAILY SC Last administered on 04/04/19at 09:03; Admin Dose 30 MG; Start 04/04/19 at 09:00 Assessment/Plan Hospital Course (Demo Recall) Cardiovascular preop evaluation Coronary artery disease with history of PCI Renal insufficiency Hypertension: Under good control Anemia Diabetes Right leg fracture post surgery now Recommendations: I will resume patient home statins Diabetic management as per internal medicine Continue with the beta-lourdes Resume aspirin Thank you for his referral. We will continue to follow along with you GRAY BARLOW MD [facility] GRAY BARLOW MD Apr 04, 2019 12:33
== END 2019-04-04 13:45 | DRG 493 ==
LOC: E/R 07:38 → MS1 10:05
PROVIDERS: ADMIT Internal Medicine; ATTEND Internal Medicine
PROC: 0HQ0XZZ Repair Scalp Skin, External Approach (ICD-10-PCS; 2019-03-31)
PROC: 0QSG06Z Reposition Right Tibia with Intramedullary Internal Fixation Device, Open Approach (ICD-10-PCS; principal; 2019-04-01 19:00)
DX: S82.391A Other fracture of lower end of right tibia, initial encounter for closed fracture (principal); N17.9 Acute kidney failure, unspecified; J44.9 Chronic obstructive pulmonary disease, unspecified; S82.451A Displaced comminuted fracture of shaft of right fibula, initial encounter for closed fracture; N18.3 Chronic kidney disease, stage 3 (moderate); I25.10 Atherosclerotic heart disease of native coronary artery without angina pectoris; S01.01XA Laceration without foreign body of scalp, initial encounter; E78.5 Hyperlipidemia, unspecified; D64.9 Anemia, unspecified; I12.9 Hypertensive chronic kidney disease with stage 1 through stage 4 chronic kidney disease, or unspecified chronic kidney disease; E11.22 Type 2 diabetes mellitus with diabetic chronic kidney disease; Z79.84 Long term (current) use of oral hypoglycemic drugs; W01.0XXA Fall on same level from slipping, tripping and stumbling without subsequent striking against object, initial encounter
CPT/HCPCS: 36415; 70450; 71045; 72125; 73510; 73562; 73590; 80048; 80053; 80061; 81001; 81003; 82043; 82550; 82553; 82962; 83036; 83540; 83735; 84100; 84155; 84300; 84484; 85025; 85610; 85730; 87086; 90471; 90715; 93005; 93306; 96374; 96375; 97110; 97116; 97163; 97167; 97530; J0690; J1170; J1650; J1815; J2250; J2270; J2274; J2370; J2405; J3010; J7030; J7120

== ENCOUNTER 2019-04-04 13:55 | Inpatient (IN) | payer MEDICARE, OTHER ==
[~2019-04-04] VITALS: Ht 172.7 cm; Wt 84.0 kg
[~2019-04-04 13:55] MED LIST changes: +ATEN100T PO; -ATOR40TA21; +ATOR40TA68 PO; -DORZ10DR5 BOTH EYES; +EXEN2AUT SQ; -GLIP5TAB3; +ICOS1CAP PO; -KETO5DRO79 LEFT EYE; +LOSA100T15 PO; -LOSA50TA2; -METF-849; +METF100010 PO; -OMEG-135
[2019-04-04 14:00] VITALS: BP 109/55; PULSE 88; RESP 18
[2019-04-04] MEDS ORDERED: BISACODYL 10 MG SUPP PR PRN (14:30)
[2019-04-04] MEDS ORDERED: LACTULOSE 30ML CUP PO PRN (14:30)
[2019-04-04] MEDS ORDERED: MAGNESIUM HYDROXIDE 30ML CUP PO PRN ×2 (14:30→15:00)
[2019-04-04] MEDS ORDERED: SENNA/DOCUSATE NA (8.6MG/50MG) TAB PO PRN (14:30)
[2019-04-04] MEDS ORDERED: PENDING SANTYL ORDER FOR WOUND CARE XX PRN (14:30)
[2019-04-04] MEDS ORDERED: ACETAMINOPHEN 325 MG TAB PO PRN (14:30)
[2019-04-04] MEDS ORDERED: oxyCODONE 5 MG TAB PO PRN (15:00)
[2019-04-04] MEDS ORDERED: GLUCOSE GEL 15 GRAM TUBE PO PRN ×2 (15:30)
[2019-04-04] MEDS ORDERED: DEXTROSE 50% 50 ML SYRINGE IV PRN ×2 (15:30)
[2019-04-04] MEDS ORDERED: GLUCOSE GEL 15 GRAM TUBE BUCCAL PRN (15:30)
[2019-04-04] MEDS ORDERED: GLUCAGON 1 MG INJ IM PRN (15:30)
[2019-04-04] MEDS: ACCU-CHEK XX SCH ×2 (17:05→21:01)
[2019-04-04] MEDS: metFORMIN 500 MG TAB PO SCH (17:20)
[2019-04-04] MEDS: INSULIN ASPART [NOVOLOG] 3 ML PEN SC SCH ×2 (17:20→20:42)
[2019-04-04 20:00] VITALS: BP 116/56; PULSE 90; RESP 18
[2019-04-04] MEDS: ATORVASTATIN 40 MG TAB PO SCH (20:38)
[2019-04-04] MEDS: FAMOTIDINE 20 MG TAB PO SCH (20:38)
[2019-04-04] MEDS: GABAPENTIN 300 MG CAP PO SCH (20:38)
[2019-04-04] MEDS: BRIMONIDINE 0.15% 5 ML OPH BOTH EYES SCH (20:41)
[2019-04-04] MEDS: INSULIN GLARGINE [LANTus] (100 UNITS/ML) SYG SC SCH (20:41)
[2019-04-04] MEDS ORDERED: DOCUSATE SODIUM 100 MG CAP PO SCH (21:00)
[2019-04-05 02:00] VITALS: BP 127/67; PULSE 90; RESP 18
[2019-04-05] MEDS: ACCU-CHEK XX SCH ×5 (02:00→20:57)
[2019-04-05] MEDS: oxyCODONE 15 MG TAB PO PRN (02:21)
[2019-04-05 07:30] VITALS: BP 138/70; PULSE 89; RESP 18
[2019-04-05] MEDS: metFORMIN 500 MG TAB PO SCH ×2 (07:35→17:35)
[2019-04-05] MEDS: INSULIN ASPART [NOVOLOG] 3 ML PEN SC SCH ×4 (07:35→20:57)
[2019-04-05] MEDS: BRIMONIDINE 0.15% 5 ML OPH BOTH EYES SCH ×2 (08:26→20:51)
[2019-04-05] MEDS: ASPIRIN (EC) 81 MG TAB PO SCH (08:31)
[2019-04-05] MEDS: ENOXAPARIN 30 MG/0.3 ML SYG SC SCH (08:54)
[2019-04-05] MEDS: ATENOLOL 100 MG TAB PO SCH (08:59)
--- NOTE | 2019-04-05 09:10 | PN ---
DATE: 04/05/2019 SUBJECTIVE: The patient was transferred to acute rehabilitation. No other events noted. No hemopty sis, hematemesis or hematochezia. OBJECTIVE: VITAL SIGNS: Blood pressure 127/67, respirations 18, pulse 90, temperature 97.8. HEENT: Head is normocephalic. NECK: Supple. HEART: Regular rate. LUNGS: Show diminished breath sounds at the base. ABDOMEN: Soft, nontender to palpation without rebound or guarding. EXTREMITIES: Negative for clubbing, cyanosis, no edema. He has dressing is clean, dry, intact. DERMATOLOGIC: No rashes. MUSCULOSKELETAL: No joint effusion. NEUROLOGIC: No change. MEDICATIONS: The patient's medications have been reviewed. LABORATORY DATA: Reviewed. ASSESSMENT AND PLAN: 1. Nonoliguric acute kidney injury on top of chronic kidney disease stage III with previous baseline creatinine of 1.3 to 1.5 mg/dL. Etiology of acute kidney injury is secondary to hemodynamics. Noa l function has been fluctuating. Continue to monitor. 2. Anemia. Monitor hemoglobin and hematocrit levels. 3. Mineral bone disorder, monitor calcium and phosphorus levels. 4. Right tib-fib fracture status post open reduction internal fixation. Continue physical therapy a nd pain control. 5. Diabetes. Continue current insulin regimen. 6. Hypertension. Continue current blood pressure regimen. 7. Coronary artery disease. Continue medical management. Follow up with Cardiology. Dictated By: KARINA WOLFF DO NR/NTS Conf#: [id number] DID#: [id number] CC: KARI ARIZA MD;*EndCC*
--- NOTE | 2019-04-05 09:58 | CONS ---
DATE OF ADMISSION: 04/04/2019 DATE OF CONSULTATION: 04/05/2019 REHABILITATION POST ADMISSION PHYSICIAN EVALUATION REHABILITATION IMPAIRMENT CATEGORY: Right tibial fibula fracture status post intramedullary nailing. ACTIVE COMORBIDITIES: 1. Blunt head trauma with scalp laceration status post fall. 2. Hard of hearing. 3. Acute on chronic kidney disease. 4. Anemia. 5. Coronary artery disease. 6. 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 7. Diabetes mellitus type 2. 8. Hypertension. 9. Hyperlipidemia. 10. Impairments in self-care and mobility. HISTORY OF PRESENT ILLNESS: The patient is a pleasant 83-year-old gentleman who is status post a mec hanical fall with resultant right tibia fibular fracture in addition to blunt head trauma with scalp laceration. The patient underwent intramedullary nailing and has been made partial weightbearing to the right lower extremity. The patient's hospital course has been notable for acute on chronic kidne y disease, anemia, pain, and significant impairments in self-care and mobility as compared to [facility]. The patient has been cleared to transfer to the rehabilitation unit [facility]. FUNCTIONAL HISTORY: Prior to recent events, he was independent in self-care tasks and mobility. Cur rently, he requires moderate assist for self-care and mobility tasks. I have reviewed the preadmission screen and patient's current functional status is consistent with [facility] preadmission screen. FAMILY AND SOCIAL HISTORY: The patient lives at home with family and hopes to return there upon disc harge. PAST MEDICAL HISTORY: 1. Chronic kidney disease. 2. Anemia. 3. Diabetes mellitus type 2. 4. Hypertension. 5. Hyperlipidemia. 6. Left shoulder arthropathy. CURRENT MEDICATIONS: 1. Aspirin 81 mg p.o. daily. 2. Tenormin 100 mg p.o. daily. 3. Atorvastatin 40 mg p.o. at bedtime. 4. Dulcolax suppository p.r.n. 5. Insulin sliding scale. 6. Senokot 2 tabs b.i.d. p.r.n. 7. Lovenox 30 mg subcutaneous daily. 8. Pepcid 20 mg p.o. at bedtime. 9. Neurontin 300 mg p.o. at bedtime. 10. Lantus 12 units subq daily. 11. Oxycodone p.r.n. 12. Mylicon p.r.n. ALLERGIES: THE PATIENT WITH NO KNOWN DRUG ALLERGIES. PHYSICAL EXAMINATION: VITAL SIGNS: He is currently afebrile with stable vital signs. HEENT: Extraocular motions are intact. Oropharynx clear. NECK: Supple. LUNGS: Clear anteriorly. CARDIAC: S1, S2. ABDOMEN: Soft, nontender, positive bowel sounds. NEUROLOGIC: He is awake and alert and oriented x3. He can follow simple 1-step commands. He has de creased hearing. 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 He has good strength in the left lower extremity. He is able to wiggle toes on the right with a splint in place. PLAN: The patient has been admitted for comprehensive interdisciplinary acute rehab and is anticipat ed to tolerate 3 hours of daily therapy in divided doses for at least 5/7 days a week. The treatment plan will include: 1. Physical therapy to focus on bed mobility, transfers, and household ambulation with the goal of h aving the patient reach a standby assist level. 2. Occupational therapy to focus on hygiene, grooming, dressing, bathing, and toileting activities w ith the goal of having the patient reach a standby assist level. 3. Rehabilitation nursing for carryover of therapeutic interventions, the goal of continent of bowel and bladder, and the goal of pain adequately managed on oral medications. REHABILITATION BARRIER: Hard of hearing. INTERVENTION FOR BARRIER: Interdisciplinary approach with focus on communication. ESTIMATED LENGTH OF STAY: 10 to 14 days. DISPOSITION GOAL: Home with family. I acknowledge that I performed a full physical examination on this patient within 24 hours of admissi on to the rehabilitation unit. I believe the patient is a good candidate for comprehensive interdisc iplinary rehab care and is anticipated to make reasonable goals in a reasonable period of time as out lined above. Dictated By: KARI CASTRO/CAROLYN Conf#: [id number] DID#: [id number]
--- NOTE | 2019-04-05 11:41 | HP ---
Date/Time of Note Date/Time of Note DATE: 04/05/19 TIME: 11:37 Assessment/Plan VTE Prophylaxis Risk score (from Ns)>0 risk: 12 [place]CD applied [place] [facility] [place] Yes Pharmacological prophylaxis: LMWH Lines/Catheters Urinary Cath still in place: No Assessment/Plan Hospital Course SUBJECTIVE: Lying in bed comfortably. No acute distress. OBJECTIVE: Vital signs-see below PHYSICAL EXAM: Constitutional: Adequately built,not in acute distress. HEENT:Scalp laceration-stapled. Eyes: Extraocular muscles intact. Anicteric sclerae. Pupils equal bilaterally, reactive to light. NECK: Supple without lymph node. CHEST: Clear and good breath sounds equally. No wheezing. No rhonchi. HEART: S1, S2. Regular rate and rhythm. ABDOMEN: Soft/non tender with no rebound tenderness. Bowel sounds were present. EXTREMITIES: RLE bandaged. No cyanosis, clubbing or edema. NEUROLOGIC: Alert and oriented x3. No focal deficit. No sensory deficit. PSYCHOSOCIAL: No signs of depression. INTEGUMENTARY: No open wounds. ASSESSMENT AND PLAN:83 yo M w/hearing loss,s/p cochlear implant, htn,cad,dm2,ckd here s/p fall found to have scalp lacerations and Right tibial/fibular fracture... Right tibia/fibula fracture -s/p ORIF -dvt ppx,pain control//rehab with specific weightbearing ordered by Chronic Anemia -stable hh -no blood tx needed at present ANDREAS on CKD stage III -Function with not much fluctuation. Nephrology on board. Posterior scalp laceration -Status post washout/closure. -francisco intact/c/d/i DM2 -stable -Basal/Bolus insulin HTN -stable -cont.home meds Coronary artery disease -cont.ASA/beta-blockers/statin Dyslipidemia -on statin DVT prophylaxis: LovenoxX 6 WKS Patient's urine culture is growing GNR. He does not admit to any UTI symptoms. Follow-up final culture. Patient is stable for physical therapy as appropriate in acute rehabilitation unit. Patient was seen in collaboration with Dr. SWENSON Result Diagram: 04/05/19 0614 04/05/19 0614 Results 24hrs Laboratory Tests Test 04/04/19 16:20 04/04/19 17:18 04/04/19 20:37 04/05/19 06:14 Urine Color YELLOW Urine Clarity CLEAR Urine pH 5.0 Urine Specific 1.015 [place] Urine Ketones NEGATIVE Urine Nitrite NEGATIVE Urine Bilirubin NEGATIVE Urine Urobilinogen NEGATIVE Urine Leukocyte NEGATIVE Esterase Urine Hemoglobin NEGATIVE Urine Glucose NEGATIVE Urine Total Protein NEGATIVE Bedside Glucose 111 108 White Blood Count 6.0 Red Blood Count 2.80 L Hemoglobin 8.5 L Hematocrit 26.0 L Mean Corpuscular 92.9 Volume Mean Corpuscular 30.4 Hemoglobin Mean Corpuscular 32.7 Hemoglobin Concent Red Cell Distribution 12.8 Width Platelet Count 180 Mean Platelet Volume 9.8 Immature Granulocytes 0.500 H % Neutrophils % 60.3 Lymphocytes % 19.5 Monocytes % 14.4 H Eosinophils % 5.0 Basophils % 0.3 Nucleated Red Blood 0.0 Cells % Immature Granulocytes 0.030 # Neutrophils # 3.6 Lymphocytes # 1.2 Monocytes # 0.9 Eosinophils # 0.3 Basophils # 0.0 Nucleated Red Blood 0.0 Cells # Sodium Level 141 Potassium Level 4.2 Chloride Level 105 Carbon Dioxide Level 27 Anion Gap 9 Blood Urea Nitrogen 21 H Creatinine 1.67 H Est Glomerular Filtrat Rate mL/min Glucose Level 106 Calcium Level 8.3 L Total Bilirubin 0.7 Direct Bilirubin 0.00 Indirect Bilirubin 0.7 Aspartate Amino 26 Transf (AST/SGOT) Alanine 14 Aminotransferase (ALT /SGPT) Alkaline Phosphatase 81 Total Protein 6.2 Albumin 3.2 L Globulin 3.00 Albumin/Globulin 1.06 Ratio Test 04/05/19 08:18 Bedside Glucose 107 HPI/ROS Admit Date/Time Admit Date/Time Apr 04, 2019 at 13:55 Hx of Present Illness 83 yo M w/hearing loss,s/p cochlear implant, htn,cad,dm2,ckd admitted at [facility] on 03/31/2019 secondary to mechanical fall found to have scalp lacerations and Right tibial/fibular fracture... Scalp laceration was stapled in the emergency room after washout. Patient underwent Intramedullary nail right distal tibia fracture on 04/01/2019 with . Postoperative course was uneventful. Patient had mild oozing from surgical site which was controlled. Hemoglobin remained stable without need for blood transfusion. 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 Losartan was put on hold. He was given gentle hydration with kidney function stabilized at baseline. Patient was continued on anticoagulation with Lovenox which was recommended for up to 6 weeks per orthopedics. Patient was continued on home medication for underlying comorbidities. He was cleared from orthopedic stand point to resume back on aspirin for underlying coronary artery disease with PCI. Patient was given insulin for underlying diabetes. He was seen by PT/OT who recommended further rehabilitation at acute rehabilitation unit and patient was accepted on 04/04/2019. At my encounter with the patient, he is not in any acute distress. Labs and vital signs stable at baseline. ROS 12 point review of system was assessed and is negative other than what is mentioned in the HPI PMH/Family/Social Past Medical History See HPI Medications Current Medications Magnesium Hydroxide (Milk Of Mag) 30 ml HS PRN PO CONSTIPATION; Start 04/04/19 at 14:30 Lactulose (Enulose) 20 gm DAILY PRN PO CONSTIPATION; Start 04/04/19 at 14:30 Bisacodyl (Dulcolax Supp) 10 mg DAILY PRN [place] CONSTIPATION; Start 04/04/19 at 14:30 Acetaminophen (Tylenol Tab) 650 mg Q6H PRN PO PAIN; Start 04/04/19 at 14:30 Miscellaneous Information (Pending [facility]yl Order For Wound Care) This patient palma... PRN PRN XX WOUND CARE; Start 04/04/19 at 14:30 Aspirin (Halfprin) 81 mg DAILY PO Last administered on 04/05/19at 08:31; Admin Dose 81 MG; Start 04/05/19 at 09:00 Atenolol (Tenormin) 100 mg DAILY PO ; Start 04/05/19 at 09:00 Atorvastatin Calcium (Lipitor) 40 mg HS PO Last administered on 04/04/19at 20:38; Admin Dose 40 MG; Start 04/04/19 at 21:00 Brimonidine Tartrate (Alphagan P 0.15%) 1 drop BID BOTH EYES Last administered on 04/05/19at 08:26; Admin Dose 1 DROP; Start 04/04/19 at 21:00 Senna/Docusate Sodium (Senokot-S) 2 tab BID PRN PO CONSTIPATION; Start 04/04/19 at 14:30 Enoxaparin Sodium (Lovenox) 30 mg DAILY SC Last administered on 04/05/19at 08:54; Admin Dose 30 MG; Start 04/05/19 at 09:00 Famotidine (Pepcid) 20 mg HS PO Last administered on 04/04/19at 20:38; Admin Dose 20 MG; Start 04/04/19 at 21:00 Gabapentin (Neurontin) 300 mg HS PO Last administered on 04/04/19at 20:38; Admin Dose 300 MG; Start 04/04/19 at 21:00 Oxycodone HCl (Roxicodone) 10 mg Q4H PRN PO MODERATE PAIN LEVEL 4-6; Start 04/04/19 at 14:30 Insulin Glargine (Lantus) 12 units DAILY@2000 SC Last administered on 04/04/19at 20:41; Admin Dose 12 UNITS; Start 04/04/19 at 20:00 Insulin Aspart (Novolog Insulin Pen) NOVOLOG *MILD* ALGORITHM WITH MEALS BEDTIME SC ; Start 04/04/19 at 17:35 Diagnostic Test (Pha) (Accu-Chek) 1 ea 02 XX ; Start 04/05/19 at 02:00 Magnesium Hydroxide (Milk Of Mag) 30 ml DAILY PRN PO CONSTIPATION; Start 04/04/19 at 15:00 Oxycodone HCl (Roxicodone) 5 mg Q4H PRN PO MODERATE PAIN LEVEL 0-3; Start 04/04/19 at 15:00 Oxycodone HCl (Roxicodone) 15 mg Q6H PRN PO SEVERE PAIN LEVEL 7-10 Last administered on 04/05/19at 02:21; Admin Dose 15 MG; Start 04/04/19 at 15:00 Simethicone (Mylicon) 80 mg TID PRN PO DISTENSION/GAS/BLOATING; Start 04/04/19 at 15:00 Metformin HCl (Glucophage) 1,000 mg BID WITH MEALS PO Last administered on 03/08 at 17:20; Admin Dose 1,000 MG; Start 04/04/19 at 17:35 Diagnostic Test (Pha) (Accu-Chek) 1 ea AC MEALS AND BEDTIME XX Last administered on 04/04/19at 21:01; Admin Dose 1 EA; Start 04/04/19 at 17:05 Miscellaneous Information 1 ea NOTE XX ; Start 04/04/19 at 15:30 Glucose (Glutose) 15 gm Q15M PRN PO DECREASED GLUCOSE; Start 04/04/19 at 15:30 Glucose (Glutose) 22.5 gm Q15M PRN PO DECREASED GLUCOSE; Start 04/04/19 at 15:30 Dextrose (D50w Syringe) 25 ml Q15M PRN IV DECREASED GLUCOSE; Start 04/04/19 at 15:30 Dextrose (D50w Syringe) 50 ml Q15M PRN IV DECREASED GLUCOSE; Start 04/04/19 at 15:30 Glucagon (Glucagen) 1 mg Q15M PRN IM DECREASED GLUCOSE; Start 04/04/19 at 15:30 Glucose (Glutose) 15 gm Q15M PRN BUCCAL DECREASED GLUCOSE; Start 04/04/19 at 15:30 Coded Allergies: No Known Allergy (Verified , 03/31/19) Past Surgical History See HPI Past Surgical Hx: noncontributory Family History Significant Family History: no pertinent family hx Exam/Review of Systems Vital Signs Vitals Vital Signs Date Temp Pulse Resp B/P (MAP) Pulse Ox O2 O2 Flow FiO2 Time Delivery Rate 04/05/19 98.7 89 18 138/70 95 Room Air 07:30 (92) Intake and Output 04/04/19 04/04/19 04/05/19 1515:00 23:00 07:00 IntakeIntake Total 320 ml 100 ml OutputOutput Total 300 ml 1050 ml BalanceBalance 20 ml -950 ml RUTH ANN HILARIO NP Apr 05, 2019 11:41
[2019-04-05 14:00] VITALS: BP 140/70; PULSE 95; RESP 18
[2019-04-05 20:04] VITALS: BP 139/70; PULSE 94; RESP 18
[2019-04-05] MEDS: ATORVASTATIN 40 MG TAB PO SCH (20:51)
[2019-04-05] MEDS: GABAPENTIN 300 MG CAP PO SCH (20:51)
[2019-04-05] MEDS: FAMOTIDINE 20 MG TAB PO SCH (20:51)
[2019-04-05] MEDS: INSULIN GLARGINE [LANTus] (100 UNITS/ML) SYG SC SCH (20:55)
[2019-04-06] MEDS: ACCU-CHEK XX SCH ×5 (02:00→21:00)
[2019-04-06 02:19] VITALS: BP 129/67; PULSE 88; RESP 18
[2019-04-06 07:00] VITALS: BP 135/71; PULSE 89; RESP 18
[2019-04-06] MEDS: metFORMIN 500 MG TAB PO SCH ×2 (07:35→17:35)
[2019-04-06] MEDS: INSULIN ASPART [NOVOLOG] 3 ML PEN SC SCH ×4 (07:35→20:25)
--- NOTE | 2019-04-06 08:49 | PN ---
DATE: 04/06/2019 SUBJECTIVE: The patient is stable, no events overnight. OBJECTIVE: VITAL SIGNS: Blood pressure is 129/67, respirations 18, pulse 88, temperature 98.0. HEENT: Head is normocephalic. NECK: Supple. HEART: Regular rate. LUNGS: Diminished breath sounds at the base. ABDOMEN: Soft, nontender to palpation. No rebound or guarding. EXTREMITIES: Negative for clubbing, cyanosis, no edema. DERMATOLOGIC: No rashes. MUSCULOSKELETAL: The patient has a cast over his right lower extremity. NEUROLOGIC: No change in exam. MEDICATIONS: Reviewed. LABORATORY DATA: Reviewed. IMAGING STUDIES: Reviewed. ASSESSMENT AND PLAN: 1. Nonoliguric acute kidney injury on top of chronic kidney disease stage III with previous baseline creatinine of 1.3 to 1.5 mg/dL. Etiology of acute kidney injury is secondary to hemodynamics. Noa l function is fluctuating, but approaching previous baseline. Continue current treatment plan, suppo rtive care, renally dose all medications. 2. Anemia. Monitor hemoglobin and hematocrit levels. 3. Mineral bone disorder, monitor calcium and phosphorus levels. 4. Right tib-fib fracture status post open reduction internal fixation. Continue physical therapy, pain control. 5. Diabetes. Continue current insulin regimen. 6. Hypertension. Continue current blood pressure regimen. 7. Coronary artery disease. Continue medical management. Follow up with Cardiology. Dictated By: KARINA WOLFF DO NR/NTS Conf#: [id number] DID#: [id number] CC: DEBBIE CELIS; KARI ARIZA MD;*End*
[2019-04-06] MEDS: ASPIRIN (EC) 81 MG TAB PO SCH (09:41)
[2019-04-06] MEDS: ENOXAPARIN 30 MG/0.3 ML SYG SC SCH (09:44)
[2019-04-06] MEDS: ATENOLOL 100 MG TAB PO SCH (09:45)
[2019-04-06] MEDS: BRIMONIDINE 0.15% 5 ML OPH BOTH EYES SCH ×2 (09:55→20:23)
[2019-04-06 14:00] VITALS: BP 121/63; PULSE 86; RESP 18
--- NOTE | 2019-04-06 14:23 | PN ---
Date/Time of Note Date/Time of Note DATE: 04/06/19 TIME: 14:18 Assessment/Plan VTE Prophylaxis Risk score (from Ns)>0 risk: 12 SCD applied (from [facility] [place] Yes Pharmacological prophylaxis: LMWH Lines/Catheters Urinary Cath still in place: No Assessment/Plan Hospital Course SUBJECTIVE: Lying in bed comfortably. No acute distress. OBJECTIVE: Vital signs-see below PHYSICAL EXAM: Constitutional: Adequately built,not in acute distress. HEENT:Scalp laceration-stapled. Eyes: Extraocular muscles intact. Anicteric sclerae. Pupils equal bilaterally, reactive to light. NECK: Supple without lymph node. CHEST: Clear and good breath sounds equally. No wheezing. No rhonchi. HEART: S1, S2. Regular rate and rhythm. ABDOMEN: Soft/non tender with no rebound tenderness. Bowel sounds were present. EXTREMITIES: RLE bandaged. No cyanosis, clubbing or edema. NEUROLOGIC: Alert and oriented x3. No focal deficit. No sensory deficit. PSYCHOSOCIAL: No signs of depression. INTEGUMENTARY: No open wounds. ASSESSMENT AND PLAN:83 yo M w/hearing loss,s/p cochlear implant, htn,cad,dm2,ckd here s/p fall found to have scalp lacerations and Right tibial/fibular fracture... Right tibia/fibula fracture -s/p ORIF -dvt ppx,pain control/rehab with specific weightbearing ordered by Chronic Anemia -stable hh -no blood tx needed at present ANDREAS on CKD stage III -Function with not much fluctuation. Nephrology on board. Posterior scalp laceration -Status post washout/closure. -francisco intact/c/d/i DM2 -stable -Basal/Bolus insulin HTN -stable -cont.home meds Coronary artery disease -cont.ASA/beta-blockers/statin Dyslipidemia -on statin DVT prophylaxis: LovenoxX 6 WKS Patient's urine culture is growing GNR. He does not admit to any UTI symptoms. Follow-up final culture. Patient was seen in collaboration with Dr. Baptiste Result Diagram: 04/06/19 0604/06/19 06 Results 24hrs Laboratory Tests Test 04/05/19 17:28 04/05/19 20:50 04/06/19 06:01 04/06/19 08:13 Bedside Glucose 94 118 105 White Blood Count 5.8 Red Blood Count 2.84 L Hemoglobin 8.3 L Hematocrit 26.1 L Mean Corpuscular Volume 91.9 Mean Corpuscular 29.2 Hemoglobin Mean Corpuscular 31.8 L Hemoglobin Concent Red Cell Distribution 12.6 Width Platelet Count 195 Mean Platelet Volume 9.9 Immature Granulocytes % 0.300 Neutrophils % 60.6 Lymphocytes % 21.4 Monocytes % 13.9 H Eosinophils % 3.5 Basophils % 0.3 Nucleated Red Blood 0.0 Cells % Immature Granulocytes # 0.020 Neutrophils # 3.5 Lymphocytes # 1.2 Monocytes # 0.8 Eosinophils # 0.2 Basophils # 0.0 Nucleated Red Blood 0.0 Cells # Sodium Level 138 Potassium Level 4.3 Chloride Level 103 Carbon Dioxide Level 27 Anion Gap 8 Blood Urea Nitrogen 21 H Creatinine 1.54 H Est Glomerular Filtrat Rate mL/min Glucose Level 96 Calcium Level 8.4 Phosphorus Level 3.2 Magnesium Level 2.2 Test 04/06/19 11:57 Bedside Glucose 121 Exam/Review of Systems Exam Vitals Vital Signs Date Temp Pulse Resp B/P (MAP) Pulse Ox O2 O2 Flow FiO2 Time Delivery Rate 04/06/19 98.4 89 18 135/71 96 Room Air 07:00 (92) Intake and Output 04/05/19 04/05/19 04/06/19 1515:00 23:00 07:00 IntakeIntake Total 240 ml 880 ml OutputOutput Total 150 ml 600 ml 900 ml BalanceBalance 90 ml 280 ml -900 ml Results Results 24hrs Laboratory Tests Test 04/05/19 17:28 04/05/19 20:50 04/06/19 06:01 04/06/19 08:13 Bedside Glucose 94 118 105 White Blood Count 5.8 Red Blood Count 2.84 L Hemoglobin 8.3 L Hematocrit 26.1 L Mean Corpuscular Volume 91.9 Mean Corpuscular 29.2 Hemoglobin Mean Corpuscular 31.8 L Hemoglobin Concent Red Cell Distribution 12.6 Width Platelet Count 195 Mean Platelet Volume 9.9 Immature Granulocytes % 0.300 Neutrophils % 60.6 Lymphocytes % 21.4 Monocytes % 13.9 H Eosinophils % 3.5 Basophils % 0.3 Nucleated Red Blood 0.0 Cells % Immature Granulocytes # 0.020 Neutrophils # 3.5 Lymphocytes # 1.2 Monocytes # 0.8 Eosinophils # 0.2 Basophils # 0.0 Nucleated Red Blood 0.0 Cells # Sodium Level 138 Potassium Level 4.3 Chloride Level 103 Carbon Dioxide Level 27 Anion Gap 8 Blood Urea Nitrogen 21 H Creatinine 1.54 H Est Glomerular Filtrat Rate mL/min Glucose Level 96 Calcium Level 8.4 Phosphorus Level 3.2 Magnesium Level 2.2 Test 04/06/19 11:57 Bedside Glucose 121 Medications Medication Current Medications Magnesium Hydroxide (Milk Of Mag) 30 ml HS PRN PO CONSTIPATION; Start 04/04/19 at 14:30 Lactulose (Enulose) 20 gm DAILY PRN PO CONSTIPATION; Start 04/04/19 at 14:30 Bisacodyl (Dulcolax Supp) 10 mg DAILY PRN [place] CONSTIPATION; Start 04/04/19 at 14:30 Acetaminophen (Tylenol Tab) 650 mg Q6H PRN PO PAIN; Start 04/04/19 at 14:30 Miscellaneous Information (Pending [facility] Order For Wound Care) This patient palma... PRN PRN XX WOUND CARE; Start 04/04/19 at 14:30 Aspirin (Halfprin) 81 mg DAILY PO Last administered on 04/06/19at 09:41; Admin Dose 81 MG; Start 04/05/19 at 09:00 Atenolol (Tenormin) 100 mg DAILY PO Last administered on 04/06/19at 09:45; Admin Dose 100 MG; Start 04/05/19 at 09:00 Atorvastatin Calcium (Lipitor) 40 mg HS PO Last administered on 04/05/19at 20:51; Admin Dose 40 MG; Start 04/04/19 at 21:00 Brimonidine Tartrate (Alphagan P 0.15%) 1 drop BID BOTH EYES Last administered on 04/06/19at 09:55; Admin Dose 1 DROP; Start 04/04/19 at 21:00 Senna/Docusate Sodium (Senokot-S) 2 tab BID PRN PO CONSTIPATION; Start 04/04/19 at 14:30 Enoxaparin Sodium (Lovenox) 30 mg DAILY SC Last administered on 04/06/19at 09:44; Admin Dose 30 MG; Start 04/05/19 at 09:00 Famotidine (Pepcid) 20 mg HS PO Last administered on 04/05/19at 20:51; Admin Dose 20 MG; Start 04/04/19 at 21:00 Gabapentin (Neurontin) 300 mg HS PO Last administered on 04/05/19at 20:51; Admin Dose 300 MG; Start 04/04/19 at 21:00 Oxycodone HCl (Roxicodone) 10 mg Q4H PRN PO MODERATE PAIN LEVEL 4-6; Start 04/04/19 at 14:30 Insulin Glargine (Lantus) 12 units DAILY@2000 SC Last administered on 04/05/19at 20:55; Admin Dose 12 UNITS; Start 04/04/19 at 20:00 Insulin Aspart (Novolog Insulin Pen) NOVOLOG *MILD* ALGORITHM WITH MEALS BEDTIME SC ; Start 04/04/19 at 17:35 Diagnostic Test (Pha) (Accu-Chek) 1 ea 02 XX ; Start 04/05/19 at 02:00 Magnesium Hydroxide (Milk Of Mag) 30 ml DAILY PRN PO CONSTIPATION; Start 04/04/19 at 15:00 Oxycodone HCl (Roxicodone) 5 mg Q4H PRN PO MODERATE PAIN LEVEL 0-3; Start 04/04/19 at 15:00 Oxycodone HCl (Roxicodone) 15 mg Q6H PRN PO SEVERE PAIN LEVEL 7-10 Last administered on 04/05/19at 02:21; Admin Dose 15 MG; Start 04/04/19 at 15:00 Simethicone (Mylicon) 80 mg TID PRN PO DISTENSION/GAS/BLOATING; Start 04/04/19 at 15:00 Metformin HCl (Glucophage) 1,000 mg BID WITH MEALS PO Last administered on 04/04/19at 17:20; Admin Dose 1,000 MG; Start 04/04/19 at 17:35 Diagnostic Test (Pha) (Accu-Chek) 1 ea AC MEALS AND BEDTIME XX Last administered on 04/05/19at 20:57; Admin Dose 1 EA; Start 04/04/19 at 17:05 Miscellaneous Information 1 ea NOTE XX ; Start 04/04/19 at 15:30 Glucose (Glutose) 15 gm Q15M PRN PO DECREASED GLUCOSE; Start 04/04/19 at 15:30 Glucose (Glutose) 22.5 gm Q15M PRN PO DECREASED GLUCOSE; Start 04/04/19 at 15:30 Dextrose (D50w Syringe) 25 ml Q15M PRN IV DECREASED GLUCOSE; Start 04/04/19 at 15:30 Dextrose (D50w Syringe) 50 ml Q15M PRN IV DECREASED GLUCOSE; Start 04/04/19 at 15:30 Glucagon (Glucagen) 1 mg Q15M PRN IM DECREASED GLUCOSE; Start 04/04/19 at 15:30 Glucose (Glutose) 15 gm Q15M PRN BUCCAL DECREASED GLUCOSE; Start 04/04/19 at 15:30 RUTH ANN HILARIO NP Apr 06, 2019 14:23
--- NOTE | 2019-04-06 17:08 | PN ---
DATE: 04/06/2019 SUBJECTIVE: The patient comes today, remains stable this morning, no new events, continues physical therapy and is tolerating rehabilitation. OBJECTIVE: VITAL SIGNS: Temperature 98.8, pulse 86, blood pressure 121/63, O2 saturation 98% on room air. NECK: Supple. No JVD or lymphadenopathy. CARDIAC: S1, S2. No added sounds or murmurs. CHEST: Diminished air entry on both bases, but no rales or wheezes. ABDOMEN: Soft, nontender. No guarding or rebound. EXTREMITIES: No cyanosis, clubbing, edema. NEUROLOGIC: Grossly intact. LABORATORY DATA: White count 5.8, hemoglobin 8.3, platelets 195. BUN 21, creatinine 1.54. DIAGNOSTIC DATA: No recent chest x-ray. IMPRESSION: 1. Rehabilitation, right tibiofibular fracture, status post intramedullary nailing. The patient con tinues to do well with physical therapy. Pain is adequately controlled. 2. Coronary artery disease, currently no chest pain or palpitations. 3. Diabetes mellitus. Continue glycemic management per primary team. 4. Essential hypertension, currently remains stable. 5. Deep venous thrombosis and gastrointestinal prophylaxis in place. Dictated By: SHAWN SWENSON MD SV/CAROLYN Conf#: [id number] DID#: [id number] CC: DEBBIE CELIS; KARI ARIZA MD;*End*
--- NOTE | 2019-04-06 18:12 | CONS ---
DATE OF ADMISSION: 04/04/2019 DATE OF CONSULTATION: 04/06/2019 TYPE OF CONSULTATION: Psychological. REFERRING PHYSICIAN: Kari Saini MD CONSULTING PSYCHOLOGIST: Rakesh Walters, PhD REASON FOR CONSULTATION: This consultation was requested by Dr. Rebecca Saini in order to evaluate t he cognitive and emotional functioning of this patient related to his present medical condition. HISTORY OF PRESENT ILLNESS: The patient is an 83-year-old male. The patient had a mechanical fall t hat resulted in tibia/fibular fracture. The patient also had some blunt head trauma with scalp lacer ation. The patient eventually underwent medullary nailing and was then cleared medically and sent to the acute multidisciplinary rehabilitation. The patient does have multiple other medical problems i ncluding chronic kidney disease, anemia, type 2 diabetes, hypertension, hyperlipidemia, left shoulder arthropathy. FAMILY AND SOCIAL HISTORY: The patient reports that he lives in an apartment alone. The patient chin s want to return there after discharge. MEDICATIONS: The patient is presently not on any psychotropic medications. SUBSTANCE USE: The patient reports that he does not use alcohol or other drugs. The patient reports he does not smoke. MENTAL STATUS EXAMINATION: APPEARANCE: The patient was seen in bed. He appears to be of average height and weight. The patien t is right-handed. BEHAVIOR: The patient was cooperative during the consultation. The patient did attempt to answer al l questions presented to him by the interviewer. The patient is hard of hearing and said that his En glish is poor. The patient's language was adequate, but he did have a hard time hearing and question s were written down for the patient, so he could answer them by reading the questions. MOOD AND AFFECT: The patient's mood appears to be slightly depressed. Affect does appear to be slig htly anxious. The patient actually states that he is more frustrated about the fall and resulting pr oblems that he has in regard to being depressed or anxious. PERCEPTION: The patient reports no hallucinations or delusions. The patient was alert to person, pl mark, situation and time. MEMORY AND COGNITION: The patient's memory and cognition appear to be basically intact. He was able to remember recent and remote events. He was able to name the hospital. He was able to name the ye ar. The patient was able to do 5 serial-7 subtractions from 100 without error. Overall given his ag e and all his medical problems, his cognitions appear to be adequate. INTELLIGENCE: Intelligence appears to fall in the average range. INSIGHT: Fair. JUDGMENT: Fair. THOUGHT CONTENT: The patient is concerned about his medical condition. The patient does want to rec over and return back to his previous level of functioning. The patient is motivated to try and get b henry and does want to do as well he can so he can return to living by himself. DISCUSSION: The patient can likely benefit from some cognitive/behavioral psychotherapy while he is on the unit. The psychotherapy would focus on his underlying level of frustration about his medical issues and work on ways he can better handle himself basically. 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 Thank you very much, Dr. Rebecca Saini, for referring this individual. Please do not hesitate to domenic villanueva if you have additional questions. Dictated By: RAKESH WALTERS PHD RALPH/CAROLYN Conf#: [id number] DID#: [id number] CC: KARI SAINI MD; DEBBIE CELIS;*EndCC*
[2019-04-06 20:00] VITALS: BP 110/63; PULSE 89; RESP 18
[2019-04-06] MEDS: GABAPENTIN 300 MG CAP PO SCH (20:23)
[2019-04-06] MEDS: FAMOTIDINE 20 MG TAB PO SCH (20:23)
[2019-04-06] MEDS: ATORVASTATIN 40 MG TAB PO SCH (20:23)
[2019-04-06] MEDS: INSULIN GLARGINE [LANTus] (100 UNITS/ML) SYG SC SCH (20:25)
[2019-04-07] MEDS: ACCU-CHEK XX SCH ×5 (02:00→21:00)
[2019-04-07 02:40] VITALS: BP 134/70; PULSE 82; RESP 18
[2019-04-07 07:30] VITALS: BP 130/62; PULSE 80; RESP 18
[2019-04-07] MEDS: INSULIN ASPART [NOVOLOG] 3 ML PEN SC SCH ×4 (07:35→21:00)
[2019-04-07] MEDS: metFORMIN 500 MG TAB PO SCH ×2 (07:50→17:12)
[2019-04-07] MEDS: ASPIRIN (EC) 81 MG TAB PO SCH (09:19)
[2019-04-07] MEDS: ATENOLOL 100 MG TAB PO SCH (09:19)
[2019-04-07] MEDS: ENOXAPARIN 30 MG/0.3 ML SYG SC SCH (09:20)
[2019-04-07] MEDS: BRIMONIDINE 0.15% 5 ML OPH BOTH EYES SCH ×2 (09:20→20:36)
[2019-04-07] MEDS: oxyCODONE 15 MG TAB PO PRN (09:34)
--- NOTE | 2019-04-07 09:38 | PN ---
DATE: 04/07/2019 SUBJECTIVE: The patient is stable, no events overnight. OBJECTIVE: VITAL SIGNS: Blood pressure is 134/70, respirations 18, pulse 82, temperature 98.0. HEENT: Head is normocephalic. NECK: Supple. HEART: Regular rate. LUNGS: Show diminished breath sounds at the base. ABDOMEN: Soft, nontender to palpation without rebound or guarding. EXTREMITIES: Negative for clubbing, cyanosis. No edema. DERMATOLOGIC: No rashes. MUSCULOSKELETAL: No joint effusion. NEUROLOGIC: No change in exam. MEDICATIONS: Reviewed. LABORATORY DATA: Reviewed. IMAGING STUDIES: Reviewed. ASSESSMENT AND PLAN: 1. Nonoliguric acute kidney injury on top of chronic kidney disease stage III with previous baseline creatinine of 1.3 to 1.5 mg/dL. Etiology of acute kidney injury is secondary to hemodynamics. Noa l function has been fluctuating, but overall stable. Continue current treatment plan, supportive car e, renally dose all medications. 2. Anemia. Monitor hemoglobin and hematocrit levels. 3. Mineral bone disorder. Monitor calcium and phosphorus levels. 4. Right tib-fib fracture, status post open reduction internal fixation. Continue physical therapy, pain control. 5. Diabetes. Continue current insulin regimen. 6. Hypertension. Continue current blood pressure regimen. 7. Coronary artery disease. Continue medical management. Dictated By: KARINA DURAN/NTS Conf#: [id number] DID#: [id number] CC: DEBBIE CELIS; KARI ARIZA MD;*EndCC*
--- NOTE | 2019-04-07 13:25 | PN ---
Date/Time of Note Date/Time of Note DATE: 04/07/19 TIME: 13:23 Assessment/Plan VTE Prophylaxis Risk score (from Ns)>0 risk: 12 SCD applied (from Ns): Yes Pharmacological prophylaxis: LMWH Lines/Catheters IV Catheter Type (from Nrs): Saline Lock Urinary Cath still in place: No Assessment/Plan Hospital Course SUBJECTIVE: Lying in bed comfortably. No acute distress. OBJECTIVE: Vital signs-see below PHYSICAL EXAM: Constitutional: Adequately built,not in acute distress. HEENT:Scalp laceration-stapled. Eyes: Extraocular muscles intact. Anicteric sclerae. Pupils equal bilaterally, reactive to light. NECK: Supple without lymph node. CHEST: Clear and good breath sounds equally. No wheezing. No rhonchi. HEART: S1, S2. Regular rate and rhythm. ABDOMEN: Soft/non tender with no rebound tenderness. Bowel sounds were present. EXTREMITIES: RLE bandaged. No cyanosis, clubbing or edema. NEUROLOGIC: Alert and oriented x3. No focal deficit. No sensory deficit. PSYCHOSOCIAL: No signs of depression. INTEGUMENTARY: No open wounds. ASSESSMENT AND PLAN:83 yo M w/hearing loss,s/p cochlear implant, htn,cad,dm2,ckd here s/p fall found to have scalp lacerations and Right tibial/fibular f racture... Right tibia/fibula fracture -s/p ORIF -dvt ppx,pain control/rehab with specific weightbearing ordered by Chronic Anemia -stable hh -no blood tx needed at present ANDREAS on CKD stage III -Function with not much fluctuation. Nephrology on board. Posterior scalp laceration -Status post washout/closure. -francisco intact/c/d/i DM2 -stable -Basal/Bolus insulin HTN -stable -cont.home meds Coronary artery disease -cont.ASA/beta-blockers/statin Dyslipidemia -on statin DVT prophylaxis: LovenoxX 6 WKS Urine culture reviewed. Less than 10,000 CFU Pseudomonas. Patient does not have any symptoms of UTI as such this does not need to be treated at this time. Patient was seen in collaboration with Dr. Baptiste Result Diagram: 04/06/19 0601 04/06/19 0601 Results 24hrs Laboratory Tests Test 04/06/19 17:31 04/06/19 20:22 04/07/19 07:50 04/07/19 12:37 Bedside Glucose 112 162 104 156 Exam/Review of Systems Exam Vitals Vital Signs Date Temp Pulse Resp B/P (MAP) Pulse Ox O2 O2 Flow FiO2 Time Delivery Rate 04/07/19 98.6 80 18 130/62 97 Room Air 07:30 (84) Intake and Output 04/06/19 04/06/19 04/07/19 1515:00 23:00 07:00 IntakeIntake Total 300 ml 1700 ml OutputOutput Total 800 ml 1150 ml BalanceBalance 300 ml 900 ml -1150 ml Results Results 24hrs Laboratory Tests Test 04/06/19 17:31 04/06/19 20:22 04/07/19 07:50 04/07/19 12:37 Bedside Glucose 112 162 104 156 Medications Medication Current Medications Magnesium Hydroxide (Milk Of Mag) 30 ml HS PRN PO CONSTIPATION; Start 04/04/19 at 14:30 Lactulose (Enulose) 20 gm DAILY PRN PO CONSTIPATION; Start 04/04/19 at 14:30 Bisacodyl (Dulcolax Supp) 10 mg DAILY PRN [place] CONSTIPATION; Start 04/04/19 at 14:30 Acetaminophen (Tylenol Tab) 650 mg Q6H PRN PO PAIN; Start 04/04/19 at 14:30 Miscellaneous Information (Pending [facility] Order For Wound Care) This patient palam... PRN PRN XX WOUND CARE; Start 04/04/19 at 14:30 Aspirin (Halfprin) 81 mg DAILY PO Last administered on 04/07/19at 09:19; Admin Dose 81 MG; Start 04/05/19 at 09:00 Atenolol (Tenormin) 100 mg DAILY PO Last administered on 04/07/19at 09:19; Admin Dose 100 MG; Start 04/05/19 at 09:00 Atorvastatin Calcium (Lipitor) 40 mg HS PO Last administered on 04/06/19at 20:23; Admin Dose 40 MG; Start 04/04/19 at 21:00 Brimonidine Tartrate (Alphagan P 0.15%) 1 drop BID BOTH EYES Last administered on 04/07/19at 09:20; Admin Dose 1 DROP; Start 04/04/19 at 21:00 Senna/Docusate Sodium (Senokot-S) 2 tab BID PRN PO CONSTIPATION; Start 04/04/19 at 14:30 Enoxaparin Sodium (Lovenox) 30 mg DAILY SC Last administered on 04/07/19 09:20; Admin Dose 30 MG; Start 04/05/19 at 09:00 Famotidine (Pepcid) 20 mg HS PO Last administered on 04/06/19 20:23; Admin Dose 20 MG; Start 04/04/19 at 21:00 Gabapentin (Neurontin) 300 mg HS PO Last administered on 04/06/19 20:23; Admin Dose 300 MG; Start 04/04/19 at 21:00 Oxycodone HCl (Roxicodone) 10 mg Q4H PRN PO MODERATE PAIN LEVEL 4-6; Start 04/04/19 at 14:30 Insulin Glargine (Lantus) 12 units DAILY@2000 SC Last administered on 04/06/19 20:25; Admin Dose 12 UNITS; Start 04/04/19 at 20:00 Insulin Aspart (Novolog Insulin Pen) NOVOLOG *MILD* ALGORITHM WITH MEALS BEDTIME SC Last administered on 04/07/19 12:39; Admin Dose 1 UNIT; Start 04/04/19 at 17:35 Diagnostic Test (Pha) (Accu-Chek) 1 ea 02 XX ; Start 04/05/19 at 02:00 Magnesium Hydroxide (Milk Of Mag) 30 ml DAILY PRN PO CONSTIPATION; Start 04/04/19 at 15:00 Oxycodone HCl (Roxicodone) 5 mg Q4H PRN PO MODERATE PAIN LEVEL 0-3; Start 04/04/19 at 15:00 Oxycodone HCl (Roxicodone) 15 mg Q6H PRN PO SEVERE PAIN LEVEL 7-10 Last administered on 04/07/19 09:34; Admin Dose 15 MG; Start 04/04/19 at 15:00 Simethicone (Mylicon) 80 mg TID PRN PO DISTENSION/GAS/BLOATING; Start 04/04/19 at 15:00 Metformin HCl (Glucophage) 1,000 mg BID WITH MEALS PO Last administered on 04/07/19 07:50; Admin Dose 1,000 MG; Start 04/04/19 at 17:35 Diagnostic Test (Pha) (Accu-Chek) 1 ea AC MEALS AND BEDTIME XX Last administered on 7/3/19at 11:30; Admin Dose 1 EA; Start 04/04/19 at 17:05 Miscellaneous Information 1 ea NOTE XX ; Start 04/04/19 at 15:30 Glucose (Glutose) 15 gm Q15M PRN PO DECREASED GLUCOSE; Start 04/04/19 at 15:30 Glucose (Glutose) 22.5 gm Q15M PRN PO DECREASED GLUCOSE; Start 04/04/19 at 15:30 Dextrose (D50w Syringe) 25 ml Q15M PRN IV DECREASED GLUCOSE; Start 04/04/19 at 15:30 Dextrose (D50w Syringe) 50 ml Q15M PRN IV DECREASED GLUCOSE; Start 04/04/19 at 15:30 Glucagon (Glucagen) 1 mg Q15M PRN IM DECREASED GLUCOSE; Start 04/04/19 at 15:30 Glucose (Glutose) 15 gm Q15M PRN BUCCAL DECREASED GLUCOSE; Start 04/04/19 at 15:30 RUTH ANN HILARIO NP Apr 07, 2019 13:25
[2019-04-07 14:15] VITALS: BP 83/53; PULSE 83
[2019-04-07 14:20] VITALS: BP 106/58
--- NOTE | 2019-04-07 18:52 | PN ---
DATE: 04/07/2019 SUBJECTIVE: This 83-year-old gentleman remains stable this morning. No new events overnight. He wa s seen by psychology yesterday for mood disorder following tib-fib fracture. OBJECTIVE: VITAL SIGNS: Temperature 98, pulse 83, blood pressure 106/58, O2 saturation 97% on room air. NECK: Supple. No JVD or lymphadenopathy. CARDIAC: S1, S2. No added sounds or murmurs. CHEST: Diminished air entry at both bases. ABDOMEN: Soft, nontender. No guarding or rebound. EXTREMITIES: No cyanosis, clubbing, edema. NEUROLOGIC: No focal deficits. LABORATORY DATA: Pending at time of this dictation. ASSESSMENT AND PLAN: 1. Rehabilitation, status post right tibiofibular fracture with intramedullary nailing. The patient continues physical therapy. 2. Coronary artery disease, currently stable with no acute coronary event. 3. Diabetes mellitus. Continue glycemic management. 4. Chronic kidney disease, currently stable. 5. 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 PLAN: 1. Continue physical therapy as tolerated. 2. Continue cardiac recommendations. 3. Current glycemic management. 4. Psychology recommendations. Dictated By: SHAWN SWENOSN MD SV/CAROLYN Conf#: [id number] DID#: [id number] CC: KARI ARIZA MD; DEBBIE CELIS;*End*
[2019-04-07 19:42] VITALS: BP 129/73; PULSE 80; RESP 18
[2019-04-07] MEDS: INSULIN GLARGINE [LANTus] (100 UNITS/ML) SYG SC SCH (20:35)
[2019-04-07] MEDS: [UNRECOGNIZED DRUG - OTHER] LEFT EYE SCH (20:36)
[2019-04-07] MEDS: ATORVASTATIN 40 MG TAB PO SCH (20:37)
[2019-04-07] MEDS: FAMOTIDINE 20 MG TAB PO SCH (20:37)
[2019-04-07] MEDS: GABAPENTIN 300 MG CAP PO SCH (20:37)
[2019-04-07] MEDS: [UNRECOGNIZED DRUG - OTHER] BOTH EYES SCH (20:38)
[2019-04-08 02:00] VITALS: BP 118/68; PULSE 84; RESP 18
[2019-04-08] MEDS: ACCU-CHEK XX SCH ×5 (02:00→20:47)
[2019-04-08 07:00] VITALS: BP 116/59; PULSE 83; RESP 18
[2019-04-08] MEDS: metFORMIN 500 MG TAB PO SCH ×2 (07:35→07:51)
[2019-04-08] MEDS: INSULIN ASPART [NOVOLOG] 3 ML PEN SC SCH ×4 (07:35→20:47)
[2019-04-08] MEDS: oxyCODONE 15 MG TAB PO PRN (07:51)
--- NOTE | 2019-04-08 08:38 | PN ---
DATE: 04/08/2019 SUBJECTIVE: The patient is stable, no events overnight. No fevers, chills, nausea or vomiting. OBJECTIVE: VITAL SIGNS: Blood pressure is 116/59, pulse 83, respirations 18, temperature 98.7. HEENT: Head is normocephalic. NECK: Supple. HEART: Regular rate. LUNGS: Show diminished breath sounds at the base. ABDOMEN: Soft, nontender to palpation. No rebound or guarding. EXTREMITIES: Negative for clubbing, cyanosis. The patient's right lower extremity is noted in dress ing. NEUROLOGIC: No change in exam. MEDICATIONS: Reviewed. LABORATORY DATA: Reviewed. ASSESSMENT AND PLAN: 1. Nonoliguric acute kidney injury on top of chronic kidney disease stage III with previous baseline creatinine of 1.3 to 1.5 mg/dL. Etiology of acute kidney injury is secondary to hemodynamics. Noa l function is fluctuating, but overall stable. Continue current treatment plan, supportive care, adal ally dose all medications. 2. Anemia. Monitor hemoglobin and hematocrit levels. 3. Mineral bone disorder, monitor calcium and phosphorus levels. 4. Right hip fracture status post open reduction internal fixation. Continue physical therapy, pain control. 5. Diabetes. Continue current insulin regimen. 6. Hypertension. Continue current blood pressure regimen. 7. Coronary artery disease. Dictated By: KARINA DURAN/CAROLYN Conf#: [id number] DID#: [id number] CC: KARI ARIZA MD; DEBBIE CELIS;*EndCC*
[2019-04-08] MEDS: ASPIRIN (EC) 81 MG TAB PO SCH (08:52)
[2019-04-08] MEDS: ATENOLOL 100 MG TAB PO SCH (08:52)
[2019-04-08] MEDS: BRIMONIDINE 0.15% 5 ML OPH BOTH EYES SCH ×2 (08:53→20:35)
[2019-04-08] MEDS: [UNRECOGNIZED DRUG - OTHER] LEFT EYE SCH ×2 (08:53→20:35)
[2019-04-08] MEDS: ENOXAPARIN 30 MG/0.3 ML SYG SC SCH (08:53)
[2019-04-08] MEDS: [UNRECOGNIZED DRUG - OTHER] BOTH EYES SCH ×2 (08:53→20:35)
--- NOTE | 2019-04-08 12:26 | PN ---
Date/Time of Note Date/Time of Note DATE: 04/08/19 TIME: 12:20 Assessment/Plan VTE Prophylaxis Risk score (from Ns)>0 risk: 11 SCD applied (from Nsg): Yes Pharmacological prophylaxis: LMWH Lines/Catheters IV Catheter Type (from Nrsg): Saline Lock Urinary Cath still in place: No Assessment/Plan Hospital Course SUBJECTIVE: Lying in bed comfortably. No acute distress. OBJECTIVE: Vital signs-see below PHYSICAL EXAM: Constitutional: Adequately built,not in acute distress. HEENT:Scalp laceration-stapled. Eyes: Extraocular muscles intact. Anicteric sclerae. Pupils equal bilaterally, reactive to light. NECK: Supple without lymph node. CHEST: Clear and good breath sounds equally. No wheezing. No rhonchi. HEART: S1, S2. Regular rate and rhythm. ABDOMEN: Soft/non tender with no rebound tenderness. Bowel sounds were present. EXTREMITIES: RLE bandaged. No cyanosis, clubbing or edema. NEUROLOGIC: Alert and oriented x3. No focal deficit. No sensory deficit. PSYCHOSOCIAL: No signs of depression. INTEGUMENTARY: No open wounds. ASSESSMENT AND PLAN:83 yo M w/hearing loss,s/p cochlear implant, htn,cad,dm2,ckd here s/p fall found to have scalp lacerations and Right tibial/fibular f racture... Right tibia/fibula fracture -s/p ORIF -dvt ppx,pain control/rehab with specific weightbearing ordered by Chronic Anemia -stable hh -no blood tx needed at present ANDREAS on CKD stage III -renal function with not much fluctuation. Nephrology on board. Posterior scalp laceration -Status post washout/closure. -francisco intact/c/d/i DM2 -stable -Basal/Bolus insulin HTN -stable -cont.home meds Coronary artery disease -cont.ASA/beta-blockers/statin Dyslipidemia -on statin DVT prophylaxis: LovenoxX 6 WKS Patient was seen in collaboration with Dr. Baptiste Result Diagram: 04/06/19 0601 04/06/19 0601 Results 24hrs Laboratory Tests Test 04/07/19 12:37 04/07/19 17:13 04/07/19 20:31 04/08/19 07:33 Bedside Glucose 156 109 114 80 Test 04/08/19 11:27 Bedside Glucose 114 Exam/Review of Systems Exam Vitals Vital Signs Date Temp Pulse Resp B/P (MAP) Pulse Ox O2 O2 Flow FiO2 Time Delivery Rate 04/08/19 98.7 83 18 116/59 97 Room Air 07:00 (78) Intake and Output 04/07/19 04/07/19 04/08/19 1515:00 23:00 07:00 IntakeIntake Total 1020 ml 990 ml OutputOutput Total 620 ml BalanceBalance 400 ml 990 ml Results Results 24hrs Laboratory Tests Test 04/07/19 12:37 04/07/19 17:13 04/07/19 20:31 04/08/19 07:33 Bedside Glucose 156 109 114 80 Test 04/08/19 11:27 Bedside Glucose 114 Medications Medication Current Medications Magnesium Hydroxide (Milk Of Mag) 30 ml HS PRN PO CONSTIPATION; Start 04/04/19 at 14:30 Lactulose (Enulose) 20 gm DAILY PRN PO CONSTIPATION; Start 04/04/19 at 14:30 Bisacodyl (Dulcolax Supp) 10 mg DAILY PRN [place] CONSTIPATION; Start 04/04/19 at 14:30 Acetaminophen (Tylenol Tab) 650 mg Q6H PRN PO PAIN; Start 04/04/19 at 14:30 Miscellaneous Information (Pending [facility] Order For Wound Care) This patient palma... PRN PRN XX WOUND CARE; Start 04/04/19 at 14:30 Aspirin (Halfprin) 81 mg DAILY PO Last administered on 04/08/19at 08:52; Admin Dose 81 MG; Start 04/05/19 at 09:00 Atenolol (Tenormin) 100 mg DAILY PO Last administered on 04/08/19at 08:52; Admin Dose 100 MG; Start 04/05/19 at 09:00 Atorvastatin Calcium (Lipitor) 40 mg HS PO Last administered on 04/07/19at 20:37; Admin Dose 40 MG; Start 04/04/19 at 21:00 Brimonidine Tartrate (Alphagan P 0.15%) 1 drop BID BOTH EYES Last administered on 04/08/19at 08:53; Admin Dose 1 DROP; Start 04/04/19 at 21:00 Senna/Docusate Sodium (Senokot-S) 2 tab BID PRN PO CONSTIPATION; Start 04/04/19 at 14:30 Enoxaparin Sodium (Lovenox) 30 mg DAILY SC Last administered on 04/08/19 08:53; Admin Dose 30 MG; Start 04/05/19 at 09:00 Famotidine (Pepcid) 20 mg HS PO Last administered on 04/07/19 20:37; Admin Dose 20 MG; Start 04/04/19 at 21:00 Gabapentin (Neurontin) 300 mg HS PO Last administered on 04/07/19 20:37; Admin Dose 300 MG; Start 04/04/19 at 21:00 Oxycodone HCl (Roxicodone) 10 mg Q4H PRN PO MODERATE PAIN LEVEL 4-6; Start at 14:30 Insulin Glargine (Lantus) 12 units DAILY@2000 SC Last administered on 04/07/19 20:35; Admin Dose 12 UNITS; Start 04/04/19 at 20:00 Insulin Aspart (Novolog Insulin Pen) NOVOLOG *MILD* ALGORITHM WITH MEALS BEDTIME SC Last administered on 04/07/19 12:39; Admin Dose 1 UNIT; Start 04/04 at 17:35 Diagnostic Test (Pha) (Accu-Chek) 1 ea 02 XX ; Start 04/05/19 at 02:00 Magnesium Hydroxide (Milk Of Mag) 30 ml DAILY PRN PO CONSTIPATION; Start 04/04/19 at 15:00 Oxycodone HCl (Roxicodone) 5 mg Q4H PRN PO MODERATE PAIN LEVEL 0-3; Start 04/04/19 at 15:00 Oxycodone HCl (Roxicodone) 15 mg Q6H PRN PO SEVERE PAIN LEVEL 7-10 Last administered on 04/08/19 07:51; Admin Dose 15 MG; Start 04/04/19 at 15:00 Simethicone (Mylicon) 80 mg TID PRN PO DISTENSION/GAS/BLOATING; Start 04/04/19 at 15:00 Metformin HCl (Glucophage) 1,000 mg BID WITH MEALS PO Last administered on 04/07/19 17:12; Admin Dose 1,000 MG; Start 04/04/19 at 17:35 Diagnostic Test (Pha) (Accu-Chek) 1 ea AC MEALS AND BEDTIME XX Last administered on 04/08/19 11:38; Admin Dose 1 EA; Start 04/04/19 at 17:05 Miscellaneous Information 1 ea NOTE XX ; Start 04/04/19 at 15:30 Glucose (Glutose) 15 gm Q15M PRN PO DECREASED GLUCOSE; Start 04/04/19 at 15:30 Glucose (Glutose) 22.5 gm Q15M PRN PO DECREASED GLUCOSE; Start 04/04/19 at 15:30 Dextrose (D50w Syringe) 25 ml Q15M PRN IV DECREASED GLUCOSE; Start 04/04/19 at 15:30 Dextrose (D50w Syringe) 50 ml Q15M PRN IV DECREASED GLUCOSE; Start 04/04/19 at 15:30 Glucagon (Glucagen) 1 mg Q15M PRN IM DECREASED GLUCOSE; Start 04/04/19 at 15:30 Glucose (Glutose) 15 gm Q15M PRN BUCCAL DECREASED GLUCOSE; Start 04/04/19 at 15:30 Patient Own Medication 1 ea BID BOTH EYES Last administered on 04/08/19at 08:53; Admin Dose 1 EA; Start 04/07/19 at 21:00 Patient Own Medication 1 ea BID LEFT EYE Last administered on 04/08/19at 08:53; Admin Dose 1 EA; Start 04/07/19 at 21:00 RUTH ANN HILARIO NP Apr 08, 2019 12:26
--- NOTE | 2019-04-08 13:00 | PN ---
DATE: 04/08/2019 SUBJECTIVE: The patient has remained stable overnight. No complaints of pain or discomfort. Contin ue splinting for right leg. PHYSICAL EXAMINATION: VITAL SIGNS: Temperature 98.7, pulse 83, blood pressure 116/59 on room air. NECK: Supple. No JVD or lymphadenopathy. CARDIAC: S1, S2, no added sounds or murmurs. CHEST: Diminished air entry both bases. No rales or wheezes. ABDOMEN: Soft, nontender. No guarding or rebound. ASSESSMENT: 1. Rehabilitation status post right tibiofibular fracture with intramedullary nailing. The patient continues rehabilitation therapy with gait max assist 5 feet with walker, ADL upper body minimal assi st, ADL lower body mass assist/dependent. 2. Coronary artery disease, currently stable. 3. Diabetes mellitus. Continues to remain stable. 4. Chronic kidney disease, nephrology. 5. Mood disorder. Appreciate psychology recommendations. Dictated By: SHAWN SWENSON MD SV/NTS Conf#: [id number] DID#: [id number] CC: KARI ARIZA MD;*EndCC*
[2019-04-08 14:00] VITALS: BP 118/60; PULSE 80; RESP 18
[2019-04-08 20:00] VITALS: BP 114/56; PULSE 88; RESP 18
[2019-04-08] MEDS: ATORVASTATIN 40 MG TAB PO SCH (20:37)
[2019-04-08] MEDS: GABAPENTIN 300 MG CAP PO SCH (20:37)
[2019-04-08] MEDS: FAMOTIDINE 20 MG TAB PO SCH (20:37)
[2019-04-08] MEDS: INSULIN GLARGINE [LANTus] (100 UNITS/ML) SYG SC SCH (20:37)
[2019-04-09 02:00] VITALS: BP 114/57; PULSE 83; RESP 17
[2019-04-09] MEDS: ACCU-CHEK XX SCH ×5 (02:00→21:09)
[2019-04-09 07:00] VITALS: BP 122/65; PULSE 77; RESP 18
[2019-04-09] MEDS: INSULIN ASPART [NOVOLOG] 3 ML PEN SC SCH ×4 (07:35→21:00)
--- NOTE | 2019-04-09 08:35 | PN ---
Date/Time of Note Date/Time of Note DATE: 04/09/19 TIME: 08:33 Subjective AWAKE ALERT MILD PAIN Objective Vital Signs Date Temp Pulse Resp B/P (MAP) Pulse Ox O2 O2 Flow FiO2 Time Delivery Rate 04/09/19 98.1 83 17 114/57 96 Room Air 02:00 (76) Intake and Output 04/08/19 04/08/19 04/09/19 1414:59 22:59 06:59 IntakeIntake Total 1960 ml 240 ml OutputOutput Total 300 ml 1050 ml 850 ml BalanceBalance -300 ml 910 ml -610 ml Exam LUNGS CTA COR RRR UE MOTOR GOOD CLOF BED MOB MIN A, XT DONNA Results/Medications Result Diagram: 04/06/19 0604/06/19 06 Results 24 hrs Laboratory Tests Test 04/08/19 11:27 04/08/19 17:07 04/08/19 20:36 04/09/19 08:08 Bedside Glucose 114 111 102 95 Medications Current Medications Magnesium Hydroxide (Milk Of Mag) 30 ml HS PRN PO CONSTIPATION; Start 04/04/19 at 14:30 Lactulose (Enulose) 20 gm DAILY PRN PO CONSTIPATION; Start 04/04/19 at 14:30 Bisacodyl (Dulcolax Supp) 10 mg DAILY PRN [place] CONSTIPATION; Start 04/04/19 at 14:30 Acetaminophen (Tylenol Tab) 650 mg Q6H PRN PO PAIN; Start 04/04/19 at 14:30 Miscellaneous Information ([facility]) This patient palma... PRN PRN XX WOUND CARE; Start 04/04/19 at 14:30 Aspirin (Halfprin) 81 mg DAILY PO Last administered on 04/08/19at 08:52; Admin Dose 81 MG; Start 04/05/19 at 09:00 Atenolol (Tenormin) 100 mg DAILY PO Last administered on 04/08/19at 08:52; Admin Dose 100 MG; Start 04/05/19 at 09:00 Atorvastatin Calcium (Lipitor) 40 mg HS PO Last administered on 04/08/19at 20:37; Admin Dose 40 MG; Start 04/04/19 at 21:00 Brimonidine Tartrate (Alphagan P 0.15%) 1 drop BID BOTH EYES Last administered on 7/4/19at 20:35; Admin Dose 1 DROP; Start 04/04/19 at 21:00 Senna/Docusate Sodium (Senokot-S) 2 tab BID PRN PO CONSTIPATION; Start 04/04/19 at 14:30 Enoxaparin Sodium (Lovenox) 30 mg DAILY SC Last administered on 04/08/19 08:53; Admin Dose 30 MG; Start 04/05/19 at 09:00 Famotidine (Pepcid) 20 mg HS PO Last administered on 04/08/19 20:37; Admin Dose 20 MG; Start 04/04/19 at 21:00 Gabapentin (Neurontin) 300 mg HS PO Last administered on 04/08/19 20:37; Admin Dose 300 MG; Start 04/04/19 at 21:00 Oxycodone HCl (Roxicodone) 10 mg Q4H PRN PO MODERATE PAIN LEVEL 4-6; Start 04/04/19 at 14:30 Insulin Glargine (Lantus) 12 units DAILY@2000 SC Last administered on 04/08/19 20:37; Admin Dose 12 UNITS; Start 04/04/19 at 20:00 Insulin Aspart (Novolog Insulin Pen) NOVOLOG *MILD* ALGORITHM WITH MEALS BEDTIME SC Last administered on 04/07/19 12:39; Admin Dose 1 UNIT; Start 04/04/19 at 17:35 Diagnostic Test (Pha) (Accu-Chek) 1 ea 02 XX ; Start 04/05/19 at 02:00 Magnesium Hydroxide (Milk Of Mag) 30 ml DAILY PRN PO CONSTIPATION; Start 03/08 at 15:00 Oxycodone HCl (Roxicodone) 5 mg Q4H PRN PO MODERATE PAIN LEVEL 0-3; Start 04/04/19 at 15:00 Oxycodone HCl (Roxicodone) 15 mg Q6H PRN PO SEVERE PAIN LEVEL 7-10 Last administered on 04/08/19 07:51; Admin Dose 15 MG; Start 04/04/19 at 15:00 Simethicone (Mylicon) 80 mg TID PRN PO DISTENSION/GAS/BLOATING; Start 04/04/19 at 15:00 Diagnostic Test (Pha) (Accu-Chek) 1 ea AC MEALS AND BEDTIME XX Last administered on 7/5/19at 08:15; Admin Dose 1 EA; Start 04/04/19 at 17:05 Miscellaneous Information 1 ea NOTE XX ; Start 04/04/19 at 15:30 Glucose (Glutose) 15 gm Q15M PRN PO DECREASED GLUCOSE; Start 04/04/19 at 15:30 Glucose (Glutose) 22.5 gm Q15M PRN PO DECREASED GLUCOSE; Start 04/04/19 at 15:30 Dextrose (D50w Syringe) 25 ml Q15M PRN IV DECREASED GLUCOSE; Start 04/04/19 at 15:30 Dextrose (D50w Syringe) 50 ml Q15M PRN IV DECREASED GLUCOSE; Start 04/04/19 at 15:30 Glucagon (Glucagen) 1 mg Q15M PRN IM DECREASED GLUCOSE; Start 04/04/19 at 15:30 Glucose (Glutose) 15 gm Q15M PRN BUCCAL DECREASED GLUCOSE; Start 04/04/19 at 15:30 Patient Own Medication 1 ea BID BOTH EYES Last administered on 04/08/19at 20:35; Admin Dose 1 EA; Start 04/07/19 at 21:00 Patient Own Medication 1 ea BID LEFT EYE Last administered on 04/08/19at 20:35; Admin Dose 1 EA; Start 04/07/19 at 21:00 Assessment/Plan Additional Assessment/Plan 1. Rehabilitation status post right tibiofibular fracture with intramedullary nailing. STEADY GAINS REACHING GOALS, BARRIERS TO FUNCTION BALANCE AND TTWB RLE 2. Coronary artery disease, currently stable. 3. Diabetes mellitus. Continues to remain stable. 4. Chronic kidney disease, nephrology. 5. Mood disorder. Appreciate psychology recommendations. SEE ARIZA MD Apr 09, 2019 08:35
--- NOTE | 2019-04-09 08:36 | PN ---
DATE: 04/09/2019 SUBJECTIVE: The patient is stable. No events overnight. OBJECTIVE: VITAL SIGNS: Blood pressure is 114/57, respirations 17, pulse 83, temperature 98.1. HEENT: Head is normocephalic. NECK: Supple. HEART: Regular rate. LUNGS: Show diminished breath sounds at the base. ABDOMEN: Soft, nontender to palpation without rebound or guarding. EXTREMITIES: Negative for clubbing, cyanosis. No edema. DERMATOLOGIC: No rashes. MUSCULOSKELETAL: No joint effusion. NEUROLOGIC: No change in exam. MEDICATIONS: The patient's medications have been reviewed. LABORATORY DATA: Has been reviewed. IMAGING STUDIES: The imaging studies have been reviewed. ASSESSMENT AND PLAN: 1. Nonoliguric acute kidney injury on top of chronic kidney disease stage III with previous baseline creatinine 1.3 to 1.5 mg/dL. Etiology of acute kidney injury is secondary to hemodynamics. Renal f unction has been fluctuating but overall, stable. Continue current treatment plan and supportive car e and renally dose all meds. 2. Anemia. Monitor H and H levels. 3. Mineral bone disorder. Monitor calcium and phosphorus levels. 4. Right hip fracture status post open reduction internal fixation. Continue physical therapy, cont inue pain control. 5. Diabetes. Continue current insulin regimen. 6. Hypertension. Continue current blood pressure regimen. 7. Coronary artery disease. Dictated By: KARINA DURAN/CAROLYN Conf#: [id number] DID#: [id number]
[2019-04-09] MEDS: ASPIRIN (EC) 81 MG TAB PO SCH (08:55)
[2019-04-09] MEDS: ATENOLOL 100 MG TAB PO SCH (08:55)
[2019-04-09] MEDS: oxyCODONE 15 MG TAB PO PRN (08:56)
[2019-04-09] MEDS: [UNRECOGNIZED DRUG - OTHER] LEFT EYE SCH ×2 (08:56→21:02)
[2019-04-09] MEDS: [UNRECOGNIZED DRUG - OTHER] BOTH EYES SCH ×2 (08:56→21:02)
[2019-04-09] MEDS: BRIMONIDINE 0.15% 5 ML OPH BOTH EYES SCH ×2 (08:57→21:04)
[2019-04-09] MEDS: ENOXAPARIN 30 MG/0.3 ML SYG SC SCH (09:06)
[2019-04-09 14:00] VITALS: BP 116/61; PULSE 81; RESP 18
--- NOTE | 2019-04-09 15:19 | PN ---
Date/Time of Note Date/Time of Note DATE: 04/09/19 TIME: 15:17 Assessment/Plan VTE Prophylaxis Risk score (from Ns)>0 risk: 11 SCD applied (from Ns): Yes Pharmacological prophylaxis: LMWH Lines/Catheters IV Catheter Type (from Nrs): Saline Lock Urinary Cath still in place: No Assessment/Plan Hospital Course SUBJECTIVE: Lying in bed comfortably. No acute distress. OBJECTIVE: Vital signs-see below PHYSICAL EXAM: Constitutional: Adequately built,not in acute distress. HEENT:Scalp laceration-stapled. Eyes: Extraocular muscles intact. Anicteric sclerae. Pupils equal bilaterally, reactive to light. NECK: Supple without lymph node. CHEST: Clear and good breath sounds equally. No wheezing. No rhonchi. HEART: S1, S2. Regular rate and rhythm. ABDOMEN: Soft/non tender with no rebound tenderness. Bowel sounds were present. EXTREMITIES: RLE bandaged. No cyanosis, clubbing or edema. NEUROLOGIC: Alert and oriented x3. No focal deficit. No sensory deficit. PSYCHOSOCIAL: No signs of depression. INTEGUMENTARY: No open wounds. ASSESSMENT AND PLAN:83 yo M w/hearing loss,s/p cochlear implant, htn,cad,dm2,ckd here s/p fall found to have scalp lacerations and Right tibial/fibular f racture... Right tibia/fibula fracture -s/p ORIF -dvt ppx,pain control/rehab with specific weightbearing ordered by Chronic Anemia -stable hh -no blood tx needed at present ANDREAS on CKD stage III -renal function with not much fluctuation. Nephrology on board. Posterior scalp laceration -Status post washout/closure. -francisco intact/c/d/i DM2 -stable -Basal/Bolus insulin HTN -stable -cont.home meds Coronary artery disease -cont.ASA/beta-blockers/statin Dyslipidemia -on statin DVT prophylaxis: LovenoxX 6 WKS Patient was seen in collaboration with Dr. Baptiste Result Diagram: 04/06/19 0601 04/06/19 0601 Results 24hrs Laboratory Tests Test 04/08/19 17:07 04/08/19 20:36 04/09/19 08:08 04/09/19 11:54 Bedside Glucose 111 102 95 146 Exam/Review of Systems Exam Vitals Vital Signs Date Temp Pulse Resp B/P (MAP) Pulse Ox O2 O2 Flow FiO2 Time Delivery Rate 04/09/19 97.9 77 18 122/65 97 Room Air 07:00 (84) Intake and Output 04/08/19 04/08/19 04/09/19 1515:00 23:00 07:00 IntakeIntake Total 1960 ml 240 ml OutputOutput Total 1050 ml 850 ml BalanceBalance 910 ml -610 ml Results Results 24hrs Laboratory Tests Test 04/08/19 17:07 04/08/19 20:36 04/09/19 08:08 04/09/19 11:54 Bedside Glucose 111 102 95 146 Medications Medication Current Medications Magnesium Hydroxide (Milk Of Mag) 30 ml HS PRN PO CONSTIPATION; Start 04/04/19 at 14:30 Lactulose (Enulose) 20 gm DAILY PRN PO CONSTIPATION; Start 04/04/19 at 14:30 Bisacodyl (Dulcolax Supp) 10 mg DAILY PRN [place] CONSTIPATION; Start 04/04/19 at 14:30 Acetaminophen (Tylenol Tab) 650 mg Q6H PRN PO PAIN; Start 04/04/19 at 14:30 Miscellaneous Information (Pending [facility] Order For Wound Care) This patient palma... PRN PRN XX WOUND CARE; Start 04/04/19 at 14:30 Aspirin (Halfprin) 81 mg DAILY PO Last administered on 04/09/19at 08:55; Admin Dose 81 MG; Start 04/05/19 at 09:00 Atenolol (Tenormin) 100 mg DAILY PO Last administered on 04/09/19at 08:55; Admin Dose 100 MG; Start 04/05/19 at 09:00 Atorvastatin Calcium (Lipitor) 40 mg HS PO Last administered on 04/08/19at 20:37; Admin Dose 40 MG; Start 04/04/19 at 21:00 Brimonidine Tartrate (Alphagan P 0.15%) 1 drop BID BOTH EYES Last administered on 04/09/19 08:57; Admin Dose 1 DROP; Start 04/04/19 at 21:00 Senna/Docusate Sodium (Senokot-S) 2 tab BID PRN PO CONSTIPATION; Start 04/04/19 at 14:30 Enoxaparin Sodium (Lovenox) 30 mg DAILY SC Last administered on 04/09/19at 09:06; Admin Dose 30 MG; Start 04/05/19 at 09:00 Famotidine (Pepcid) 20 mg HS PO Last administered on 04/08/19 20:37; Admin Dose 20 MG; Start 04/04/19 at 21:00 Gabapentin (Neurontin) 300 mg HS PO Last administered on 04/08/19 20:37; Admin Dose 300 MG; Start 04/04/19 at 21:00 Oxycodone HCl (Roxicodone) 10 mg Q4H PRN PO MODERATE PAIN LEVEL 4-6; Start at 14:30 Insulin Glargine (Lantus) 12 units DAILY@2000 SC Last administered on 04/08/19 20:37; Admin Dose 12 UNITS; Start 04/04/19 at 20:00 Insulin Aspart (Novolog Insulin Pen) NOVOLOG *MILD* ALGORITHM WITH MEALS BEDTIME SC Last administered on 04/09/19 12:00; Admin Dose 1 UNIT; Start 04/04 at 17:35 Diagnostic Test (Pha) (Accu-Chek) 1 ea 02 XX ; Start 04/05/19 at 02:00 Magnesium Hydroxide (Milk Of Mag) 30 ml DAILY PRN PO CONSTIPATION; Start 04/04/19 at 15:00 Oxycodone HCl (Roxicodone) 5 mg Q4H PRN PO MODERATE PAIN LEVEL 0-3; Start 04/04/19 at 15:00 Oxycodone HCl (Roxicodone) 15 mg Q6H PRN PO SEVERE PAIN LEVEL 7-10 Last administered on 04/09/19 08:56; Admin Dose 15 MG; Start 04/04/19 at 15:00 Simethicone (Mylicon) 80 mg TID PRN PO DISTENSION/GAS/BLOATING; Start 04/04/19 at 15:00 Diagnostic Test (Pha) (Accu-Chek) 1 ea AC MEALS AND BEDTIME XX Last administered on 04/09/19 12:02; Admin Dose 1 EA; Start 04/04/19 at 17:05 Miscellaneous Information 1 ea NOTE XX ; Start 04/04/19 at 15:30 Glucose (Glutose) 15 gm Q15M PRN PO DECREASED GLUCOSE; Start 04/04/19 at 15:30 Glucose (Glutose) 22.5 gm Q15M PRN PO DECREASED GLUCOSE; Start 04/04/19 at 15:30 Dextrose (D50w Syringe) 25 ml Q15M PRN IV DECREASED GLUCOSE; Start 04/04/19 at 15:30 Dextrose (D50w Syringe) 50 ml Q15M PRN IV DECREASED GLUCOSE; Start 04/04/19 at 15:30 Glucagon (Glucagen) 1 mg Q15M PRN IM DECREASED GLUCOSE; Start 04/04/19 at 15:30 Glucose (Glutose) 15 gm Q15M PRN BUCCAL DECREASED GLUCOSE; Start 04/04/19 at 15:30 Patient Own Medication 1 ea BID BOTH EYES Last administered on 04/09/19at 08:56; Admin Dose 1 EA; Start 04/07/19 at 21:00 Patient Own Medication 1 ea BID LEFT EYE Last administered on 04/09/19at 08:56; Admin Dose 1 EA; Start 04/07/19 at 21:00 RUTH ANN HILARIO NP Apr 09, 2019 15:19
[2019-04-09 20:00] VITALS: BP 119/63; PULSE 78; RESP 18
[2019-04-09] MEDS: INSULIN GLARGINE [LANTus] (100 UNITS/ML) SYG SC SCH (21:00)
[2019-04-09] MEDS: ATORVASTATIN 40 MG TAB PO SCH (21:05)
[2019-04-09] MEDS: GABAPENTIN 300 MG CAP PO SCH (21:05)
[2019-04-09] MEDS: FAMOTIDINE 20 MG TAB PO SCH (21:05)
[2019-04-10 02:00] VITALS: BP 116/68; PULSE 82; RESP 18
[2019-04-10] MEDS: ACCU-CHEK XX SCH ×5 (02:00→20:40)
[2019-04-10 07:30] VITALS: BP 132/65; PULSE 78; RESP 18
[2019-04-10] MEDS: INSULIN ASPART [NOVOLOG] 3 ML PEN SC SCH ×4 (07:35→20:40)
[2019-04-10] MEDS: oxyCODONE 15 MG TAB PO PRN (08:20)
--- NOTE | 2019-04-10 08:43 | PN ---
DATE: 04/10/2019 SUBJECTIVE: The patient is stable. No events overnight. No fevers, chills, nausea or vomiting. OBJECTIVE: VITAL SIGNS: Blood pressure is 116/68, respiration 18, pulse 82, temperature 97.8. HEENT: Head is normocephalic. NECK: Supple. HEART: Regular rate. LUNGS: Show diminished breath sounds at the base. ABDOMEN: Soft, nontender to palpation without rebound or guarding. EXTREMITIES: Negative for clubbing, cyanosis, no edema. DERMATOLOGIC: No rashes. MUSCULOSKELETAL: No joint effusion. NEUROLOGIC: No change in exam. MEDICATIONS: Have been reviewed. LABORATORY DATA: Has been reviewed. IMAGING STUDIES: Have been reviewed. ASSESSMENT AND PLAN: 1. Oliguric acute kidney injury on chronic kidney disease stage III with previous baseline creatinin e around 1.3 to 1.5 mg/dL. Etiology of acute kidney injury is secondary to hemodynamics. The patien t's renal function has been fluctuating but is overall stable. Continue current treatment plan. Continue supportive care, renally dose all meds. 2. Anemia. Monitor hemoglobin and hematocrit levels. 3. Mineral bone disorder. Monitor calcium and phosphorus levels. 4. Status post right tibia-fibular fracture, status post internal fixation with intramedullary nail ing. Continue physical therapy, pain control. 5. Diabetes. Continue current insulin regimen. 6. Hypertension. Continue current blood pressure regimen. 7. Coronary artery disease. Dictated By: KARINA WOLFF DO NR/NTS Conf#: [id number] DID#: [id number] CC: KARI ARIZA MD;*EndCC*
[2019-04-10] MEDS: [UNRECOGNIZED DRUG - OTHER] LEFT EYE SCH ×2 (09:08→20:39)
[2019-04-10] MEDS: [UNRECOGNIZED DRUG - OTHER] BOTH EYES SCH ×2 (09:09→20:39)
[2019-04-10] MEDS: BRIMONIDINE 0.15% 5 ML OPH BOTH EYES SCH ×2 (09:09→20:37)
[2019-04-10] MEDS: ASPIRIN (EC) 81 MG TAB PO SCH (09:12)
[2019-04-10] MEDS: ATENOLOL 100 MG TAB PO SCH (09:12)
[2019-04-10] MEDS: ENOXAPARIN 30 MG/0.3 ML SYG SC SCH (09:16)
--- NOTE | 2019-04-10 09:41 | PN ---
Date/Time of Note Date/Time of Note DATE: 04/10/19 TIME: 09:40 Subjective AWAKE ALERT, PO GOOD Objective Vital Signs Date Temp Pulse Resp B/P (MAP) Pulse Ox O2 O2 Flow FiO2 Time Delivery Rate 04/10/19 98.0 78 18 132/65 95 Room Air 07:30 (87) Intake and Output 04/09/19 04/09/19 04/10/19 1515:00 23:00 07:00 IntakeIntake Total 1440 ml OutputOutput Total 250 ml 800 ml BalanceBalance -250 ml 640 ml Exam LUNGS CTA COR RRR GOOD MOTOR CLOF XT AND BED MOB MIN A Results/Medications Result Diagram: 04/06/1960004/06/19600 Results 24 hrs Laboratory Tests Test 04/09/19 11:54 04/09/19 17:06 04/09/19 20:56 04/10/19 07:53 Bedside Glucose 146 133 98 91 Medications Current Medications Magnesium Hydroxide (Milk Of Mag) 30 ml HS PRN PO CONSTIPATION; Start 04/04/19 at 14:30 Lactulose (Enulose) 20 gm DAILY PRN PO CONSTIPATION; Start 04/04/19 at 14:30 Bisacodyl (Dulcolax Supp) 10 mg DAILY PRN [place] CONSTIPATION; Start 04/04/19 at 14:30 Acetaminophen (Tylenol Tab) 650 mg Q6H PRN PO PAIN; Start 04/04/19 at 14:30 Misc[facility] This patient palma... PRN PRN XX WOUND CARE; Start 04/04/19 at 14:30 Aspirin (Halfprin) 81 mg DAILY PO Last administered on 04/10/19at 09:12; Admin Dose 81 MG; Start 04/05/19 at 09:00 Atenolol (Tenormin) 100 mg DAILY PO Last administered on 04/10/19at 09:12; Admin Dose 100 MG; Start 04/05/19 at 09:00 Atorvastatin Calcium (Lipitor) 40 mg HS PO Last administered on 04/09/19at 21:05; Admin Dose 40 MG; Start 04/04/19 at 21:00 Brimonidine Tartrate (Alphagan P 0.15%) 1 drop BID BOTH EYES Last administered on 04/10/19at 09:09; Admin Dose 1 DROP; Start 04/04/19 at 21:00 Senna/Docusate Sodium (Senokot-S) 2 tab BID PRN PO CONSTIPATION; Start 04/04/19 at 14:30 Enoxaparin Sodium (Lovenox) 30 mg DAILY SC Last administered on 04/10/19at 09:16; Admin Dose 30 MG; Start 04/05/19 at 09:00 Famotidine (Pepcid) 20 mg HS PO Last administered on 04/09/19at 21:05; Admin Dose 20 MG; Start 04/04/19 at 21:00 Gabapentin (Neurontin) 300 mg HS PO Last administered on 04/09/19 21:05; Admin Dose 300 MG; Start 04/04/19 at 21:00 Oxycodone HCl (Roxicodone) 10 mg Q4H PRN PO MODERATE PAIN LEVEL 4-6; Start 04/04/19 at 14:30 Insulin Glargine (Lantus) 12 units DAILY@2000 SC Last administered on 04/09/19 21:00; Admin Dose 12 UNITS; Start 04/04/19 at 20:00 Insulin Aspart (Novolog Insulin Pen) NOVOLOG *MILD* ALGORITHM WITH MEALS BEDTIME SC Last administered on 04/09/19 12:00; Admin Dose 1 UNIT; Start 04/04/19 at 17:35 Diagnostic Test (Pha) (Accu-Chek) 1 ea 02 XX ; Start 04/05/19 at 02:00 Magnesium Hydroxide (Milk Of Mag) 30 ml DAILY PRN PO CONSTIPATION; Start 04/04/19 at 15:00 Oxycodone HCl (Roxicodone) 5 mg Q4H PRN PO MODERATE PAIN LEVEL 0-3; Start 04/04/19 at 15:00 Oxycodone HCl (Roxicodone) 15 mg Q6H PRN PO SEVERE PAIN LEVEL 7-10 Last administered on 04/10/19at 08:20; Admin Dose 15 MG; Start 04/04/19 at 15:00 Simethicone (Mylicon) 80 mg TID PRN PO DISTENSION/GAS/BLOATING; Start 04/04/19 at 15:00 Diagnostic Test (Pha) (Accu-Chek) 1 ea AC MEALS AND BEDTIME XX Last administered on 04/09/19at 21:09; Admin Dose 1 EA; Start 04/04/19 at 17:05 Miscellaneous Information 1 ea NOTE XX ; Start 04/04/19 at 15:30 Glucose (Glutose) 15 gm Q15M PRN PO DECREASED GLUCOSE; Start 04/04/19 at 15:30 Glucose (Glutose) 22.5 gm Q15M PRN PO DECREASED GLUCOSE; Start 04/04/19 at 15:30 Dextrose (D50w Syringe) 25 ml Q15M PRN IV DECREASED GLUCOSE; Start 04/04/19 at 15:30 Dextrose (D50w Syringe) 50 ml Q15M PRN IV DECREASED GLUCOSE; Start 04/04/19 at 15:30 Glucagon (Glucagen) 1 mg Q15M PRN IM DECREASED GLUCOSE; Start 04/04/19 at 15:30 Glucose (Glutose) 15 gm Q15M PRN BUCCAL DECREASED GLUCOSE; Start 04/04/19 at 15:30 Patient Own Medication 1 ea BID BOTH EYES Last administered on 04/10/19at 09:09; Admin Dose 1 EA; Start 04/07/19 at 21:00 Patient Own Medication 1 ea BID LEFT EYE Last administered on 04/10/19at 09:08; Admin Dose 1 EA; Start 04/07/19 at 21:00 Assessment/Plan Additional Assessment/Plan 1. Rehabilitation status post right tibiofibular fracture with intramedullary nailing. STEADY GAINS REACHING GOALS, BARRIERS TO FUNCTION BALANCE AND TTWB RLE 2. Coronary artery disease, currently stable. 3. Diabetes mellitus. Continues to remain stable.BS 91-146 4. Chronic kidney disease, nephrology.BMP PENDING 5. Mood disorder. Appreciate psychology recommendations. SEE ARIZA MD Apr 10, 2019 09:41
[2019-04-10 14:00] VITALS: BP 101/60; PULSE 85; RESP 18
--- NOTE | 2019-04-10 15:28 | PN ---
Date/Time of Note Date/Time of Note DATE: 04/10/19 TIME: 15:25 Assessment/Plan VTE Prophylaxis Risk score (from Nsg)>0 risk: 12 SCD applied (from Nsg): Yes Pharmacological prophylaxis: LMWH Lines/Catheters IV Catheter Type (from Nrsg): Saline Lock Urinary Cath still in place: No Assessment/Plan Hospital Course Assessment/Plan Right tibia/fibula fracture -s/p ORIF -dvt ppx,pain control/rehab with specific weightbearing per ortho Chronic Anemia -monitor H&H ANDREAS on CKD stage III -f/u nephrology recommendations Posterior scalp laceration -Status post washout/closure. -francisco intact/c/d/i DM2 -stable -Basal/Bolus insulin HTN - continue antihypertensives Coronary artery disease -continue cardiovascular medications Dyslipidemia -on statin Dispo/Plan: overall stable. continue rehab services Discussed POC with Dr. Benavides Result Diagram: 04/06/19 0601 04/06/19 0601 Results 24hrs Laboratory Tests Test 04/09/19 17:06 04/09/19 20:56 04/10/19 07:53 04/10/19 12:18 Bedside Glucose 133 98 91 193 Subjective 24 Hr Interval Summary Free Text/Dictation comfortable during visit. family at bedside. Exam/Review of Systems Exam Vitals Vital Signs Date Temp Pulse Resp B/P (MAP) Pulse Ox O2 O2 Flow FiO2 Time Delivery Rate 04/10/19 98.0 78 18 132/65 95 Room Air 07:30 (87) Intake and Output 04/09/19 04/09/19 04/10/19 1515:00 23:00 07:00 IntakeIntake Total 1440 ml OutputOutput Total 250 ml 800 ml BalanceBalance -250 ml 640 ml Constitutional: alert, oriented Psych: nl mood/affect Head: normocephalic Neck: supple, non-tender Respiratory: clear to auscultation Cardiovascular: regular rate and rhythm Gastrointestinal: soft, non-tender Extremities: other (rle dressing ) Neurological: PERINATAL DIRECTOR II-XII intact, nl mental status, nl speech Results Results 24hrs Laboratory Tests Test 04/09/19 17:06 04/09/19 20:56 04/10/19 07:53 04/10/19 12:18 Bedside Glucose 133 98 91 193 Medications Medication Current Medications Magnesium Hydroxide (Milk Of Mag) 30 ml HS PRN PO CONSTIPATION; Start 04/04/19 at 14:30 Lactulose (Enulose) 20 gm DAILY PRN PO CONSTIPATION; Start 04/04/19 at 14:30 Bisacodyl (Dulcolax Supp) 10 mg DAILY PRN [place] CONSTIPATION; Start 04/04/19 at 14:30 Acetaminophen (Tylenol Tab) 650 mg Q6H PRN PO PAIN; Start 04/04/19 at 14:30 Miscellaneous Information ([facility]) This patient palma... PRN PRN XX WOUND CARE; Start 04/04/19 at 14:30 Aspirin (Halfprin) 81 mg DAILY PO Last administered on 04/10/19 09:12; Admin Dose 81 MG; Start 04/05/19 at 09:00 Atenolol (Tenormin) 100 mg DAILY PO Last administered on 04/10/19 09:12; Admin Dose 100 MG; Start 04/05/19 at 09:00 Atorvastatin Calcium (Lipitor) 40 mg HS PO Last administered on 04/09/19 21:05; Admin Dose 40 MG; Start 04/04/19 at 21:00 Brimonidine Tartrate (Alphagan P 0.15%) 1 drop BID BOTH EYES Last administered on 04/10/19 09:09; Admin Dose 1 DROP; Start 04/04/19 at 21:00 Senna/Docusate Sodium (Senokot-S) 2 tab BID PRN PO CONSTIPATION; Start 04/04/19 at 14:30 Enoxaparin Sodium (Lovenox) 30 mg DAILY SC Last administered on 04/10/19at 09:16; Admin Dose 30 MG; Start 04/05/19 at 09:00 Famotidine (Pepcid) 20 mg HS PO Last administered on 04/09/19 21:05; Admin Dose 20 MG; Start 04/04/19 at 21:00 Gabapentin (Neurontin) 300 mg HS PO Last administered on 04/09/19 21:05; Admin Dose 300 MG; Start 04/04/19 at 21:00 Oxycodone HCl (Roxicodone) 10 mg Q4H PRN PO MODERATE PAIN LEVEL 4-6; Start 04/04/19 at 14:30 Insulin Glargine (Lantus) 12 units DAILY@2000 SC Last administered on 04/09/19at 21:00; Admin Dose 12 UNITS; Start 04/04/19 at 20:00 Insulin Aspart (Novolog Insulin Pen) NOVOLOG *MILD* ALGORITHM WITH MEALS BEDTIME SC Last administered on 04/10/19at 12:47; Admin Dose 2 UNIT; Start 04/04/19 at 17:35 Diagnostic Test (Pha) (Accu-Chek) 1 ea 02 XX ; Start 04/05/19 at 02:00 Magnesium Hydroxide (Milk Of Mag) 30 ml DAILY PRN PO CONSTIPATION; Start 04/04/19 at 15:00 Oxycodone HCl (Roxicodone) 5 mg Q4H PRN PO MODERATE PAIN LEVEL 0-3; Start 04/04/19 at 15:00 Oxycodone HCl (Roxicodone) 15 mg Q6H PRN PO SEVERE PAIN LEVEL 7-10 Last administered on 04/10/19at 08:20; Admin Dose 15 MG; Start 04/04/19 at 15:00 Simethicone (Mylicon) 80 mg TID PRN PO DISTENSION/GAS/BLOATING; Start 04/04/19 at 15:00 Diagnostic Test (Pha) (Accu-Chek) 1 ea AC MEALS AND BEDTIME XX Last admin istered on 04/09/19at 21:09; Admin Dose 1 EA; Start 04/04/19 at 17:05 Miscellaneous Information 1 ea NOTE XX ; Start 04/04/19 at 15:30 Glucose (Glutose) 15 gm Q15M PRN PO DECREASED GLUCOSE; Start 04/04/19 at 15:30 Glucose (Glutose) 22.5 gm Q15M PRN PO DECREASED GLUCOSE; Start 04/04/19 at 15:30 Dextrose (D50w Syringe) 25 ml Q15M PRN IV DECREASED GLUCOSE; Start 04/04/19 at 15:30 Dextrose (D50w Syringe) 50 ml Q15M PRN IV DECREASED GLUCOSE; Start 04/04/19 at 15:30 Glucagon (Glucagen) 1 mg Q15M PRN IM DECREASED GLUCOSE; Start 04/04/19 at 15:30 Glucose (Glutose) 15 gm Q15M PRN BUCCAL DECREASED GLUCOSE; Start 04/04/19 at 15:30 Patient Own Medication 1 ea BID BOTH EYES Last administered on 04/10/19at 09:09; Admin Dose 1 EA; Start 04/07/19 at 21:00 Patient Own Medication 1 ea BID LEFT EYE Last administered on 04/10/19at 09:08; Admin Dose 1 EA; Start 04/07/19 at 21:00 BHARGAV BAJWA NP Apr 10, 2019 15:28
[2019-04-10 19:40] VITALS: BP 118/68; PULSE 77; RESP 18
[2019-04-10] MEDS: GABAPENTIN 300 MG CAP PO SCH (20:39)
[2019-04-10] MEDS: FAMOTIDINE 20 MG TAB PO SCH (20:40)
[2019-04-10] MEDS: ATORVASTATIN 40 MG TAB PO SCH (20:40)
[2019-04-10] MEDS: INSULIN GLARGINE [LANTus] (100 UNITS/ML) SYG SC SCH (20:50)
[2019-04-11 02:00] VITALS: BP 125/64; PULSE 80; RESP 18
[2019-04-11] MEDS: ACCU-CHEK XX SCH ×5 (02:00→21:00)
[2019-04-11] MEDS: oxyCODONE 5 MG TAB PO PRN ×2 (04:27→19:48)
[2019-04-11] MEDS: INSULIN ASPART [NOVOLOG] 3 ML PEN SC SCH ×4 (07:35→21:00)
[2019-04-11 07:55] VITALS: BP 128/70; PULSE 75; RESP 19
--- NOTE | 2019-04-11 08:22 | PN ---
DATE: 04/11/2019 SUBJECTIVE: The patient is stable. No events overnight. OBJECTIVE: VITAL SIGNS: Blood pressure is 125/64, respiration 18, pulse 80, temperature 97.8. HEENT: Head is normocephalic. NECK: Supple. HEART: Regular rate. LUNGS: Show diminished breath sounds at the base. ABDOMEN: Soft, nontender to palpation without rebound or guarding. EXTREMITIES: Negative for clubbing, cyanosis, no edema. DERMATOLOGIC: No rashes. MUSCULOSKELETAL: No joint effusion. NEUROLOGIC: No change in exam. MEDICATIONS: The patient's medications have been reviewed. LABORATORY DATA: Reviewed. IMAGING STUDIES: Reviewed. ASSESSMENT AND PLAN: 1. Nonoliguric acute kidney injury on top of chronic kidney disease stage III with previous baseline creatinine 1.3 to 1.5 mg/dL. Etiology of ANDREAS is secondary to hemodynamics. Renal function is fluct uating, but improved. Continue current treatment plan, supportive care and renally dose all medicati ons. 2. Anemia. Monitor hemoglobin and hematocrit levels. 3. Mineral bone disorder. Monitor calcium and phosphorus levels. 4. Status post right tibular fibular fracture with internal fixation. Continue physical therapy, co ntinue pain control. 5. Diabetes. Continue current insulin regimen. 6. Hypertension. Continue current blood pressure regimen. 7. Coronary artery disease. Dictated By: KARINA WOLFF DO NR/NTS Conf#: [id number] DID#: [id number] CC: KARI ARIZA MD; SHAWN SWENSON MD;*EndCC*
[2019-04-11] MEDS: ASPIRIN (EC) 81 MG TAB PO SCH (09:56)
[2019-04-11] MEDS: [UNRECOGNIZED DRUG - OTHER] LEFT EYE SCH ×2 (09:58→21:05)
[2019-04-11] MEDS: ENOXAPARIN 30 MG/0.3 ML SYG SC SCH (09:58)
[2019-04-11] MEDS: [UNRECOGNIZED DRUG - OTHER] BOTH EYES SCH ×2 (09:59→21:05)
[2019-04-11] MEDS: BRIMONIDINE 0.15% 5 ML OPH BOTH EYES SCH ×2 (09:59→21:05)
[2019-04-11] MEDS: ATENOLOL 100 MG TAB PO SCH (10:02)
--- NOTE | 2019-04-11 19:07 | PN ---
Date/Time of Note Date/Time of Note DATE: 04/11/19 TIME: 19:05 Assessment/Plan VTE Prophylaxis Risk score (from Ns)>0 risk: 10 SCD applied (from Ns): No SCD contraindicated: other Pharmacological prophylaxis: LMWH Lines/Catheters IV Catheter Type (from Nrsg): Saline Lock Urinary Cath still in place: No Assessment/Plan Hospital Course Assessment/Plan Right tibia/fibula fracture -s/p ORIF -dvt ppx,pain control/rehab with specific weightbearing per ortho Chronic Anemia -monitor H&H ANDREAS on CKD stage III -f/u nephrology recommendations Posterior scalp laceration -Status post washout/closure. -francisco intact/c/d/i DM2 -stable -Basal/Bolus insulin HTN - continue antihypertensives Coronary artery disease -continue cardiovascular medications Dyslipidemia -on statin Dispo/Plan: overall stable. continue rehab services. continue current tx. Discussed POC with Dr. Benavides Result Diagram: 04/11/19 0624 Results 24hrs Laboratory Tests Test 04/10/19 20:37 04/11/19 06:24 04/11/19 07:39 04/11/19 11:51 Bedside Glucose 126 118 135 Sodium Level 138 Potassium Level 4.8 Chloride Level 105 Carbon Dioxide Level 26 Anion Gap 7 Blood Urea Nitrogen 29 H Creatinine 1.66 H Est Glomerular Filtrat Rate mL/min Glucose Level 110 Calcium Level 8.6 Phosphorus Level 4.1 Magnesium Level 2.1 Test 04/11/19 18:54 Bedside Glucose 162 Subjective 24 Hr Interval Summary Free Text/Dictation was seen in morning with family at bedside. reports working well with physical therapy. Exam/Review of Systems Exam Vitals Vital Signs Date Temp Pulse Resp B/P (MAP) Pulse Ox O2 O2 Flow FiO2 Time Delivery Rate 04/11/19 98.1 75 19 128/70 96 Room Air 07:55 (89) Intake and Output 04/10/19 04/10/19 04/11/19 1414:59 22:59 06:59 IntakeIntake Total 850 ml 1220 ml 1000 ml OutputOutput Total 200 ml 680 ml 500 ml BalanceBalance 650 ml 540 ml 500 ml Exam Constitutional: alert, oriented Psych: nl mood/affect Head: normocephalic Neck: supple, non-tender Respiratory: clear to auscultation Cardiovascular: regular rate and rhythm Gastrointestinal: soft, non-tender Extremities: other (rle dressing ) Neurological: FAMILY READINESS SUPPORT ASSISTANT II-XII intact, nl mental status, nl speech Results Results 24hrs Laboratory Tests Test 04/10/19 20:37 04/11/19 06:24 04/11/19 07:39 04/11/19 11:51 Bedside Glucose 126 118 135 Sodium Level 138 Potassium Level 4.8 Chloride Level 105 Carbon Dioxide Level 26 Anion Gap 7 Blood Urea Nitrogen 29 H Creatinine 1.66 H Est Glomerular Filtrat Rate mL/min Glucose Level 110 Calcium Level 8.6 Phosphorus Level 4.1 Magnesium Level 2.1 Test 04/11/19 18:54 Bedside Glucose 162 Medications Medication Current Medications Magnesium Hydroxide (Milk Of Mag) 30 ml HS PRN PO CONSTIPATION; Start 04/04/19 at 14:30 Lactulose (Enulose) 20 gm DAILY PRN PO CONSTIPATION Last administered on 04/10/19at 20:39; Admin Dose 20 GM; Start 04/04/19 at 14:30 Bisacodyl (Dulcolax Supp) 10 mg DAILY PRN [place] CONSTIPATION; Start 04/04/19 at 14:30 Acetaminophen (Tylenol Tab) 650 mg Q6H PRN PO PAIN; Start 04/04/19 at 14:30 Miscellaneous Information (Pending [facility] Order For Wound Care) This patient palma... PRN PRN XX WOUND CARE; Start 04/04/19 at 14:30 Aspirin (Halfprin) 81 mg DAILY PO Last administered on 04/11/19at 09:56; Admin Dose 81 MG; Start 04/05/19 at 09:00 Atenolol (Tenormin) 100 mg DAILY PO Last administered on 04/11/19at 10:02; Admin Dose 100 MG; Start 04/05/19 at 09:00 Atorvastatin Calcium (Lipitor) 40 mg HS PO Last administered on 04/10/19at 20:40; Admin Dose 40 MG; Start 04/04/19 at 21:00 Brimonidine Tartrate (Alphagan P 0.15%) 1 drop BID BOTH EYES Last administered on 04/11/19at 09:59; Admin Dose 1 DROP; Start 04/04/19 at 21:00 Senna/Docusate Sodium (Senokot-S) 2 tab BID PRN PO CONSTIPATION; Start 04/04/19 at 14:30 Enoxaparin Sodium (Lovenox) 30 mg DAILY SC Last administered on 04/11/19 09:58; Admin Dose 30 MG; Start 04/05/19 at 09:00 Famotidine (Pepcid) 20 mg HS PO Last administered on 04/10/19 20:40; Admin Dose 20 MG; Start 04/04/19 at 21:00 Gabapentin (Neurontin) 300 mg HS PO Last administered on 04/10/19 20:39; Admin Dose 300 MG; Start 04/04/19 at 21:00 Oxycodone HCl (Roxicodone) 10 mg Q4H PRN PO MODERATE PAIN LEVEL 4-6 Last administered on 04/11/19 04:27; Admin Dose 10 MG; Start 04/04/19 at 14:30 Insulin Glargine (Lantus) 12 units DAILY@2000 SC Last administered on 04/10/19 20:50; Admin Dose 12 UNITS; Start 04/04/19 at 20:00 Insulin Aspart (Novolog Insulin Pen) NOVOLOG *MILD* ALGORITHM WITH MEALS BEDTIME SC Last administered on 04/10/19at 12:47; Admin Dose 2 UNIT; Start 04/04/19 at 17:35 Diagnostic Test (Pha) (Accu-Chek) 1 ea 02 XX ; Start 04/05/19 at 02:00 Magnesium Hydroxide (Milk Of Mag) 30 ml DAILY PRN PO CONSTIPATION; Start 04/04/19 at 15:00 Oxycodone HCl (Roxicodone) 5 mg Q4H PRN PO MODERATE PAIN LEVEL 0-3; Start 04/04/19 at 15:00 Oxycodone HCl (Roxicodone) 15 mg Q6H PRN PO SEVERE PAIN LEVEL 7-10 Last administered on 04/10/19 08:20; Admin Dose 15 MG; Start 04/04/19 at 15:00 Simethicone (Mylicon) 80 mg TID PRN PO DISTENSION/GAS/BLOATING; Start 04/04/19 at 15:00 Diagnostic Test (Pha) (Accu-Chek) 1 ea AC MEALS AND BEDTIME XX Last administered on 04/09/19at 21:09; Admin Dose 1 EA; Start 04/04/19 at 17:05 Miscellaneous Information 1 ea NOTE XX ; Start 6/30/19 at 15:30 Glucose (Glutose) 15 gm Q15M PRN PO DECREASED GLUCOSE; Start 04/04/19 at 15:30 Glucose (Glutose) 22.5 gm Q15M PRN PO DECREASED GLUCOSE; Start 04/04/19 at 15:30 Dextrose (D50w Syringe) 25 ml Q15M PRN IV DECREASED GLUCOSE; Start 04/04/19 at 15:30 Dextrose (D50w Syringe) 50 ml Q15M PRN IV DECREASED GLUCOSE; Start 04/04/19 at 15:30 Glucagon (Glucagen) 1 mg Q15M PRN IM DECREASED GLUCOSE; Start 04/04/19 at 15:30 Glucose (Glutose) 15 gm Q15M PRN BUCCAL DECREASED GLUCOSE; Start 04/04/19 at 15:30 Patient Own Medication 1 ea BID BOTH EYES Last administered on 04/11/19at 09:59; Admin Dose 1 EA; Start 04/07/19 at 21:00 Patient Own Medication 1 ea BID LEFT EYE Last administered on 04/11/19at 09:58; Admin Dose 1 EA; Start 04/07/19 at 21:00 BHARGAV BAJWA NP Apr 11, 2019 19:06
[2019-04-11 20:00] VITALS: BP 117/58; PULSE 82; RESP 18
[2019-04-11] MEDS: ATORVASTATIN 40 MG TAB PO SCH (21:04)
[2019-04-11] MEDS: FAMOTIDINE 20 MG TAB PO SCH (21:04)
[2019-04-11] MEDS: GABAPENTIN 300 MG CAP PO SCH (21:04)
[2019-04-11] MEDS: INSULIN GLARGINE [LANTus] (100 UNITS/ML) SYG SC SCH (21:25)
[2019-04-11] MEDS ORDERED: DIPHENHYDRAMINE 25 MG CAP PO PRN (22:30)
[2019-04-12] MEDS: ACCU-CHEK XX SCH ×5 (02:00→21:47)
[2019-04-12 02:14] VITALS: BP 101/58; PULSE 79; RESP 18
[2019-04-12] MEDS: oxyCODONE 5 MG TAB PO PRN ×2 (03:58→19:40)
[2019-04-12 07:00] VITALS: BP 123/62; PULSE 71; RESP 18
[2019-04-12] MEDS: INSULIN ASPART [NOVOLOG] 3 ML PEN SC SCH ×4 (07:35→21:00)
--- NOTE | 2019-04-12 08:31 | PN ---
DATE: 04/12/2019 SUBJECTIVE: The patient is stable, no events overnight. OBJECTIVE: VITAL SIGNS: Blood pressure 101/58, respiration 18, pulse 79, temperature 98.0. HEENT: Head is normocephalic. NECK: Supple. HEART: Regular rate. LUNGS: Show diminished breath sounds at the base. ABDOMEN: Soft, nontender to palpation without rebound or guarding. EXTREMITIES: Negative for clubbing, cyanosis, no edema. DERMATOLOGIC: No rashes. MUSCULOSKELETAL: No joint effusion. NEUROLOGIC: No change in exam. MEDICATIONS: The patient's medications have been reviewed. LABORATORY DATA: Has been reviewed. Images have been reviewed. ASSESSMENT AND PLAN: 1. Nonoliguric acute kidney injury on top of chronic kidney disease stage III with previous baseline creatinine around 1.3 to 1.5 mg/dL. Etiology of acute kidney injury is secondary to hemodynamics. Renal function has been fluctuating but overall stable. Continue current treatment plan and supporti ve care and renally dose all meds. 2. Anemia. Monitor hemoglobin and hematocrit levels. 3. Mineral bone disorder. Monitor calcium and phosphorus levels. 4. Right tib-fib fracture status post open reduction internal fixation. Continue physical therapy, pain control. 5. Diabetes. Continue current insulin regimen. 6. Hypertension. Continue current blood pressure regimen. 7. Coronary artery disease. Dictated By: KARINA WOLFF DO NR/NTS Conf#: [id number] DID#: [id number] CC: KARI ARIZA MD; SHAWN SWENSON MD;*End*
[2019-04-12] MEDS: ASPIRIN (EC) 81 MG TAB PO SCH (10:00)
[2019-04-12] MEDS: MULTIVITAMINS THERAPEUTIC TAB PO SCH (10:00)
[2019-04-12] MEDS: ASCORBIC ACID 250 MG TAB PO SCH (10:00)
[2019-04-12] MEDS: ZINC SULFATE 220 MG CAP PO SCH (10:00)
[2019-04-12] MEDS: [UNRECOGNIZED DRUG - OTHER] LEFT EYE SCH ×2 (10:01→20:40)
[2019-04-12] MEDS: [UNRECOGNIZED DRUG - OTHER] BOTH EYES SCH ×2 (10:01→20:41)
[2019-04-12] MEDS: ATENOLOL 100 MG TAB PO SCH (10:01)
[2019-04-12] MEDS: BRIMONIDINE 0.15% 5 ML OPH BOTH EYES SCH ×2 (10:02→20:42)
[2019-04-12] MEDS: ENOXAPARIN 30 MG/0.3 ML SYG SC SCH (10:49)
--- NOTE | 2019-04-12 14:26 | PN ---
Date/Time of Note Date/Time of Note DATE: 04/12/19 TIME: 14:25 Objective Vital Signs Date Temp Pulse Resp B/P (MAP) Pulse Ox O2 O2 Flow FiO2 Time Delivery Rate 04/12/19 97.7 71 18 123/62 95 Room Air 07:00 (82) Intake and Output 04/11/19 04/11/19 04/12/19 1515:00 23:00 07:00 IntakeIntake Total 300 ml 200 ml 100 ml OutputOutput Total 400 ml 200 ml BalanceBalance -100 ml 0 ml 100 ml Exam INTERDISCIPLINARY TEAM CONFERENCE Attended by PT, OT, ST, Supervisor Ore Dressing, Social Work, Rehabilitation Nursing, Manager Learning and Truck Safety InspectorPower Line Installer Exam: Pulm- cta Abd- soft BOWEL- Cont BLADDER- urinary retention SKIN- improving OT- DRESSING- mod BATHING- mod TOILETING- mod PT- BED MOBILITY- sba TRANSFERS-min AMBULATION- min 45 feet A/P- Interdisciplinary team conference held today. Please see interdisciplinary sheet. Working toward d.c. on 04/13 with post discharge follow up of physical therapy, occupational therapy to lower level of care Results/Medications Result Diagram: 04/11/19 0624 Results 24 hrs Laboratory Tests Test 04/11/19 18:54 04/11/19 21:03 04/12/19 07:49 04/12/19 12:18 Bedside Glucose 162 156 138 122 Medications Current Medications Magnesium Hydroxide (Milk Of Mag) 30 ml HS PRN PO CONSTIPATION; Start 04/04/19 at 14:30 Lactulose (Enulose) 20 gm DAILY PRN PO CONSTIPATION Last administered on 04/10/19at 20:39; Admin Dose 20 GM; Start 04/04/19 at 14:30 Bisacodyl (Dulcolax Supp) 10 mg DAILY PRN DC CONSTIPATION; Start 04/04/19 at 14:30 Acetaminophen (Tylenol Tab) 650 mg Q6H PRN PO PAIN; Start 04/04/19 at 14:30 Miscellaneous Information (Pending Santyl Order For Wound Care) This patient palma... PRN PRN XX WOUND CARE; Start 04/04/19 at 14:30 Aspirin (Halfprin) 81 mg DAILY PO Last administered on 04/12/19at 10:00; Admin Dose 81 MG; Start 04/05/19 at 09:00 Atenolol (Tenormin) 100 mg DAILY PO Last administered on 04/12/19 10:01; Admin Dose 100 MG; Start 04/05/19 at 09:00 Atorvastatin Calcium (Lipitor) 40 mg HS PO Last administered on 04/11/19 21:04; Admin Dose 40 MG; Start 04/04/19 at 21:00 Brimonidine Tartrate (Alphagan P 0.15%) 1 drop BID BOTH EYES Last administered on 04/12/19 10:02; Admin Dose 1 DROP; Start 04/04/19 at 21:00 Senna/Docusate Sodium (Senokot-S) 2 tab BID PRN PO CONSTIPATION; Start 04/04/19 at 14:30 Enoxaparin Sodium (Lovenox) 30 mg DAILY SC Last administered on 04/12/19 10:49; Admin Dose 30 MG; Start 04/05/19 at 09:00 Famotidine (Pepcid) 20 mg HS PO Last administered on 04/11/19 21:04; Admin Dose 20 MG; Start 04/04/19 at 21:00 Gabapentin (Neurontin) 300 mg HS PO Last administered on 04/11/19 21:04; Admin Dose 300 MG; Start 04/04/19 at 21:00 Oxycodone HCl (Roxicodone) 10 mg Q4H PRN PO MODERATE PAIN LEVEL 4-6 Last administered on 04/12/19 03:58; Admin Dose 10 MG; Start 04/04/19 at 14:30 Insulin Glargine (Lantus) 12 units DAILY@2000 SC Last administered on 04/11/19 21:25; Admin Dose 12 UNITS; Start 04/04/19 at 20:00 Insulin Aspart (Novolog Insulin Pen) NOVOLOG *MILD* ALGORITHM WITH MEALS BEDTIME SC Last administered on 04/11/19 19:14; Admin Dose 1 UNIT; Start 04/04/19 at 17:35 Diagnostic Test (Pha) (Accu-Chek) 1 ea 02 XX ; Start 04/05/19 at 02:00 Magnesium Hydroxide (Milk Of Mag) 30 ml DAILY PRN PO CONSTIPATION; Start 04/04/19 at 15:00 Oxycodone HCl (Roxicodone) 5 mg Q4H PRN PO MODERATE PAIN LEVEL 0-3; Start 04/04/19 at 15:00 Oxycodone HCl (Roxicodone) 15 mg Q6H PRN PO SEVERE PAIN LEVEL 7-10 Last administered on 04/10/19at 08:20; Admin Dose 15 MG; Start 04/04/19 at 15:00 Simethicone (Mylicon) 80 mg TID PRN PO DISTENSION/GAS/BLOATING; Start 04/04/19 at 15:00 Diagnostic Test (Pha) (Accu-Chek) 1 ea AC MEALS AND BEDTIME XX Last administered on 04/09/19at 21:09; Admin Dose 1 EA; Start 04/04/19 at 17:05 Miscellaneous Information 1 ea NOTE XX ; Start 04/04/19 at 15:30 Glucose (Glutose) 15 gm Q15M PRN PO DECREASED GLUCOSE; Start 04/04/19 at 15:30 Glucose (Glutose) 22.5 gm Q15M PRN PO DECREASED GLUCOSE; Start 04/04/19 at 15:30 Dextrose (D50w Syringe) 25 ml Q15M PRN IV DECREASED GLUCOSE; Start 04/04/19 at 15:30 Dextrose (D50w Syringe) 50 ml Q15M PRN IV DECREASED GLUCOSE; Start 04/04/19 at 15:30 Glucagon (Glucagen) 1 mg Q15M PRN IM DECREASED GLUCOSE; Start 04/04/19 at 15:30 Glucose (Glutose) 15 gm Q15M PRN BUCCAL DECREASED GLUCOSE; Start 04/04/19 at 15:30 Patient Own Medication 1 ea BID BOTH EYES Last administered on 04/12/19 10:01; Admin Dose 1 EA; Start 04/07/19 at 21:00 Patient Own Medication 1 ea BID LEFT EYE Last administered on 04/12/19at 10:01; Admin Dose 1 EA; Start 04/07/19 at 21:00 Diphenhydramine HCl (Benadryl) 25 mg Q6H PRN PO ITCHING; Start 04/11/19 at 22:30; Stop 04/12/19 at 22:29 Ascorbic Acid (Vitamin C) 250 mg DAILY PO Last administered on 04/12/19at 10:00; Admin Dose 250 MG; Start 04/12/19 at 09:00 Zinc Sulfate (Zinc Sulfate) 220 mg DAILY PO Last administered on 04/12/19at 10:00; Admin Dose 220 MG; Start 04/12/19 at 09:00 Multivitamins Therapeutic (Theragran) 1 tab DAILY PO Last administered on 04/12/19at 10:00; Admin Dose 1 TAB; Start 04/12/19 at 09:00 KARI ARIZA MD Apr 12, 2019 14:26
--- NOTE | 2019-04-12 14:58 | PN ---
Date/Time of Note Date/Time of Note DATE: 04/12/19 TIME: 14:57 Assessment/Plan VTE Prophylaxis Risk score (from Ns)>0 risk: 12 SCD applied (from Ns): Yes Pharmacological prophylaxis: LMWH Lines/Catheters IV Catheter Type (from Nrs): Saline Lock Urinary Cath still in place: No Assessment/Plan Hospital Course SUBJECTIVE: No acute distress. OBJECTIVE: Vital signs-see below PHYSICAL EXAM: Constitutional: Adequately built,not in acute distress. HEENT:Scalp laceration-stapled. Eyes: Extraocular muscles intact. Anicteric sclerae. Pupils equal bilaterally, reactive to light. NECK: Supple without lymph node. CHEST: Clear and good breath sounds equally. No wheezing. No rhonchi. HEART: S1, S2. Regular rate and rhythm. ABDOMEN: Soft/non tender with no rebound tenderness. Bowel sounds were present. EXTREMITIES: RLE bandaged. No cyanosis, clubbing or edema. NEUROLOGIC: Alert and oriented x3. No focal deficit. No sensory deficit. PSYCHOSOCIAL: No signs of depression. INTEGUMENTARY: No open wounds. ASSESSMENT AND PLAN:83 yo M w/hearing loss,s/p cochlear implant, htn,cad,dm2,ckd here s/p fall found to have scalp lacerations and Right tibial/fibular fracture... Right tibia/fibula fracture -s/p ORIF -dvt ppx,pain control/rehab with specific weightbearing ordered by Chronic Anemia -stable hh -no blood tx needed at present ANDREAS on CKD stage III -renal function with not much fluctuation. Nephrology on board. Posterior scalp laceration -Status post washout/closure. -francisco intact/c/d/i DM2 -stable -Basal/Bolus insulin HTN -stable -cont.home meds Coronary artery disease -cont.ASA/beta-blockers/statin Dyslipidemia -on statin DVT prophylaxis: LovenoxX 6 WKS Patient was seen in collaboration with Dr. Baptiste Result Diagram: 04/11/19 0624 Results 24hrs Laboratory Tests Test 04/11/19 18:54 04/11/19 21:03 04/12/19 07:49 04/12/19 12:18 Bedside Glucose 162 156 138 122 Exam/Review of Systems Exam Vitals Vital Signs Date Temp Pulse Resp B/P (MAP) Pulse Ox O2 O2 Flow FiO2 Time Delivery Rate 04/12/19 97.7 71 18 123/62 95 Room Air 07:00 (82) Intake and Output 04/11/19 04/11/19 04/12/19 1515:00 23:00 07:00 IntakeIntake Total 300 ml 200 ml 100 ml OutputOutput Total 400 ml 200 ml BalanceBalance -100 ml 0 ml 100 ml Results Results 24hrs Laboratory Tests Test 04/11/19 18:54 04/11/19 21:03 04/12/19 07:49 04/12/19 12:18 Bedside Glucose 162 156 138 122 Medications Medication Current Medications Magnesium Hydroxide (Milk Of Mag) 30 ml HS PRN PO CONSTIPATION; Start 04/04/19 at 14:30 Lactulose (Enulose) 20 gm DAILY PRN PO CONSTIPATION Last administered on 04/10/19at 20:39; Admin Dose 20 GM; Start 04/04/19 at 14:30 Bisacodyl (Dulcolax Supp) 10 mg DAILY PRN [place] CONSTIPATION; Start 04/04/19 at 14:30 Acetaminophen (Tylenol Tab) 650 mg Q6H PRN PO PAIN; Start 04/04/19 at 14:30 Miscellaneous Information (Pending Santyl Order For Wound Care) This patient palma... PRN PRN XX WOUND CARE; Start 04/04/19 at 14:30 Aspirin (Halfprin) 81 mg DAILY PO Last administered on 04/12/19at 10:00; Admin Dose 81 MG; Start 04/05/19 at 09:00 Atenolol (Tenormin) 100 mg DAILY PO Last administered on 04/12/19 10:01; Admin Dose 100 MG; Start 04/05/19 at 09:00 Atorvastatin Calcium (Lipitor) 40 mg HS PO Last administered on 04/11/19 21:04; Admin Dose 40 MG; Start 04/04/19 at 21:00 Brimonidine Tartrate (Alphagan P 0.15%) 1 drop BID BOTH EYES Last administered on 04/12/19 10:02; Admin Dose 1 DROP; Start 04/04/19 at 21:00 Senna/Docusate Sodium (Senokot-S) 2 tab BID PRN PO CONSTIPATION; Start 04/04/19 at 14:30 Enoxaparin Sodium (Lovenox) 30 mg DAILY SC Last administered on 04/12/19 10:49; Admin Dose 30 MG; Start 04/05/19 at 09:00 Famotidine (Pepcid) 20 mg HS PO Last administered on 04/11/19 21:04; Admin Dose 20 MG; Start 04/04/19 at 21:00 Gabapentin (Neurontin) 300 mg HS PO Last administered on 04/11/19 21:04; Admin Dose 300 MG; Start 04/04/19 at 21:00 Oxycodone HCl (Roxicodone) 10 mg Q4H PRN PO MODERATE PAIN LEVEL 4-6 Last administered on 04/12/19 03:58; Admin Dose 10 MG; Start 04/04/19 at 14:30 Insulin Glargine (Lantus) 12 units DAILY@2000 SC Last administered on 04/11/19 21:25; Admin Dose 12 UNITS; Start 04/04/19 at 20:00 Insulin Aspart (Novolog Insulin Pen) NOVOLOG *MILD* ALGORITHM WITH MEALS BEDTIME SC Last administered on 04/11/19 19:14; Admin Dose 1 UNIT; Start 03/08 at 17:35 Diagnostic Test (Pha) (Accu-Chek) 1 ea 02 XX ; Start 04/05/19 at 02:00 Magnesium Hydroxide (Milk Of Mag) 30 ml DAILY PRN PO CONSTIPATION; Start 04/04/19 at 15:00 Oxycodone HCl (Roxicodone) 5 mg Q4H PRN PO MODERATE PAIN LEVEL 0-3; Start 04/04/19 at 15:00 Oxycodone HCl (Roxicodone) 15 mg Q6H PRN PO SEVERE PAIN LEVEL 7-10 Last administered on 04/10/19 08:20; Admin Dose 15 MG; Start 04/04/19 at 15:00 Simethicone (Mylicon) 80 mg TID PRN PO DISTENSION/GAS/BLOATING; Start 04/04/19 at 15:00 Diagnostic Test (Pha) (Accu-Chek) 1 ea AC MEALS AND BEDTIME XX Last administered on 04/09/19 21:09; Admin Dose 1 EA; Start 04/04/19 at 17:05 Miscellaneous Information 1 ea NOTE XX ; Start 04/04/19 at 15:30 Glucose (Glutose) 15 gm Q15M PRN PO DECREASED GLUCOSE; Start 04/04/19 at 15:30 Glucose (Glutose) 22.5 gm Q15M PRN PO DECREASED GLUCOSE; Start 04/04/19 at 15:30 Dextrose (D50w Syringe) 25 ml Q15M PRN IV DECREASED GLUCOSE; Start 04/04/19 at 15:30 Dextrose (D50w Syringe) 50 ml Q15M PRN IV DECREASED GLUCOSE; Start 04/04/19 at 15:30 Glucagon (Glucagen) 1 mg Q15M PRN IM DECREASED GLUCOSE; Start 04/04/19 at 15:30 Glucose (Glutose) 15 gm Q15M PRN BUCCAL DECREASED GLUCOSE; Start 04/04/19 at 15:30 Patient Own Medication 1 ea BID BOTH EYES Last administered on 04/12/19 10:01; Admin Dose 1 EA; Start 04/07/19 at 21:00 Patient Own Medication 1 ea BID LEFT EYE Last administered on 04/12/19 10:01; Admin Dose 1 EA; Start 04/07/19 at 21:00 Diphenhydramine HCl (Benadryl) 25 mg Q6H PRN PO ITCHING; Start 04/11/19 at 22:30; Stop 04/12/19 at 22:29 Ascorbic Acid (Vitamin C) 250 mg DAILY PO Last administered on 04/12/19 10:00; Admin Dose 250 MG; Start 04/12/19 at 09:00 Zinc Sulfate (Zinc Sulfate) 220 mg DAILY PO Last administered on 04/12/19 10:00; Admin Dose 220 MG; Start 04/12/19 at 09:00 Multivitamins Therapeutic (Theragran) 1 tab DAILY PO Last administered on 04/12/19 10:00; Admin Dose 1 TAB; Start 04/12/19 at 09:00 RUTH ANN HILARIO NP Apr 12, 2019 14:58
[2019-04-12 20:24] VITALS: BP 119/66; PULSE 92; RESP 18
[2019-04-12] MEDS: ATORVASTATIN 40 MG TAB PO SCH (20:39)
[2019-04-12] MEDS: GABAPENTIN 300 MG CAP PO SCH (20:39)
[2019-04-12] MEDS: FAMOTIDINE 20 MG TAB PO SCH (20:40)
[2019-04-12] MEDS: INSULIN GLARGINE [LANTus] (100 UNITS/ML) SYG SC SCH (20:44)
[2019-04-13] MEDS: ACCU-CHEK XX SCH ×2 (02:00→07:45)
[2019-04-13 02:12] VITALS: BP 114/56; PULSE 80; RESP 18
[2019-04-13 07:30] VITALS: BP 127/68; PULSE 75; RESP 20
[2019-04-13] MEDS: INSULIN ASPART [NOVOLOG] 3 ML PEN SC SCH (07:45)
--- NOTE | 2019-04-13 08:43 | PN ---
DATE: 04/13/2019 SUBJECTIVE: The patient is stable, no events overnight. OBJECTIVE: VITAL SIGNS: Blood pressure 123/62, pulse 92, respiration 18, temperature 98.1. HEENT: Head is normocephalic. NECK: Supple. HEART: Regular rate. LUNGS: Show diminished breath sounds at the base. ABDOMEN: Soft, nontender to palpation without rebound or guarding. EXTREMITIES: Negative for clubbing, cyanosis, no edema. DERMATOLOGIC: No rashes. MUSCULOSKELETAL: Patient has dressing on his lower extremities. NEUROLOGIC: No change in exam. MEDICATIONS: Have been reviewed. LABORATORY DATA: Has been reviewed. IMAGING STUDIES: Have been reviewed. ASSESSMENT AND PLAN: 1. Nonoliguric acute kidney injury on top of chronic kidney disease stage III with previous baseline creatinine 1.3 to 1.5 mg/dL. Etiology of acute kidney injury is secondary to hemodynamics. Renal f unction fluctuating but overall stable, continue to monitor. 2. Anemia. Monitor hemoglobin and hematocrit levels. 3. Mineral bone disorder. Monitor calcium and phosphorus levels. 4. Right tib-fib fracture status post open reduction internal fixation. Continue physical therapy, pain control. 5. Diabetes. Continue current insulin regimen. 6. Hypertension. Continue current blood pressure regimen. 7. Coronary artery disease. Dictated By: KARINA WOLFF DO NR/NTS Conf#: [id number] DID#: [id number] CC: KARI ARIZA MD;*EndCC*
[2019-04-13] MEDS: oxyCODONE 5 MG TAB PO PRN (08:51)
[2019-04-13] MEDS: ZINC SULFATE 220 MG CAP PO SCH (08:51)
[2019-04-13] MEDS: ASCORBIC ACID 250 MG TAB PO SCH (08:51)
[2019-04-13] MEDS: ASPIRIN (EC) 81 MG TAB PO SCH (08:52)
[2019-04-13] MEDS: [UNRECOGNIZED DRUG - OTHER] BOTH EYES SCH (08:52)
[2019-04-13] MEDS: MULTIVITAMINS THERAPEUTIC TAB PO SCH (08:52)
[2019-04-13] MEDS: ATENOLOL 100 MG TAB PO SCH (08:52)
[2019-04-13] MEDS: [UNRECOGNIZED DRUG - OTHER] LEFT EYE SCH (08:53)
[2019-04-13] MEDS: BRIMONIDINE 0.15% 5 ML OPH BOTH EYES SCH (08:54)
[2019-04-13] MEDS: ENOXAPARIN 30 MG/0.3 ML SYG SC SCH (09:01)
--- NOTE | 2019-04-13 12:49 | DS ---
Date/Time of Note Date/Time of Note DATE: 04/13/19 TIME: 12:48 Discharge Summary Admission/Discharge Info Admit Date/Time Apr 04, 2019 at 13:55 Discharge Date/Time Discharge Diagnosis 1. Right tibial fibula fracture status post intramedullary nailing. 2. Blunt head trauma with scalp laceration status post fall. 3. Acute on chronic kidney disease. 4. Anemia. 5. Coronary artery disease. 6. 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 7. Diabetes mellitus type 2. 8. Hypertension. 9. Hyperlipidemia. 10. Hard of hearing. 11. Impairments in self-care and mobility. Patient Condition: Good Hospital Course The patient was admitted for comprehensive interdisciplinary rehabilitation and made gradual limited functional gains from a Mod level to a min level for self care tasks and mobility. Patient was followed closely for medical issues, and now is ready to discharge to a lower level of care. The DC meds are per the medication reconciliation sheet. The patient will follow up with PMD upon DC. Home Meds Reported Medications Exenatide Microspheres (Bydureon Bcise) 2 Mg/0.85 Ml Auto.injct, 2 MG SQ Q7D 03/31/19 Brimonidine Tartrate* (Brimonidine Tartrate*) 0.15%-10ML Drop Opht, 1 DROP BOTH EYES BID, #1 EA 03/31/19 Metformin Hcl* (Metformin Hcl*) 1,000 Mg Tablet, 1000 MG PO WITH BREAKFAST DINNE, #60 TAB 03/31/19 Losartan Potassium* (Losartan Potassium*) 100 Mg Tablet, 100 MG PO DAILY, TAB 03/31/19 Icosapent Ethyl (VASCEPA) 1 Gm Capsule, 1 GM PO BID, CAP 03/31/19 Atenolol* (Atenolol*) 100 Mg Tablet, 100 MG PO DAILY, #30 TAB 03/31/19 Atorvastatin* (Atorvastatin*) 40 Mg Tablet, 40 MG PO QHS, #30 TAB 03/31/19 Primary Care Provider Vinicio Alvarado MD Pending Labs Laboratory Tests Test 04/12/19 17:37 04/12/19 20:38 04/13/19 07:49 04/13/19 11:54 Bedside 136 134 103 126 Glucose mg/dL (70-220) mg/dL (70-220) mg/dL (70-220) mg/dL (70-220) KARI ARIZA MD Apr 13, 2019 12:49
--- NOTE | 2019-04-13 14:25 | PN ---
Date/Time of Note Date/Time of Note DATE: 04/13/19 TIME: 14:25 Assessment/Plan VTE Prophylaxis Risk score (from Ns)>0 risk: 12 SCD applied (from Ns): Yes Pharmacological prophylaxis: LMWH Lines/Catheters IV Catheter Type (from Nrs): Saline Lock Urinary Cath still in place: No Assessment/Plan Hospital Course SUBJECTIVE: No acute distress. OBJECTIVE: Vital signs-see below PHYSICAL EXAM: Constitutional: Adequately built,not in acute distress. HEENT:Scalp laceration-stapled. Eyes: Extraocular muscles intact. Anicteric sclerae. Pupils equal bilaterally, reactive to light. NECK: Supple without lymph node. CHEST: Clear and good breath sounds equally. No wheezing. No rhonchi. HEART: S1, S2. Regular rate and rhythm. ABDOMEN: Soft/non tender with no rebound tenderness. Bowel sounds were present. EXTREMITIES: RLE bandaged. No cyanosis, clubbing or edema. NEUROLOGIC: Alert and oriented x3. No focal deficit. No sensory deficit. PSYCHOSOCIAL: No signs of depression. INTEGUMENTARY: No open wounds. ASSESSMENT AND PLAN:83 yo M w/hearing loss,s/p cochlear implant, htn,cad,dm2,ckd here s/p fall found to have scalp lacerations and Right tibial/fibular fracture... Right tibia/fibula fracture -s/p ORIF -dvt ppx,pain control/rehab with specific weightbearing ordered by Chronic Anemia -stable hh ANDREAS on CKD stage III -renal function with not much fluctuation. Nephrology on board. Posterior scalp laceration -Status post washout/closure. -francisco intact/c/d/i DM2 -stable -Basal/Bolus insulin HTN -stable -cont.home meds Coronary artery disease -cont.ASA/beta-blockers/statin Dyslipidemia -on statin DVT prophylaxis: LovenoxX 6 WKS Patient was seen in collaboration with Dr. Stuart Result Diagram: 04/11/19 0624 Results 24hrs Laboratory Tests Test 04/12/19 17:37 04/12/19 20:38 04/13/19 07:49 04/13/19 11:54 Bedside Glucose 136 134 103 126 Exam/Review of Systems Exam Vitals Vital Signs Date Temp Pulse Resp B/P (MAP) Pulse Ox O2 O2 Flow FiO2 Time Delivery Rate 04/13/19 97.7 75 20 127/68 98 Room Air 07:30 (87) Intake and Output 04/12/19 04/12/19 04/13/19 1515:00 23:00 07:00 IntakeIntake Total 240 ml 2400 ml 300 ml OutputOutput Total 600 ml 1400 ml 750 ml BalanceBalance -360 ml 1000 ml -450 ml Results Results 24hrs Laboratory Tests Test 04/12/19 17:37 04/12/19 20:38 04/13/19 07:49 04/13/19 11:54 Bedside Glucose 136 134 103 126 Medications Medication Current Medications Magnesium Hydroxide (Milk Of Mag) 30 ml HS PRN PO CONSTIPATION; Start 04/04/19 at 14:30 Lactulose (Enulose) 20 gm DAILY PRN PO CONSTIPATION Last administered on 04/10/19 20:39; Admin Dose 20 GM; Start 04/04/19 at 14:30 Bisacodyl (Dulcolax Supp) 10 mg DAILY PRN [place] CONSTIPATION; Start 04/04/19 at 14:30 Acetaminophen (Tylenol Tab) 650 mg Q6H PRN PO PAIN; Start 04/04/19 at 14:30 Miscellaneous Information (Pending Santyl Order For Wound Care) This patient palma... PRN PRN XX WOUND CARE; Start 04/04/19 at 14:30 Aspirin (Halfprin) 81 mg DAILY PO Last administered on 04/13/19 08:52; Admin Dose 81 MG; Start 04/05/19 at 09:00 Atenolol (Tenormin) 100 mg DAILY PO Last administered on 04/13/19 08:52; Admin Dose 100 MG; Start 04/05/19 at 09:00 Atorvastatin Calcium (Lipitor) 40 mg HS PO Last administered on 04/12/19 20:39; Admin Dose 40 MG; Start 04/04/19 at 21:00 Brimonidine Tartrate (Alphagan P 0.15%) 1 drop BID BOTH EYES Last administered on 04/13/19 08:54; Admin Dose 1 DROP; Start 04/04/19 at 21:00 Senna/Docusate Sodium (Senokot-S) 2 tab BID PRN PO CONSTIPATION; Start 04/04/19 at 14:30 Enoxaparin Sodium (Lovenox) 30 mg DAILY SC Last administered on 04/13/19 09:01; Admin Dose 30 MG; Start 04/05/19 at 09:00 Famotidine (Pepcid) 20 mg HS PO Last administered on 04/12/19 20:40; Admin Dose 20 MG; Start 04/04/19 at 21:00 Gabapentin (Neurontin) 300 mg HS PO Last administered on 04/12/19 20:39; Admin Dose 300 MG; Start 04/04/19 at 21:00 Oxycodone HCl (Roxicodone) 10 mg Q4H PRN PO MODERATE PAIN LEVEL 4-6 Last administered on 04/13/19 08:51; Admin Dose 10 MG; Start 04/04/19 at 14:30 Insulin Glargine (Lantus) 12 units DAILY@2000 SC Last administered on 04/12/19 20:44; Admin Dose 12 UNITS; Start 04/04/19 at 20:00 Insulin Aspart (Novolog Insulin Pen) NOVOLOG *MILD* ALGORITHM WITH MEALS BEDTIME SC Last administered on 04/11/19 19:14; Admin Dose 1 UNIT; Start 04/04/19 at 17:35 Diagnostic Test (Pha) (Accu-Chek) 1 ea 02 XX ; Start 04/05/19 at 02:00 Magnesium Hydroxide (Milk Of Mag) 30 ml DAILY PRN PO CONSTIPATION; Start 04/04/19 at 15:00 Oxycodone HCl (Roxicodone) 5 mg Q4H PRN PO MODERATE PAIN LEVEL 0-3; Start 04/04/19 at 15:00 Oxycodone HCl (Roxicodone) 15 mg Q6H PRN PO SEVERE PAIN LEVEL 7-10 Last administered on 04/10/19 08:20; Admin Dose 15 MG; Start 04/04/19 at 15:00 Simethicone (Mylicon) 80 mg TID PRN PO DISTENSION/GAS/BLOATING; Start 04/04/19 at 15:00 Diagnostic Test (Pha) (Accu-Chek) 1 ea AC MEALS AND BEDTIME XX Last administered on 04/13/19 07:45; Admin Dose 1 EA; Start 04/04/19 at 17:05 Miscellaneous Information 1 ea NOTE XX ; Start 04/04/19 at 15:30 Glucose (Glutose) 15 gm Q15M PRN PO DECREASED GLUCOSE; Start 04/04/19 at 15:30 Glucose (Glutose) 22.5 gm Q15M PRN PO DECREASED GLUCOSE; Start 04/04/19 at 15:30 Dextrose (D50w Syringe) 25 ml Q15M PRN IV DECREASED GLUCOSE; Start 04/04/19 at 15:30 Dextrose (D50w Syringe) 50 ml Q15M PRN IV DECREASED GLUCOSE; Start 04/04/19 at 15:30 Glucagon (Glucagen) 1 mg Q15M PRN IM DECREASED GLUCOSE; Start 04/04/19 at 15:30 Glucose (Glutose) 15 gm Q15M PRN BUCCAL DECREASED GLUCOSE; Start 04/04/19 at 15:30 Patient Own Medication 1 ea BID BOTH EYES Last administered on 04/13/19 08:52; Admin Dose 1 EA; Start 04/07/19 at 21:00 Patient Own Medication 1 ea BID LEFT EYE Last administered on 04/13/19 08:53; Admin Dose 1 EA; Start 04/07/19 at 21:00 Ascorbic Acid (Vitamin C) 250 mg DAILY PO Last administered on 04/13/19 08:51; Admin Dose 250 MG; Start 04/12/19 at 09:00 Zinc Sulfate (Zinc Sulfate) 220 mg DAILY PO Last administered on 04/13/19 08:51; Admin Dose 220 MG; Start 04/12/19 at 09:00 Multivitamins Therapeutic (Theragran) 1 tab DAILY PO Last administered on 04/13/19 08:52; Admin Dose 1 TAB; Start 04/12/19 at 09:00 RUTH ANN HILARIO NP Apr 13, 2019 14:25
== END 2019-04-13 16:35 | DRG 560 ==
LOC: VRC 13:55
PROVIDERS: ADMIT Physical Medicine & Rehabilitation; ATTEND Internal Medicine Pulmonary Disease
PROC: F07Z5ZZ Bed Mobility Treatment (ICD-10-PCS; principal; 2019-04-04)
PROC: F08Z2ZZ Grooming/Personal Hygiene Treatment (ICD-10-PCS; 2019-04-04)
DX: S82.401D Unspecified fracture of shaft of right fibula, subsequent encounter for closed fracture with routine healing (principal); N17.9 Acute kidney failure, unspecified; S82.201D Unspecified fracture of shaft of right tibia, subsequent encounter for closed fracture with routine healing; W19.XXXD Unspecified fall, subsequent encounter; D64.9 Anemia, unspecified; E83.9 Disorder of mineral metabolism, unspecified; E11.22 Type 2 diabetes mellitus with diabetic chronic kidney disease; I12.9 Hypertensive chronic kidney disease with stage 1 through stage 4 chronic kidney disease, or unspecified chronic kidney disease; N18.3 Chronic kidney disease, stage 3 (moderate); Z96.41 Presence of insulin pump (external) (internal); I25.10 Atherosclerotic heart disease of native coronary artery without angina pectoris; S01.01XD Laceration without foreign body of scalp, subsequent encounter; E78.5 Hyperlipidemia, unspecified; Z98.890 Other specified postprocedural states; M19.012 Primary osteoarthritis, left shoulder; Z79.4 Long term (current) use of insulin; F06.31 Mood disorder due to known physiological condition with depressive features
CPT/HCPCS: 73590; 80048; 80053; 81003; 82962; 83735; 84100; 85025; 87081; 87086; 97110; 97112; 97116; 97163; 97167; 97530; 97535; 97542; J1650; J1815; L4360-RT